=== PATIENT | female | born 1995 | race Caucasian/White ===

== ENCOUNTER → 2017-01-22 | Outpatient (CLI) | payer BC, MEDICAID ==
[~2017-01-22] MED LIST: AZTH250C PO; HYDR-3583 PO; IBP800T PO; PRD20T PO; SULF-222 PO
--- NOTE | 2017-01-22 14:16 | Diagnostic Imaging Report ---
PROCEDURE: US OB SINGLE FETUS <14 WKS. TECHNIQUE: Multiple real-time grayscale images were obtained over the gravid uterus in various projections. INDICATION: Uncertain dates. FINDINGS: There are no prior studies available for comparison. There is a gestational sac within the uterus containing a single live embryo. Embryonic heart motion is noted and a rate of 169 bpm is recorded. The crown-rump length suggests the estimated gestational age is 7 weeks 2 days +/- 1-1/2 week. There are no obvious embryonic abnormalities evident. The amniotic fluid volume is within normal limits. At this time, it is not certain where the placenta will develop. Neither ovary is identified. There is no solid pelvic mass or free fluid collection evident. IMPRESSION: 1. There is a single live intrauterine of approximately 7 weeks 2 days gestation +/- 1-1/2 week. EDC is September 08, 2017. 2. There are no obvious embryonic abnormalities identified. 3. If a more sensitive evaluation of the anatomy is desired, then a follow-up exam in 12-14 weeks will be recommended. Dictated by: Dictated on workstation # [id number]
== END ==
LOC: RAD 11:30
PROVIDERS: ATTEND Family Medicine
DX: Z36 Encounter for antenatal screening of mother (principal); Z3A.01 Less than 8 weeks gestation of pregnancy
CPT/HCPCS: 76801

== ENCOUNTER 2017-02-23 20:13 | Emergency (ER) | payer BC ==
[~2017-02-23] VITALS: Ht 167.6 cm; Wt 64.0 kg
[2017-02-23] MEDS ORDERED: ALBU2.5V4 (21:19)
[2017-02-23] MEDS ORDERED: AZIT250T12 (21:19)
[2017-02-23] MEDS ORDERED: PROM25TA14 (21:19)
[2017-02-23] MEDS ORDERED: RT-ALBUTEROL SULF 2.5 MG/3 ML PRE-MIX VIAL INH STA (21:51)
[2017-02-23] MEDS ORDERED: predniSONE 20 MG TAB PO ONE (22:00)
[2017-02-23] MEDS ORDERED: CEPHALEXIN 250 MG (KEFLEX) CAP PO ONE (22:00)
--- NOTE | 2017-02-23 22:12 | ED Cough/URI ---
General Chief Complaint: Respiratory Problems Stated Complaint: CHEST PAIN POSS PNEUMONIA 12 WKS PG Nursing Triage Note: COUGH, CHEST WALL PAIN NO IMPROVEMENT WITH ABX. 12WEEKS Source: patient Exam Limitations: no limitations History of Present Illness Time seen by provider: 21:45 Initial Comments 21-year-old female patient presents to the emergency department complains of cough, chest wall pain with coughing, and wheezing. States she is approximately 12 weeks . Patient was started on Zithromax on by Dr. Israel. Also placed on albuterol breathing treatments without improvement in symptoms. Does state she is coughing up clear sputum. Denies fevers or chills. Patient has a h/o asthma but "grew out of it". Patient reports smoking until 2 wks ago, but significant other still smokes around the patient. Timing/Duration: week Severity/Quality: productive cough (clear productive cough) Prior Episodes/Possible Cause: no prior episodes Modifying Factors: Worse With Antibiotics (no improvement with antibiotics and albuterol.), Worse With Coughing Allergies and Home Medications Allergies Coded Allergies: No Known Drug Allergies (Unverified , 12/28/12) Home Medications Albuterol Sulfate 2.5 Mg/3 Ml Vial.neb, (Reported) Albuterol Sulfate 2.5 Mg/3 Ml Vial.neb, 2.5 MG IH Q4H PRN for SHORTNESS OF BREATH, #25 Ref 0 Prescribed by: JOSE RICO on 02/23/172225 Azithromycin 250 Mg Tablet, (Reported) Cephalexin 500 Mg Capsule, 500 MG PO TID, #21 Ref 0 Prescribed by: JOSE RICO on 02/23/172225 Prednisone 20 Mg Tab, 40 MG PO DAILY, #8 Ref 0 Prescribed by: JOSE RICO on 02/23/176 Promethazine HCl 25 Mg Tablet, (Reported) Constitutional: No chills, No fever, malaise EENTM: nose congestion, No ear discharge, No ear pain, No throat pain, No throat swelling Respiratory: No see HPI, cough, No dyspnea on exertion, phlegm, No short of breath, No stridor, wheezing, other (rib pain with coughing.) Cardiovascular: No chest pain, No edema, No palpitations, No syncope Gastrointestinal: No abdominal pain, No constipation, No diarrhea, No nausea, No vomiting Genitourinary: no symptoms reported Expected Date of Delivery: Sep 08, 2017 Musculoskeletal: no symptoms reported Skin: no symptoms reported Psychiatric/Neurological: No Symptoms Reported All Other Systems Reviewed Negative Unless Noted: Yes (Negative excepted noted.) Past Soekhlc-Wnhhre-Dshqth Hx Patient Social History Alcohol Use: Denies Use Recreational Drug Use: No Smoking Status: Never a Smoker 2nd Hand Smoke Exposure: No Recent Foreign Travel: No Contact w/Someone Who Travel: No Recent Infectious Disease Expo: No Recent Hopitalizations: No Immunizations Up To Date Tetanus Booster (TDap): Unknown PED Vaccines UTD: Yes Seasonal Allergies Seasonal Allergies: No Surgeries History of Surgeries: Yes Surgeries: Breast, Eye Surgery Respiratory History of Respiratory Disorde: Yes (BRONCHITIS) Respiratory Disorders: Asthma Cardiovascular History of Cardiac Disorders: No Neurological History of Neurological Disord: No Reproductive System : Yes Expected Date of Delivery: Sep 08, 2017 Last Menstrual Period: Nov 25, 2016 Hx : 1 Hx Para: 0 Hx Reproductive Disorders: No Genitourinary History of Genitourinary Disor: No Gastrointestinal History of Gastrointestinal Di: No Musculoskeletal History of Musculoskeletal Dis: No Endocrine History of Endocrine Disorders: No HEENT History of HEENT Disorders: No Cancer History of Cancer: No Psychosocial History of Psychiatric Problem: Yes Behavioral Health Disorders: Anxiety, Depression Integumentary History of Skin or Integumenta: No Blood Transfusions History of Blood Disorders: No Adverse Reaction to a Blood Tr: No Reviewed Nursing Assessment Reviewed/Agree w Nursing PMH: Yes Family Medical History Significant Family History: No Pertinent Family Hx Physical Exam Vital Signs Vital Sign - Last 12Hours 02/23/17 21:19 Temp 98.7 Pulse 105 Resp 18 B/P (MAP) 97/65 Pulse Ox 93 O2 Delivery Room Air Capillary Refill : Less Than 3 Seconds General Appearance: WD/WN, no apparent distress HEENT: PERRL/EOMI, normal ENT inspection, TMs normal, pharynx normal Neck: non-tender, full range of motion, supple, normal inspection Respiratory: no respiratory distress, no accessory muscle use, other (coarse BS bilaterally in all lung ontiveros. Anterior chest wall TTP.) Cardiovascular: normal peripheral pulses, regular rate, rhythm, no edema, no murmur Gastrointestinal: normal bowel sounds, non tender, soft, no organomegaly Extremities: no pedal edema, normal capillary refill Neurologic/Psychiatric: alert, normal mood/affect, oriented x 3 Skin: normal color, warm/dry Progress/Results/Core Measures Results/Orders My Orders Orders - JOSE RICO Albuterol Pre-Mix Nebs (Rt) (Proventil P (02/23/17 21:51) Svn Sm Volume Nebulizer Rt-Rfs (02/23/17 21:51) Prednisone Tablet (Deltasone Tablet) (02/23/17 22:00) Cephalexin Capsule (Keflex Capsule) (02/23/17 22:00) Medications Given in ED Current Medications Medications Dose Ordered Sig/Rey Route Start Time Stop Time Status Last Admin Dose Admin Cephalexin HCl 500 mg ONCE ONCE PO 02/23/17 22:00 02/23/17 22:01 DC 02/23/17 22:01 500 MG Prednisone 40 mg ONCE ONCE PO 02/23/17 22:00 02/23/17 22:01 DC 02/23/17 22:00 40 MG Vital Signs/I&O Vital Sign - Last 12Hours 02/23/17 02/23/17 21:19 22:06 Temp 98.7 Pulse 105 Resp 18 B/P (MAP) 97/65 Pulse Ox 93 99 O2 Delivery Room Air Room Air Blood Pressure Mean: 76 Departure Communication (Admissions) Progress Notes Patient seen and evaluated. I did offer CXR to the patient and have discussed all risks, benefits, and possible complications. Patient does NOT want CXR performed at this time. Therefore, patient was given keflex 500 mg po, prednisone 40 mg po and an albuterol neb tx. Patient shows improved BS bilaterally with BS clear in all lung ontiveros. Patient voices feeling much better at this time. Plan for discharge to home. Patient follow-up with Dr. Israel on as previously scheduled. Impression Impression: Primary Impression: Acute bronchitis Qualified Codes: J20.9 - Acute bronchitis, unspecified Additional Impression: 12 weeks gestation of Disposition: HOME, SELF-CARE Condition: Improved Departure-Patient Inst. Decision time for Depature: 22:23 Referrals: [facility] (PCP/Family) Primary Care Physician JOSE EDUARDO ISRAEL MD Patient Instructions: Acute Bronchitis, Adult (DC) Add. Discharge Instructions: All discharge instructions reviewed with patient and/or family. Voiced understanding. Medications as directed. Tylenol extra strength [id number] as directed for pain. Avoid exposure to cigarette smoke. Drink plenty of fluids. Rest. Follow-up with Dr. Israel this week as previously scheduled. Return to the emergency department for worsened symptoms or any other concerns. Scripts Albuterol Sulfate (Albuterol Sulfate) 2.5 Mg/3 Ml Vial.neb 2.5 MG IH Q4H Y for SHORTNESS OF BREATH, #25 EA 0 Refills Prov: JOSE RICO 02/23/17 Prednisone (Prednisone) 20 Mg Tab 40 MG PO DAILY, #8 TAB 0 Refills Prov: JOSE RICO 02/23/17 Cephalexin (Cephalexin) 500 Mg Capsule 500 MG PO TID, #21 CAP 0 Refills Prov: JOSE RICO 02/23/17 Work/School Note: Work Release Form Date Seen in the Emergency Department: Feb 23, 2017 Return to Work: Feb 25, 2017 JOSE RICO Feb 23, 2017 22:11
[2017-02-23] MEDS ORDERED: PRD20T PO (22:26)
[2017-02-23] MEDS ORDERED: CEPH500C PO (22:26)
[2017-02-23] MEDS ORDERED: ALBU2.5V4 IH (22:26)
[2017-02-23 22:47] VITALS: BP 115/73
== END 2017-02-23 22:45 | disposition home or self-care (01) ==
LOC: EDUNIT# 20:13 → ER 20:16
DX: O99.511 Diseases of the respiratory system complicating pregnancy, first trimester (principal); J20.9 Acute bronchitis, unspecified; J45.909 Unspecified asthma, uncomplicated; O99.341 Other mental disorders complicating pregnancy, first trimester; F41.9 Anxiety disorder, unspecified; F32.9 Major depressive disorder, single episode, unspecified; Z3A.12 12 weeks gestation of pregnancy
CPT/HCPCS: 94640; 99283

== ENCOUNTER → 2017-07-29 | Outpatient (CLI) | payer BC, MEDICAID ==
[~2017-07-29] MED LIST changes: +ALBU2.5V4; +ALBU2.5V4 IH; +AZIT250T12; +CEPH500C PO; +PROM25TA14
--- NOTE | 2017-07-29 12:55 | Diagnostic Imaging Report ---
INDICATION: Evaluate growth, four-chamber heart view, as well as amniotic fluid volume and placenta. TECHNIQUE: Multiple real-time grayscale images were obtained over the gravid uterus. COMPARISON: 04/08/2017. FINDINGS: There is a single live fetus in a cephalic presentation. The placenta is fundal. The amniotic fluid volume is normal. heart rate was recorded at 138 beats per minute. Cervix is 3.6 cm in length. survey does show four-chamber heart view on today's exam. Biometrical measurements are as follows: Biparietal 8.28 cm, age 33 weeks 3 days. Head circumference 30.11 cm, age 33 weeks 3 days. Abdominal circumference 29.28 cm, age 33 weeks 2 days. Femur length 6.32 cm, age 32 weeks 5 days. Sonographic estimate age: 33 weeks 2 days. Sonographic estimated date of delivery: 09-08-17. Estimated Weight: 2124 gm (+/- 310 gm). LMP percentile: 18%. heart rate: 138 beats per minute. number: 1 of 1. IMPRESSION: Single live IUP approximately 33 weeks gestational age demonstrating normal interval growth when compared with prior exam from 04/08/2017. Dictated by: Dictated on workstation # [id number]
== END ==
LOC: RAD 10:34
PROVIDERS: ATTEND Family Medicine
DX: Z34.03 Encounter for supervision of normal first pregnancy, third trimester (principal); Z3A.33 33 weeks gestation of pregnancy
CPT/HCPCS: 76816

== ENCOUNTER → 2017-08-14 | Outpatient (CLI) | payer MEDICAID ==
[~2017-08-14] MED LIST changes: +NITR-65 PO; +PREN-53 PO
--- NOTE | 2017-08-14 16:36 | Diagnostic Imaging Report ---
INDICATION: Small for gestational age, followup. TECHNIQUE: Multiple real-time grayscale images were obtained over the gravid uterus. COMPARISON: 01/22/2017 through 07/29/2017. FINDINGS: Single viable intrauterine , currently in cephalic presentation. Lower limits amount of amniotic fluid with an index at 8.8 cm. Placenta is along the fundal aspect and without previa. Biometrical growth parameters demonstrate an estimated age of 34 weeks 3 days for an estimated date of September 22, 2017. This is approximately 2 weeks delayed compared to baseline dating. Biometrical measurements are as follows: Biparietal 8.44 cm, age 24 weeks 0 days. Head circumference 30.66 cm, age 34 weeks 2 days. Abdominal circumference 29.5 cm, age 33 weeks 4 days. Femur length 6.93 cm, age 35 weeks 4 days. Sonographic estimate age: 34 weeks 2 days. Sonographic estimated date of delivery: 09/22/2017. Estimated Weight: 2373 gm (+/- 346 gm). LMP percentile: 8%. heart rate: 127 beats per minute. number: 1 of 1. IMPRESSION: Single viable intrauterine , currently in cephalic presentation. Current sonographically estimated age at 34 weeks 3 days for an estimated date of delivery of September 22, 2017. This is measuring approximately 2 weeks delayed compared to baseline assessment and 8 days delayed compared to most recent imaging. Clinical correlation is recommended. Dictated by: Dictated on workstation # [id number]
== END ==
LOC: RAD 15:24
PROVIDERS: ATTEND Family Medicine
DX: O36.5930 Maternal care for other known or suspected poor fetal growth, third trimester, not applicable or unspecified (principal); Z3A.34 34 weeks gestation of pregnancy
CPT/HCPCS: 76816

== ENCOUNTER 2017-08-15 16:40 | Outpatient (RCR) | payer MEDICAID ==
[~2017-08-15 16:40] MED LIST changes: -NITR-65 PO; -PREN-53 PO
[2017-08-15] MEDS ORDERED: BETAMETHASONE ACE/NA PHOS 6 MG/ML (CELESTONE SOLUSPAN) ONE ×2 (16:45→16:47)
[2017-08-15] MEDS ORDERED: BETAMETHASONE ACE/NA PHOS 6 MG/ML (CELESTONE SOLUSPAN) IM SCH (17:00)
[2017-08-16] MEDS ORDERED: BETAMETHASONE ACE/NA PHOS 6 MG/ML (CELESTONE SOLUSPAN) IM ONE ×3 (09:00)
[2017-08-16] MEDS ORDERED: BETAMETHASONE ACE/NA PHOS 6 MG/ML (CELESTONE SOLUSPAN) IM SCH (16:00)
[2017-08-16] MEDS ORDERED: NITR-65 PO (16:58)
[2017-08-16] MEDS ORDERED: PREN-53 PO (16:58)
[2017-08-18] MEDS ORDERED: LORA1TAB PO (18:37)
[2017-08-18] MEDS ORDERED: IBUP-1773 PO (18:37)
[2017-08-18] MEDS ORDERED: ACHD5005 PO (18:37)
[2017-08-18] MEDS ORDERED: NITR100C10 PO (18:37)
== END 2017-11-13 | disposition home or self-care (01) ==
LOC: WSo 16:40 → LDRP 16:40 → WSo 17:00 → LDRP 17:00 → EDSTATUS 08-16 15:54
PROVIDERS: ATTEND Family Medicine
DX: O36.5930 Maternal care for other known or suspected poor fetal growth, third trimester, not applicable or unspecified (principal)
CPT/HCPCS: 96372

== ENCOUNTER 2017-08-16 16:33 | Outpatient (CLI) | payer MEDICAID ==
[2017-08-16] MEDS ORDERED: BETAMETHASONE ACE/NA PHOS 6 MG/ML (CELESTONE SOLUSPAN) IM NR (16:45)
[2017-08-16] MEDS ORDERED: BETAMETHASONE ACE/NA PHOS 6 MG/ML (CELESTONE SOLUSPAN) IM SCH (16:45)
[2017-08-16 16:46] VITALS: BP 124/74
[2017-08-16] MEDS ORDERED: NITR-65 PO (16:58)
[2017-08-16] MEDS ORDERED: PREN-53 PO (16:58)
[2017-08-17] MEDS ORDERED: RT-ALBUTEROL/IPRATROPIUM 3 ML (DUONEB) VIAL ONE (01:22)
--- NOTE | 2017-08-18 16:22 | Physician Query-Final Dx ---
JUNIE LOCKHART 08/18/17 1622: Clinic Account Progress/Dx Physician Query: Please give diagnosis Date of Service Aug 16, 2017 at 16:33 ABHINAV GOEL DO 08/18/17 1720: Clinic Account Progress/Dx DIAGNOSIS: Diagnosis Decreased Movement JUNIE LOCKHART Aug 18, 2017 16:22 ABHINAV GOEL DO Aug 18, 2017 17:20
== END 2017-08-16 17:00 | disposition home or self-care (01) ==
LOC: WSo 16:33 → LDRP 16:34 → WSo 17:00
PROVIDERS: ATTEND Family Medicine
DX: O36.8130 Decreased fetal movements, third trimester, not applicable or unspecified (principal); Z3A.36 36 weeks gestation of pregnancy
CPT/HCPCS: 96372

== ENCOUNTER 2017-08-17 20:20 | Inpatient (IN) | payer MEDICAID ==
[~2017-08-17] VITALS: Ht 167.6 cm; Wt 76.4 kg
[~2017-08-17 20:20] MED LIST changes: +NITR-65 PO; +PREN-53 PO
[2017-08-17] MEDS ORDERED: MINERAL OIL CONCENTRATE 99.9% 15 ML UDC TOP PRN (20:30)
[2017-08-17] MEDS ORDERED: DINOPROSTONE 10 MG (CERVIDIL) INSERT PV ONE (20:30)
[2017-08-17] MEDS ORDERED: ZOLPIDEM 5 MG (AMBIEN) TAB PO PRN (20:30)
[2017-08-17 21:29] LABS: BASOPHILS % (AUTO) 0 % (0-10); EOSINOPHILS % (AUTO) 0 % (0-10); HEMATOCRIT 33 % (35-52); HEMOGLOBIN 11.1 G/DL (11.5-16.0); LYMPHOCYTES # (AUTO) 2.5 X 10^3 (1.0-4.0); LYMPHOCYTES % (AUTO) 13 % (12-44); MEAN CORPUSCULAR HEMOGLOBIN 31 PG (25-34); MEAN CORPUSCULAR HGB CONC 34 G/DL (32-36); MEAN CORPUSCULAR VOLUME 90 FL (80-99); MONOCYTES # (AUTO) 1.6 X 10^3 (0.0-1.0); MONOCYTES % (AUTO) 9 % (0-12); NEUTROPHILS # (AUTO) 14.5 X 10^3 (1.8-7.8); NEUTROPHILS % (AUTO) 78 % (42-75); PLATELET COUNT 235 10^3/uL (130-400); RED BLOOD COUNT 3.62 10^6/uL (4.35-5.85); RED CELL DISTRIBUTION WIDTH 13.5 % (10.0-14.5); WHITE BLOOD COUNT 18.7 10^3/uL (4.3-11.0)
[2017-08-17] MEDS: D5 LR IV SOLUTION 1,000 ML IV SCH (21:29)
[2017-08-17 21:30] VITALS: BP 128/78
[2017-08-17 22:00] VITALS: BP 135/91
[2017-08-17] MEDS ORDERED: CATHETER FLUSH 10 ML SYR IV SCH (22:00)
[2017-08-17 22:14] VITALS: BP 118/75
[2017-08-17 22:15] VITALS: BP 125/75
[2017-08-17 23:15] VITALS: BP 110/63
[2017-08-17] MEDS ORDERED: BUTORPHANOL INJ 2 MG/ML (STADOL) VIAL IV ONE (23:30)
[2017-08-18] VITALS (63 sets, daily range): BP systolic 90–135; BP diastolic 50–83
[2017-08-18] MEDS ORDERED: BUTORPHANOL INJ 2 MG/ML (STADOL) VIAL IV ONE (00:45)
[2017-08-18] MEDS: D5 LR IV SOLUTION 1,000 ML IV SCH ×2 (03:13→09:57)
--- NOTE | 2017-08-18 06:05 | History & Physical-OB ---
OB - Chief Complaint & HPI Date/Time Date of Admission: Date of Admission: Aug 17, 2017 at 20:20 Time Seen by Provider: 06:30 Chief Complaint/History OB-Reason for Admission/Chief: Induction of Labor Hx : 1 Hx Para: 0 Hx Last Menstrual Period: 12/01/2016 Expected Date of Delivery: Sep 08, 2018 Gestational Age in Weeks: 37 Gestational Age in Days: 0 Indication for induction: other ( growth restriction with continued dropping off of growth, decreasing HERMANN) Admission Nurse Assessment Rev: Yes Allergies and Home Medications Allergies Coded Allergies: No Known Drug Allergies (Unverified , 12/28/12) Home Medications Qoh253/Iron Fumarate/FA/Dss 1 Each Tablet, 1 EACH PO DAILY, (Reported) Patient Home Medication List Home Medication List Reviewed: Yes OB - History Hx of Present Care: Yes Ultrasounds: Normal mid trimester US (poor heart views; appropriate cardiac views obtained on repeat US at 33 wks), Abnormal US findings ( growth trending down, with most recent US at 36 4/7 wks showing growth now dropped to 8th %-tile with assymetric growth and HC <2nd %-tile; previous growth three weeks prior showed growth symmetric in 18th %-tile) Obstetrical Complications: Growth Restriction Medical Complications: None Information Pre-Hospital Medication Admins: Macrobid for suspected UTI started on 08/14/17, culture pending Induced Hypertension: No Maternal Gestational Diabetes: No Hemorrhage: No Obstetrical History Hx : 1 Hx Para: 0 Hx # Term Pregnancies: 0 Hx # Pregnancies: 0 Number of Living Children: 0 Hx Termination: No Hx Total # of Abortions (Spona: 0 Hx Multiple Gestation: No Hx Ectopic : No Hx Stillbirth: No Hx Complication: No Hx Induced Hypertens: No Hx Maternal Gestational Diabet: No Hx Hemorrhage: No Delivery History Hx Dystocia: No Hx Forceps Assisted Delivery: No Hx Vacuum Extraction Assisted: No Hx Placenta Abnormality: No Hx Distress: No Hx Large For Gestational Age I: No Hx Small for Gestational Age I: No Hx Section: No Hx Vaginal Delivery Post C-Sec: No Hx Blood Disorders: No Adverse Rxn to Tranfusion: No Patient Past Medical History mild intermittent asthma scoliosis bipolar disorder depression tobacco abuse PTSD 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 Migraines Social History/Family History HIV/AIDS: No Recent Infectious Disease Expo: No Sexually Transmitted Disease: No Alcohol Use: Denies Use Recreational Drug Use: No Smoking Cessation: Former smoker 2nd Hand Smoke Exposure: No Immunizations Hepatitis A: Yes Hepatitis B: Yes Tetanus Booster (TDap): Less than 5yrs Rubella: immune RPR/VDRL: Negative GBS Status: Negative HBsAG: Negative OB - Admission Exam Physical Exam Vitals: Vital Signs 08/18/17 08/18/17 03:50 04:15 Temp 97.2 Pulse 87 Resp 18 B/P (MAP) 111/71 (84) Pulse Ox 100 O2 Delivery Non Rebreather O2 Flow Rate 15.00 HEENT: NCAT Lungs: Wheezes, Diffuse Abdomen: Gravid Extremities: Normal Reflexes: Normal Cervical Dilatation: 3cm Effacement: Other (80%) Station: -2 Membranes: Intact Heart Rate: 130's Accelerations: Accelerations Present Decelerations: No Decelerations Mcc Variability: Average (6-25) Nuñez Scoring Tool (Modified) Dilation (cm): 3-4cm (2) Effacement (%): 80-100% (3) Descent/Station: -2 (1) Cervix Consistency: Soft (2) Cervix Position: Anterior (2) Subtract 1 point for: Nulliparity (-1) Nuñez Score: 9 Labs Laboratory Tests Test 08/17/17 21:00 Range/Units White Blood Count 18.7 H 4.3-11.0 10^3/uL Red Blood Count 3.62 L 4.35-5.85 10^6/uL Hemoglobin 11.1 L 11.5-16.0 G/DL Hematocrit 33 L 35-52 % Mean Corpuscular Volume 90 80-99 FL Mean Corpuscular Hemoglobin 31 25-34 PG Mean Corpuscular Hemoglobin Concent 34 32-36 G/DL Red Cell Distribution Width 13.5 10.0-14.5 % Platelet Count 235 130-400 10^3/uL Mean Platelet Volume 13.0 H 7.4-10.4 FL Neutrophils (%) (Auto) 78 H 42-75 % Lymphocytes (%) (Auto) 13 12-44 % Monocytes (%) (Auto) 9 0-12 % Eosinophils (%) (Auto) 0 0-10 % Basophils (%) (Auto) 0 0-10 % Neutrophils # (Auto) 14.5 H 1.8-7.8 X 10^3 Lymphocytes # (Auto) 2.5 1.0-4.0 X 10^3 Monocytes # (Auto) 1.6 H 0.0-1.0 X 10^3 Eosinophils # (Auto) 0.0 0.0-0.3 10^3/uL Basophils # (Auto) 0.0 0.0-0.1 10^3/uL OB - Assessment/Plan/Diagnosis Assessment Assessment: induction of labor Admission Dx 37 week IUP Growth Restriction with Asymmetric Growth Induction of Labor GBS Negative Admission Status: Inpatient Order (span 2 midnights) Reason for Inpatient Admission: status at this gestation favors delivery Plan Plan: Induction Induction Method: per Pitocin Protocol Other Plan Patient was a transfer of care to my care at ~32 wks gestation; originally had established care with Dr. Almaraz, had a normal 18-19 week US at [facility], and then transferred care from him to an unknown provider until arriving for 32 wk visit in our office. Patient reports that had been uncomplicated. No previous records were received. Morphology scan was reviewed and noted that four chamber heart was not well visualized, and follow up US was ordered. This was obtained at [facility] at 33 weeks gestation, and showed normal heart views and symmetric growth that was in the 18th %-tile. Previous US had shown growth in the 40-50th %-tile for dates. Repeat growth scan was obtained on 08/14 at 36 4/7 wks. When report reviewed in [facility] system, noted that growth now appeared asymmetric with HC < 2nd %-tile and overall growth in 8th %-tile. Given gestation and poor interval growth, patient was contacted and findings discussed. Recommended late course of betamethasone and then induction 24 hours later. Risks and benefits discussed with patient, questions answered and understanding verbalized. Pt is now 36 hrs s/p betamethasone x2 and 37 0/7 wks gestation. She received Cervidil last night for cervical ripening, and contracted well, at one point having a period of hyperstimulation. She has made some cervical change, was 3 cm at 0200. Cervidil was pulled around 0200 for hyperstimulation. Patient desires epidural prior to AROM, as she is very uncomfortable with cervical exams. Will have epidural placed and then have AROM and pitocin. Okay to give stadol now as patient is very anxious about epidural. On exam lung sounds with diffuse wheezing and mildly diminished in bilateral bases. Pt is a smoker. WBC elevated on admission. Pt was being treated for UTI as outpatient. Possibilities for elevated WBC include recent betamethasone administration, UTI prior to admission or possible pneumonic process, although find pneumonic process less likely as patient denies shortness of breath. Will continue to monitor and if concerns arise, will obtain CXR. Anticipate vaginal delivery. Copy Copies To 1: ABHINAV GOEL MARGARET E DO Aug 18, 2017 06:05
[2017-08-18] MEDS ORDERED: BUTORPHANOL INJ 2 MG/ML (STADOL) VIAL IV NR (07:15)
[2017-08-18] MEDS ORDERED: LACTATED RINGERS 1,000 ML IV SCH (08:41)
[2017-08-18] MEDS ORDERED: METOCLOPRAMIDE INJ 10 MG/2 ML (REGLAN) IV PRN (08:45)
[2017-08-18] MEDS ORDERED: ONDANSETRON 4 MG/2 ML (SDV) Z0FRAN IV PRN (08:45)
[2017-08-18] MEDS ORDERED: NALOXONE 0.4 MG/ML 1 ML (NARCAN) VIAL IV PRN ×2 (08:45)
[2017-08-18] MEDS ORDERED: EPIDURAL (SUFENTA 0.6MCG/ML BUPIVA 0.125%) 100 ML BAG EPI SCH (08:45)
[2017-08-18] MEDS ORDERED: diphenhydrAMINE 50 MG/ML INJ (BENADRYL) IV PRN (08:45)
[2017-08-18] MEDS: OXYTOCIN/NORMAL SALINE 500 ML IV SCH ×2 (09:15→15:52)
--- OUTSIDE RECORDS SUMMARY | 2017-08-18 10:25 | XMS REPORT ---
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 mention of hyperactivity 314.00 Active 53715178 Problem Migraine with aura, without mention of intractable migraine without mention of status migrainosus 346.00 Active 865643983 Problem Unspecified anemia 285.9 Active 158640753 Problem Unspecified contraceptive management V25.9 Active 242220886 Problem General counseling for initiation of other contraceptive measures V25.02 Active 173313393284542 Problem Asthma, unspecified, unspecified status 493.90 Active 49031744 Problem Major depressive disorder, recurrent episode, severe, without mention of psychotic behavior 296.33 Active 01958620 Problem Scoliosis (and kyphoscoliosis), idiopathic 737.30 Active 04135249 Problem Unspecified episodic mood disorder 296.90 Active 588487939 Problem Posttraumatic stress disorder 309.81 Active 14070529 Problem Bipolar disorder, unspecified 296.80 Active 30121483 Problem Surveillance of other previously prescribed contraceptive method V25.49 Active 835150193 ALLERGIES Unknown Allergies SOCIAL HISTORY No smoking Hx information available PLAN OF CARE VITAL SIGNS MEDICATIONS Unknown Medications RESULTS No Results PROCEDURES No Known procedures IMMUNIZATIONS No Known Immunizations
--- OUTSIDE RECORDS SUMMARY | 2017-08-18 10:25 | XMS REPORT | Continuity of Care Document ---
Author Author [employer] Organization [facility] Address Unknown Phone Unavailable Care Team Providers Care Guest Services Assistant Name Role Phone [employer] Unavailable Unavailable Problems Problem Status Onset Date Classification Date Reported Comments Source Asthma (disorder) Active Problem 07/02/2013 [facility] Depressive disorder (disorder) Active Problem 07/02/2013 [facility] Medications Medication Details Route Status Patient Instructions Ordering Provider Order Date Source Albuterol 0.083% Soln Inhaled, PRN Wheezing or Cough, Refill(s) 0 [facility] Depo-Provera 1 injection, every 3 months, last dose was 2011, Refill(s) 0 every 3 months, last dose was 2011 [facility] Allergies, Adverse Reactions, Alerts Immunizations Results Vital Signs Encounters Location Location Details Encounter Type Encounter Number Reason For Visit Attending Provider ADM Date DC Date Status Source CMB CMB CLI [id number] stents per mom Lorenzo Hartman 07/01/2013 07/01/2013 [facility] Procedures Plan of Care Social History Assessment and Plan Family History Advance Directives Functional Status
--- OUTSIDE RECORDS SUMMARY | 2017-08-18 10:26 | XMS REPORT ---
Author Author UNA ROMANO [facility] [employer] Address Unknown Phone Unavailable Care Team Providers Care Spring Former Hand Name Role Phone UNA ROMANO CP Unavailable Allergies, Adverse Reactions, Alerts Substance Reaction Event Type N.K.D.A. Info Not Available Non Drug Allergy Problems Problem Type Condition Code Onset Dates Condition Status Problem Posttraumatic stress disorder 309.81 Active Problem Nondependent tobacco use disorder 305.1 Active Problem Surveillance of other previously prescribed contraceptive method V25.49 Active Problem Unspecified contraceptive management V25.9 Active Problem General counseling for initiation of other contraceptive measures V25.02 Active Problem Attention deficit disorder of childhood without mention of hyperactivity 314.00 Active Problem Unspecified hypertrophic and atrophic condition of skin 701.9 Active Problem Enthesopathy of unspecified site 726.90 Active Problem Migraine with aura, without mention of intractable migraine without mention of status migrainosus 346.00 Active Problem Unspecified anemia 285.9 Active Problem Unspecified episodic mood disorder 296.90 Active Problem Bipolar disorder, unspecified 296.80 Active Assessment Screening breast examination Z12.39 Active Problem Major depressive disorder, recurrent episode, severe, without mention of psychotic behavior 296.33 Active Problem Asthma, unspecified, unspecified status 493.90 Active Problem Scoliosis (and kyphoscoliosis), idiopathic 737.30 Active Medications Medication Code System Code Instructions Start Date End Date Status Dosage Diflucan [facility] [address]-68 150 MG Orally one time December 05, 2015 1 tablet Lamictal [facility] [address]-93 25 MG Orally Once a day at HS May 11, 2015 1 tablets Voltaren [facility] [address]-77 1 % Transdermal 4 times a day PRN September 07, 2015 1 gm Albuterol [facility] 0 90 mcg/actuation inhale 2 puffs by Inhalation route as needed every 4-6 hours PRN for cough/wheezing/shortness of breath Pristiq [facility] [address]-85 50 MG Orally Once a day May 11, 2015 1 tablet Procedures Procedure Coding System Code Date Office Visit, Est Pt., Level 3 CPT-4 15644 Feb 02, 2016 Vital Signs Date/Time: Feb 02, 2016 Cardiac Monitoring Heart Rate 88 bpm Weight 132.8 lbs Height 64 in BMI 22.79 Index Blood Pressure Diastolic 70 mmHg Blood Pressure Systolic 110 mmHg Results No Known Results Summary Purpose [employer] Submission
--- OUTSIDE RECORDS SUMMARY | 2017-08-18 10:26 | XMS REPORT ---
Author Author UNA ROMANO [facility] Address [address] [place] [address] Care Team Providers Care Western Philosophy Professor Name Role Phone UNA ROMANO Unavailable PROBLEMS Type Condition ICD9-CM Code [id number] Code Onset Dates Condition Status SNOMED Code Problem Surveillance of other previously prescribed contraceptive method V25.49 Active 338676907 Problem Enthesopathy of unspecified site 726.90 Active 39402228 Problem Nondependent tobacco use disorder 305.1 Active 625937106 Problem Attention deficit disorder of childhood without mention of hyperactivity 314.00 Active 63470288 Problem Unspecified contraceptive management V25.9 Active 026318228 Problem Unspecified anemia 285.9 Active 076473003 Problem Unspecified hypertrophic and atrophic condition of skin 701.9 Active 528941429 Problem General counseling for initiation of other contraceptive measures V25.02 Active 000485377110411 Problem Migraine with aura, without mention of intractable migraine without mention of status migrainosus 346.00 Active 635504135 Assessment Encounter for surveillance of injectable contraceptive Z30.42 Feb, Active 321263457 Assessment Contraceptive education Z30.09 Feb, Active 672430440 Assessment Encounter for Depo-Provera contraception Z30.42 Feb, Active 334789090 Problem Bipolar disorder, unspecified 296.80 Active 36976877 Problem Major depressive disorder, recurrent episode, severe, without mention of psychotic behavior 296.33 Active 57626701 Problem Asthma, unspecified, unspecified status 493.90 Active 86255149 Problem Scoliosis (and kyphoscoliosis), idiopathic 737.30 Active 31892814 Problem Unspecified episodic mood disorder 296.90 Active 653309618 Problem Posttraumatic stress disorder 309.81 Active 69467133 ALLERGIES Substance Reaction Event Type Date Status N.K.D.A. Unknown Non Drug Allergy Feb, Unknown SOCIAL HISTORY No smoking Hx information available PLAN OF CARE VITAL SIGNS Height 64 in 2016-02-29 Weight 130.1 lbs 2016-02-29 Heart Rate 80 bpm 2016-02-29 Respiratory Rate 16 2016-02-29 BMI 22.33 kg/m2 2016-02-29 Blood pressure systolic 100 mmHg 2016-02-29 Blood pressure diastolic 68 mmHg 2016-02-29 MEDICATIONS Medication Instructions Dosage Frequency Start Date End Date Duration Status Pristiq 50 MG Orally Once a day 1 tablet 24h May, 30 day(s) Active Lamictal 25 MG Orally Once a day at HS 1 tablets May, Active RESULTS Name Result Date Reference Range TEST, URINE (IN HOUSE) 2016-02-29 RESULTS negative Lot # [id number] Control + Exp date 09/06/3017 PROCEDURES Procedure Date Ordered Related Diagnosis Body Site Office Visit, Est Pt., Level 3 Feb 29, 2016 URINE TEST Feb 29, 2016 THER/PROPH/DIAG INJ, SC/IM Feb 29, 2016 DEPO PROVERA (150 MG/ML) Feb 29, 2016 IMMUNIZATIONS Vaccine Route Administration Date Status DEPO PROVERA (150 MG/ML) IM Intramuscular Feb 29, 2016 Administered
--- OUTSIDE RECORDS SUMMARY | 2017-08-18 10:26 | XMS REPORT ---
Author Author RAFAEL HERNANDEZ eClinical[employer] Address Unknown Phone Unavailable Care Team Providers Care Zoogler Name Role Phone RAFAEL HERNANDEZ Unavailable Allergies, Adverse Reactions, Alerts Substance Reaction Event Type N.K.D.A. Info Not Available Non Drug Allergy Problems Problem Type Condition Code Onset Dates Condition Status Problem Other and unspecified bipolar disorders 296.89 Active Problem Scoliosis (and kyphoscoliosis), idiopathic 737.30 Active Problem Surveillance of other previously prescribed contraceptive method V25.49 Active Problem Posttraumatic stress disorder 309.81 Active Problem Abdominal pain, other specified site 789.09 Active Problem Nondependent tobacco use disorder 305.1 Active Problem Unspecified pruritic disorder 698.9 Active Problem Hip, thigh, leg, and ankle, insect bite, nonvenomous, without mention of infection 916.4 Active Problem Enthesopathy of unspecified site 726.90 Active Problem Stenosis of lacrimal canaliculi 375.53 Active Problem Unspecified otalgia 388.70 Active Problem Unspecified contraceptive management V25.9 Active Problem Unspecified hypertrophic and atrophic condition of skin 701.9 Active Problem Vomiting alone 787.03 Active Problem Acute bronchitis 466.0 Active Problem Other specified symptom associated with female genital organs 625.8 Active Problem Thoracic sprain and strain 847.1 Active Problem Flat foot 734 Active Problem Sprain and strain of unspecified site of back 847.9 Active Problem Migraine with aura, without mention of intractable migraine without mention of status migrainosus 346.00 Active Problem Other specified disease of hair and hair follicles 704.8 Active Problem Lump or mass in breast 611.72 Active Problem Unspecified anemia 285.9 Active Problem Asthma, unspecified, unspecified status 493.90 Active Problem Influenza with other respiratory manifestations 487.1 Active Problem Unspecified conjunctivitis 372.30 Active Problem Tension headache 307.81 Active Assessment Encounter for surveillance of injectable contraceptive Z30.42 Active Problem Acute sinusitis, unspecified 461.9 Active Assessment Depression F32.9 Active Problem Attention deficit disorder of childhood without mention of hyperactivity 314.00 Active Problem Major depressive disorder, recurrent episode, severe, without mention of psychotic behavior 296.33 Active Problem Screening examination for venereal disease V74.5 Active Problem Pain in thoracic spine 724.1 Active Problem Abdominal pain, unspecified site 789.00 Active Problem Unspecified peripheral vertigo 386.10 Active Problem Pain in joint, lower leg 719.46 Active Problem Bipolar disorder, unspecified 296.80 Active Problem General counseling for initiation of other contraceptive measures V25.02 Active Problem Urinary tract infection, site not specified 599.0 Active Problem Acute upper respiratory infections of unspecified site 465.9 Active Problem Unspecified episodic mood disorder 296.90 Active Problem Other specified pre-operative examination V72.83 Active Problem Family history of diabetes mellitus V18.0 Active Problem Candidiasis of vulva and vagina 112.1 Active Medications Medication Code System Code Instructions Start Date End Date Status Dosage Depo-Provera [facility] [address]-70 150 MG/ML Intramuscular 1 ml [address] [facility] [address]-96 25 MG Orally Once a day at HS May 11, 2015 1 tablets [address]ristiq [facility] [address]-96 25 MG Orally Once a day May 11, 2015 2 tablets (1 tab daily first 7 days then increase to 2 tabs daily) Procedures Procedure Coding System Code Date No Charge CPT-4 21669 May 31, 2015 DEPO PROVERA (150 MG/ML) CPT-4 J1050 May 31, 2015 URINE TEST CPT-4 73682 May 31, 2015 Office Visit, Est Pt., Level 3 CPT-4 50421 May 31, 2015 THER/PROPH/DIAG INJ, SC/IM CPT-4 42841 May 31, 2015 Vital Signs Date/Time: May 31, 2015 Temperature 98 F Weight 150.1 lbs Height 64 in BMI 25.76 Index Blood Pressure Diastolic 70 mmHg Blood Pressure Systolic 108 mmHg Cardiac Monitoring Heart Rate 82 bpm BMIPercentile 82.76 % Wt Percentile 80.59 % Results Name Result Date Reference Range Unit Abnormality Flag GC/CHLAM URINE (STATE) ----CHLAMYDIA neg [id number] ----GC neg [id number] Summary Purpose eClinicalWorks Submission
--- OUTSIDE RECORDS SUMMARY | 2017-08-18 10:26 | XMS REPORT ---
Author Author XIMENA ROLDAN Organization [facility] Address [address] [place] [address] Care Team Providers Care Communications Field Technician Name Role Phone XIMENA ROLDAN Unavailable PROBLEMS Type Condition ICD9-CM Code [id number] Code Onset Dates Condition Status SNOMED Code Problem Attention deficit disorder of childhood without mention of hyperactivity 314.00 Active 50470815 Problem Nondependent tobacco use disorder 305.1 Active 129304776 Problem Posttraumatic stress disorder 309.81 Active 48154964 Problem Other chronic pain G89.29 Active 13902705 Problem Anxiety F41.9 Active 17438117 Problem Bipolar disorder, unspecified 296.80 Active 61561135 Problem Unspecified episodic mood disorder 296.90 Active 210557047 Problem Major depressive disorder, recurrent episode, severe, without mention of psychotic behavior 296.33 Active 58712579 Problem Unspecified anemia 285.9 Active 648683288 Problem Unspecified contraceptive management V25.9 Active 210062311 Problem Surveillance of other previously prescribed contraceptive method V25.49 Active 873040726 Problem Unspecified hypertrophic and atrophic condition of skin 701.9 Active 505557116 Problem Enthesopathy of unspecified site 726.90 Active 95061875 Problem General counseling for initiation of other contraceptive measures V25.02 Active 353051265468004 Problem Asthma, unspecified, unspecified status 493.90 Active 74260682 Problem Scoliosis (and kyphoscoliosis), idiopathic 737.30 Active 03877452 Problem Migraine with aura, without mention of intractable migraine without mention of status migrainosus 346.00 Active 2868646 ALLERGIES No Known Allergies SOCIAL HISTORY Never Assessed PLAN OF CARE Activity Details Follow Up prn Reason:if not improving VITAL SIGNS Height 64 in 2016-08-27 Weight 140 lbs 2016-08-27 Temperature 98.9 degrees Fahrenheit 2016-08-27 Heart Rate 92 bpm 2016-08-27 Respiratory Rate 16 2016-08-27 BMI 24.03 kg/m2 2016-08-27 Blood pressure systolic 110 mmHg 2016-08-27 Blood pressure diastolic 62 mmHg 2016-08-27 MEDICATIONS Medication Instructions Dosage Frequency Start Date End Date Duration Status Hydrocortisone 2.5 % Externally Twice a day 1 application to affected area 12h Aug, Sep, 14 days Active Lamictal 25 MG Orally Once a day 1 tablet 24h Active Depo-Provera 150 MG/ML 1 ml Active Pristiq 50 MG Orally Once a day 1 tablet 24h Active RESULTS No Results PROCEDURES No Known procedures IMMUNIZATIONS No Known Immunizations MEDICAL (GENERAL) HISTORY Type Description Date Medical History asthma - mild intermittent Medical History scoliosis Medical History bipolar disorder Surgical History nasal surgery-resection of right turbinate Surgical History tonsillectomy Surgical History right conjunctivodacryocystorhinostomy with insertion of Ramos tube 2012 Hospitalization History surgeries Hospitalization History surgeries
--- OUTSIDE RECORDS SUMMARY | 2017-08-18 10:26 | XMS REPORT ---
Author Author RAFAEL HERNANDEZ eClinicalWorks Address Unknown Phone Unavailable Care Team Providers Care Ross Furnace Operator Name Role Phone RAFAEL HERNANDEZ CP Unavailable Allergies, Adverse Reactions, Alerts Substance [...] 346.00 Active Problem Unspecified anemia 285.9 Active Assessment Depression F32.9 Active Assessment Vaginal itching L29.8 Active Assessment Bipolar 1 disorder, depressed, mild F31.31 Active Problem Unspecified episodic mood disorder 296.90 Active Problem Bipolar disorder, unspecified 296.80 Active Assessment Vaginal discharge N89.8 Active Problem Major depressive disorder, recurrent episode, severe, without mention of psychotic behavior 296.33 Active Problem Asthma, unspecified, unspecified status 493.90 Active Problem Scoliosis (and kyphoscoliosis), idiopathic 737.30 Active Medications Medication Code System Code Instructions Start Date End Date Status Dosage Voltaren [facility] [address]-94 1 % Transdermal 4 times a day PRN September 07, 2015 1 gm Albuterol [facility] 0 90 mcg/actuation inhale 2 puffs by Inhalation route as needed every 4-6 hours PRN for cough/wheezing/shortness of breath Lamictal [facility] [address]-36 25 MG Orally Once a day at HS May 11, 2015 1 tablets Pristiq [facility] [address]-68 50 MG Orally Once a day May 11, 2015 1 tablet Procedures Procedure Coding System Code Date TRICHOMONAS ASSAY W/OPTIC CPT-4 35820 December 01, 2015 CULTURE, BACTERIA, OTHER CPT-4 17310 December 01, 2015 VILLAVICENCIO VAG, DNA, DIR PROBE CPT-4 12422 December 01, 2015 Office Visit, Est Pt., Level 3 CPT-4 66356 December 01, 2015 Vital Signs Date/Time: December 01, 2015 Cardiac Monitoring Heart Rate 101 bpm Weight 139.8 lbs Height 64 in BMI 23.99 Index Blood Pressure Diastolic 68 mmHg Blood Pressure Systolic 120 mmHg Results No Known Results Summary Purpose eClinicalWorks Submission
--- OUTSIDE RECORDS SUMMARY | 2017-08-18 10:26 | XMS REPORT ---
Author Author XIMENA ROLDAN Organization [facility] Address [address] [place] [address] Care Team Providers Care Alternative Financing Specialist Name Role Phone XIMENA ROLDAN Unavailable PROBLEMS Type Condition ICD9-CM Code [id number] Code Onset Dates Condition Status SNOMED Code Problem Attention deficit disorder of childhood without mention of hyperactivity 314.00 Active 75396638 Problem Nondependent tobacco use disorder 305.1 Active 427524424 Problem Posttraumatic stress disorder 309.81 Active 47781834 Problem Other chronic pain G89.29 Active 36566253 Problem Anxiety F41.9 Active 54336873 Problem Bipolar disorder, unspecified 296.80 Active 35181658 Problem Unspecified episodic mood disorder 296.90 Active 876501407 Problem Major depressive disorder, recurrent episode, severe, without mention of psychotic behavior 296.33 Active 86763511 Problem Unspecified anemia 285.9 Active 037127709 Problem Unspecified contraceptive management V25.9 Active 045521567 Problem Surveillance of other previously prescribed contraceptive method V25.49 Active 876023873 Problem Unspecified hypertrophic and atrophic condition of skin 701.9 Active 703606690 Problem Enthesopathy of unspecified site 726.90 Active 57221917 Problem General counseling for initiation of other contraceptive measures V25.02 Active 621224211004985 Problem Asthma, unspecified, unspecified status 493.90 Active 54199796 Problem Scoliosis (and kyphoscoliosis), idiopathic 737.30 Active 44466943 Problem Migraine with aura, without mention of intractable migraine without mention of status migrainosus 346.00 Active 5113958 ALLERGIES No Known Allergies SOCIAL HISTORY Never Assessed PLAN OF CARE Activity Details Follow Up 4 Weeks, prn Reason:CHM back pain VITAL SIGNS Height 64 in 2016-08-19 Weight 139.8 lbs 2016-08-19 Temperature 98.4 degrees Fahrenheit 2016-08-19 Heart Rate 106 bpm 2016-08-19 Respiratory Rate 18 2016-08-19 BMI 23.99 kg/m2 2016-08-19 Blood pressure systolic 100 mmHg 2016-08-19 Blood pressure diastolic 62 mmHg 2016-08-19 MEDICATIONS Medication Instructions Dosage Frequency Start Date End Date Duration Status Depo-Provera 150 MG/ML 1 ml Active Baclofen 10 mg Orally 2 times a day 1 tablet with food or milk 12h Aug, Aug, 0 days Active RESULTS No Results PROCEDURES No Known [...]
--- OUTSIDE RECORDS SUMMARY | 2017-08-18 10:26 | XMS REPORT ---
Author Author XIMENA ROLDAN Organization [facility] Address [address] [place] [address] Care Team Providers Care Wood Type Finisher Name Role Phone XIMENA ROLDAN Unavailable PROBLEMS Type Condition ICD9-CM Code [id number] Code Onset Dates Condition Status SNOMED Code Problem Attention deficit disorder of childhood without mention of hyperactivity 314.00 Active 37997999 Problem Nondependent tobacco use disorder 305.1 Active 035771485 Problem Posttraumatic stress disorder 309.81 Active 31613228 Problem Other chronic pain G89.29 Active 21463278 Problem Anxiety F41.9 Active 28097566 Problem Bipolar disorder, unspecified 296.80 Active 14175345 Problem Unspecified episodic mood disorder 296.90 Active 758056588 Problem Major depressive disorder, recurrent episode, severe, without mention of psychotic behavior 296.33 Active 67781976 Problem Unspecified anemia 285.9 Active 578823837 Problem Unspecified contraceptive management V25.9 Active 721605701 Problem Surveillance of other previously prescribed contraceptive method V25.49 Active 132638616 Problem Unspecified hypertrophic and atrophic condition of skin 701.9 Active 163142409 Problem Enthesopathy of unspecified site 726.90 Active 92325492 Problem General counseling for initiation of other contraceptive measures V25.02 Active 015275094511478 Problem Asthma, unspecified, unspecified status 493.90 Active 55298351 Problem Scoliosis (and kyphoscoliosis), idiopathic 737.30 Active 27866183 Problem Migraine with aura, without mention of intractable migraine without mention of status migrainosus 346.00 Active 4576713 ALLERGIES Substance Reaction Event Type Date Status N.K.D.A. Unknown Non Drug Allergy May, Unknown SOCIAL HISTORY No smoking Hx information available PLAN OF CARE Activity Details Follow Up Return after 05/16 for depo, CHM irratiabilty pending labs/4 weeks Reason: VITAL SIGNS Height 64 in 2016-05-13 Weight 129.8 lbs 2016-05-13 Temperature 98.1 degrees Fahrenheit 2016-05-13 Heart Rate 90 bpm 2016-05-13 Respiratory Rate 18 2016-05-13 BMI 22.28 kg/m2 2016-05-13 Blood pressure systolic 98 mmHg 2016-05-13 Blood pressure diastolic 58 mmHg 2016-05-13 MEDICATIONS Medication Instructions Dosage Frequency Start Date End Date Duration Status Voltaren 1 % Transdermal 4 times a day PRN 1 gm Aug, Active Depo-Provera 150 MG/ML 1 ml Active RESULTS No Results PROCEDURES Procedure Date Ordered Related Diagnosis Body Site ASSAY THYROID STIM HORMONE May 13, 2016 COMPLETE CBC W/AUTO DIFF WBC May 13, 2016 FLUARIX QUAD P-FREE 3 AND UP .50 2015May 13, 2016 VENIPUNCT, ROUTINE* May 13, 2016 Office Visit, Est Pt., Level 4 May 13, 2016 SINGLE IMMUNIZATION ADMIN May 13, 2016 IMMUNIZATIONS Vaccine Route Administration Date Status FLUARIX QUAD P-FREE 3 AND UP .50 2015 IM Intramuscular May 13, 2016 Administered
--- OUTSIDE RECORDS SUMMARY | 2017-08-18 10:26 | XMS REPORT ---
Author Author RAFAEL HERNANDEZ eClinicalWorks Address Unknown Phone Unavailable Care Team Providers Care Cabinet Finisher Name Role Phone RAFAEL HERNANDEZ Unavailable Allergies, [...] Active Problem Tension headache 307.81 Active Assessment Bipolar 1 disorder, depressed, mild F31.31 Active Problem Acute sinusitis, unspecified 461.9 Active Problem Attention deficit disorder of childhood [...] Instructions Start Date End Date Status Dosage Albuterol NDC 0 90 mcg/actuation inhale 2 puffs by Inhalation route as needed every 4-6 hours PRN for cough/wheezing/shortness of breath [place] [address]-72 5-325 MG Orally every 6 hrs PRN Must last 60 days October 03, 2014 1 [place] [address]-76 25 MG Orally Once a day at HS May 11, 2015 [address] [place] [address]-99 25 MG Orally Once a day May 11, 2015 2 tablets (1 tab daily first 7 days then increase to 2 tabs daily) Procedures Procedure Coding System Code Date Office Visit, Est Pt., Level 4 CPT-4 68174 May 11, 2015 Vital Signs Date/Time: May 11, 2015 Temperature 98.3 F Weight 152.4 lbs Height 64 in BMI 26.16 Index Blood Pressure Diastolic 76 mmHg Blood Pressure Systolic 100 mmHg Cardiac Monitoring Heart Rate 88 bpm BMIPercentile 84.53 % Wt Percentile 82.65 % Results No Known Results Summary Purpose eClinicalWorks Submission
--- OUTSIDE RECORDS SUMMARY | 2017-08-18 10:27 | XMS REPORT ---
Author Author XIMENA ROLDAN Organization [facility] Address [address] [place] [address] Care Team Providers Care Photo Editor Name Role Phone XIMENA ROLDAN Unavailable PROBLEMS Type Condition ICD9-CM Code [id number] Code Onset Dates Condition Status SNOMED Code Problem Attention deficit disorder of childhood without mention of hyperactivity 314.00 Active 51919021 Problem Nondependent tobacco use disorder 305.1 Active 196140257 Problem Posttraumatic stress disorder 309.81 Active 46894037 Problem Other chronic pain G89.29 Active 53150337 Problem Anxiety F41.9 Active 23699022 Problem Bipolar disorder, unspecified 296.80 Active 51640232 Problem Unspecified episodic mood disorder 296.90 Active 752388944 Problem Major depressive disorder, recurrent episode, severe, without mention of psychotic behavior 296.33 Active 89300727 Problem Unspecified anemia 285.9 Active 202530067 Problem Unspecified contraceptive management V25.9 Active 485391695 Problem Surveillance of other previously prescribed contraceptive method V25.49 Active 953300567 Problem Unspecified hypertrophic and atrophic condition of skin 701.9 Active 139469022 Problem Enthesopathy of unspecified site 726.90 Active 67598450 Problem General counseling for initiation of other contraceptive measures V25.02 Active 372710268287384 Problem Asthma, unspecified, unspecified status 493.90 Active 60569171 Problem Scoliosis (and kyphoscoliosis), idiopathic 737.30 Active 61670800 Problem Migraine with aura, without mention of intractable migraine without mention of status migrainosus 346.00 Active 2775902 ALLERGIES No Known Allergies SOCIAL HISTORY Never Assessed PLAN OF CARE Activity Details Follow Up prn, 2 Weeks,pending referral Reason:rash VITAL SIGNS Height 64 in 2016-11-12 Weight 142.8 lbs 2016-11-12 Temperature 98.4 degrees Fahrenheit 2016-11-12 Heart Rate 88 bpm 2016-11-12 Respiratory Rate 16 2016-11-12 BMI 24.51 kg/m2 2016-11-12 Blood pressure systolic 110 mmHg 2016-11-12 Blood pressure diastolic 70 mmHg 2016-11-12 MEDICATIONS Medication Instructions Dosage Frequency Start Date End Date Duration Status Depo-Provera 150 MG/ML 1 ml Active RESULTS No Results PROCEDURES No Known [...]
--- OUTSIDE RECORDS SUMMARY | 2017-08-18 10:31 | XMS REPORT | Continuity of Care Document ---
Author Author [facility] Organization [facility] Address Unknown Phone Unavailable Allergies Active Description Code Type Severity Reaction Onset Reported/Identified Relationship to Patient Clinical Status Yes No Known Drug Allergies [id number] Drug Allergy Unknown N/A 12/28/2012 Medications There is no data. Problems Date Dx Coded Attending Type Code Diagnosis Diagnosed By 12/10/2007 SURINDER CONKLIN, KEELY Bucio 380.10 OTITIS EXTERNA UNSPECIFIED 12/10/2007 SANDEE FOURNIER APRN 380.10 OTITIS EXTERNA UNSPECIFIED 12/10/2007 380.10 OTITIS EXTERNA UNSPECIFIED 12/10/2007 380.10 OTITIS EXTERNA UNSPECIFIED 12/10/2007 380.10 OTITIS EXTERNA UNSPECIFIED 12/10/2007 JORDAN VALDIVIA DO 380.10 OTITIS EXTERNA UNSPECIFIED 12/10/2007 380.10 OTITIS EXTERNA UNSPECIFIED 12/10/2007 380.10 OTITIS EXTERNA UNSPECIFIED 12/10/2007 380.10 OTITIS EXTERNA UNSPECIFIED 12/10/2007 380.10 OTITIS EXTERNA UNSPECIFIED 12/10/2007 380.10 OTITIS EXTERNA UNSPECIFIED 12/10/2007 380.10 OTITIS EXTERNA UNSPECIFIED 12/10/2007 SANDEE FOURNIER APRN 380.10 OTITIS EXTERNA UNSPECIFIED 12/10/2007 KEELY CADENA PHD 380.10 OTITIS EXTERNA UNSPECIFIED 12/10/2007 JORDAN VALDIVIA DO 380.10 OTITIS EXTERNA UNSPECIFIED 12/10/2007 KEELY CADENA PHD 380.10 OTITIS EXTERNA UNSPECIFIED 12/10/2007 SURINDER CONKLIN, KEELY Bucio 380.10 OTITIS EXTERNA UNSPECIFIED 12/10/2007 JORDAN VALDIVIA DO 380.10 OTITIS EXTERNA UNSPECIFIED 12/10/2007 JORDAN VALDIVIA DO 380.10 OTITIS EXTERNA UNSPECIFIED 12/10/2007 RAFAEL HERNANDEZ APRN 380.10 OTITIS EXTERNA UNSPECIFIED 12/10/2007 VALDIVIA DO, JORDAN K 380.10 OTITIS EXTERNA UNSPECIFIED 12/10/2007 VALDIVIA DO, JORDAN K 380.10 OTITIS EXTERNA UNSPECIFIED 12/10/2007 JASON GARCIA, JONATHAN 380.10 OTITIS EXTERNA UNSPECIFIED 12/10/2007 RAFAEL HERNANDEZ APRN 380.10 OTITIS EXTERNA UNSPECIFIED 12/10/2007 SANDEE FOURNIER APRN 380.10 OTITIS EXTERNA UNSPECIFIED 12/10/2007 BERYL DE PAZ, DORITA Bucio 380.10 OTITIS EXTERNA UNSPECIFIED 12/10/2007 VALDIVIA DO, JORDAN K 380.10 OTITIS EXTERNA UNSPECIFIED 12/10/2007 DAVID DE PAZ, RAFAEL E 380.10 OTITIS EXTERNA UNSPECIFIED 12/10/2007 VALDIVIA DO, JORDAN K 380.10 OTITIS EXTERNA UNSPECIFIED 12/10/2007 MAME REBOLLEDO APRN 380.10 OTITIS EXTERNA UNSPECIFIED 12/10/2007 VALDIVIA DO, JORDAN K 380.10 OTITIS EXTERNA UNSPECIFIED 12/10/2007 VALDIVIA DO, JORDAN K 380.10 OTITIS EXTERNA UNSPECIFIED 12/10/2007 VALDIVIA DO, JORDAN K 380.10 OTITIS EXTERNA UNSPECIFIED 12/10/2007 DAVID DE PAZ, RAFAEL E 380.10 OTITIS EXTERNA UNSPECIFIED 12/10/2007 VALDIVIA DO, JORDAN K 380.10 OTITIS EXTERNA UNSPECIFIED 12/10/2007 SANDEE FOURNIER APRN 380.10 OTITIS EXTERNA UNSPECIFIED 12/10/2007 VALDIVIA DO, JORDAN K 380.10 OTITIS EXTERNA UNSPECIFIED 01/05/2008 SURINDER CONKLIN, KEELY Bucio V06.1 DTP/Dtap, RZLCYAGELA-PUGVPCK-KWFXVLYUF COMBINED 01/05/2008 SANDEE FOURNIER APRN V06.1 DTP/Dtap, JQRRFCVXBZ-NYZIWQK-VUVBDQEWO COMBINED 01/05/2008 V06.1 DTP/Dtap, PZYMMDIJSF-QCLSKQI-HSHDMUTBQ COMBINED 01/05/2008 V06.1 DTP/Dtap, QTYEVJWLNP-GAFZSSQ-MILKELWDX COMBINED 01/05/2008 V06.1 DTP/Dtap, VUMIZTTKEU-ONPLYCF-PTBPGDRQW COMBINED 01/05/2008 JORDAN VALDIVIA DO V06.1 DTP/Dtap, XEKYTDNBVH-ZTPCJHW-QIIGBPESP COMBINED 01/05/2008 V06.1 DTP/Dtap, FLDLAQMTFB-WPQFFDH-LJQELYGWU COMBINED 01/05/2008 V06.1 DTP/Dtap, KXOHFBTWTQ-ZFCOQEN-PNIVDCGHG COMBINED 01/05/2008 V06.1 DTP/Dtap, XITFIIDSCJ-VUJISWO-OPCATZQAP COMBINED 01/05/2008 V06.1 DTP/Dtap, ROHRZNIQHM-JQQZBFK-QGAKQSYIB COMBINED 01/05/2008 V06.1 DTP/Dtap, WUMKUZRCGO-TIMABJP-WEKPKTVPP COMBINED 01/05/2008 V06.1 DTP/Dtap, AAFKIVTZRH-CHLDBYV-STCWRBBCJ COMBINED 01/05/2008 SANDEE FOURNIER APRN V06.1 DTP/Dtap, CQEWQQCPJJ-VFXDBRI-IHIZTWGVS COMBINED 01/05/2008 SURINDER CONKLIN, KEELY Bucio V06.1 DTP/Dtap, YWICPOIIII-NGNJPBF-ZNXACZSXL COMBINED 01/05/2008 JORDAN VALDIVIA DO V06.1 DTP/Dtap, QYNOEQKLBH-ICJZTQO-HPEQMEGPP COMBINED 01/05/2008 SURINDER CONKLIN, KEELY Bucio V06.1 DTP/Dtap, PCBOVIWKAT-MGNMISL-NLVPYRIJN COMBINED 01/05/2008 SURINDER CONKLIN, KEELY Bucio V06.1 DTP/Dtap, HVVGLWNHEO-ZAPUSHO-VUQUAUZSI COMBINED 01/05/2008 JORDAN VALDIVIA DO V06.1 DTP/Dtap, VGLMTWMJNC-AUUMMFN-CTTCXAILQ COMBINED 01/05/2008 JORDAN VALDIVIA DO K V06.1 DTP/Dtap, RQXKSKJRAR-TRXJEIV-YCWHTJNKC COMBINED 01/05/2008 RAFAEL HERNANDEZ APRN V06.1 DTP/Dtap, QPLOBLRZQR-DXVCYVJ-WRBBGXVXH COMBINED 01/05/2008 JORDAN VALDIVIA DO V06.1 DTP/Dtap, XGBDHXZWZS-SNTBQHG-NKWSSCJWU COMBINED 01/05/2008 JORDAN VALDIVIA DO V06.1 DTP/Dtap, FYXOHLXHYC-OEBTLWT-QWLZXZPYR COMBINED 01/05/2008 JONATHAN GOMEZ MD V06.1 DTP/Dtap, JNOMGFERJS-BGHOHAW-PBGGOHLUT COMBINED 01/05/2008 RAFAEL HERNANDEZ APRN V06.1 DTP/Dtap, QRUQMDOLXK-GTVNXKA-FQMLLFDZV COMBINED 01/05/2008 SANDEE FOURNIER APRN V06.1 DTP/Dtap, OJMXBDEPXD-MSKKNCC-ENWNDAMSH COMBINED 01/05/2008 DORITA CORDOBA APRN V06.1 DTP/Dtap, YQSUWGSPIP-BOOPSDK-FVEANPWIN COMBINED 01/05/2008 JORDAN VALDIVIA DO K V06.1 DTP/Dtap, FARWIJQICE-QUJMJCX-XASKLILOU COMBINED 01/05/2008 RAFAEL HERNANDEZ APRN V06.1 DTP/Dtap, YEFUIYGBTA-CLAIMUD-KVARBMIQO COMBINED 01/05/2008 JORDAN VALDIVIA DO K V06.1 DTP/Dtap, OFECNCGPWG-PFVCACS-GFRAGZWKM COMBINED 01/05/2008 MAME REBOLLEDO APRN V06.1 DTP/Dtap, QTVEHMCUUL-KAVEXJJ-KJFJDRGBB COMBINED 01/05/2008 JORDAN VALDIVIA DO K V06.1 DTP/DTAP, SDGALDWLFO-PYSTRHE-OKDCVZSHQ COMBINED 01/05/2008 JORDAN VALDIVIA DO K V06.1 DTP/DTAP, BNHCOYDICT-NOGACGS-COLNYJLUP COMBINED 01/05/2008 JORDAN VALDIVIA DO K V06.1 DTP/DTAP, AFUNSPWTYP-IYXGDBZ-AOWPZWCZM COMBINED 01/05/2008 RAFAEL HERNANDEZ APRN V06.1 DTP/DTAP, XQIBSDZQTV-CGVSPXQ-IFKTFTRYW COMBINED 01/05/2008 JORDAN VALDIVIA DO K V06.1 DTP/DTAP, KYAPJUAFFT-SJGLDGP-LASQFGZNE COMBINED 01/05/2008 SANDEE FOURNIER APRN V06.1 DTP/DTAP, HXFTVFBXVL-LIIUWIT-AMAJJCUDY COMBINED 01/05/2008 JORDAN VALDIVIA DO V06.1 DTP/DTAP, EZWEGYMBWL-AKWOEHL-TTYEGARGM COMBINED 01/25/2008 SURINDER CONKLIN, KEELY Bucio V70.3 OTHER GENERAL MEDICAL EXAMINATION FOR ADMINISTRATIVE PURPOSES 01/25/2008 SANDEE FOURNIER APRN V70.3 OTHER GENERAL MEDICAL EXAMINATION FOR ADMINISTRATIVE PURPOSES 01/25/2008 V70.3 OTHER GENERAL MEDICAL EXAMINATION FOR ADMINISTRATIVE PURPOSES 01/25/2008 V70.3 OTHER GENERAL MEDICAL EXAMINATION FOR ADMINISTRATIVE PURPOSES 01/25/2008 V70.3 OTHER GENERAL MEDICAL EXAMINATION FOR ADMINISTRATIVE PURPOSES 01/25/2008 JORDAN VALDIVIA DO V70.3 OTHER GENERAL MEDICAL EXAMINATION FOR ADMINISTRATIVE PURPOSES 01/25/2008 V70.3 OTHER GENERAL MEDICAL EXAMINATION FOR ADMINISTRATIVE PURPOSES 01/25/2008 V70.3 OTHER GENERAL MEDICAL EXAMINATION FOR ADMINISTRATIVE PURPOSES 01/25/2008 V70.3 OTHER GENERAL MEDICAL EXAMINATION FOR ADMINISTRATIVE PURPOSES 01/25/2008 V70.3 OTHER GENERAL MEDICAL EXAMINATION FOR ADMINISTRATIVE PURPOSES 01/25/2008 V70.3 OTHER GENERAL MEDICAL EXAMINATION FOR ADMINISTRATIVE PURPOSES 01/25/2008 V70.3 OTHER GENERAL MEDICAL EXAMINATION FOR ADMINISTRATIVE PURPOSES 01/25/2008 SANDEE FOURNIER APRN V70.3 OTHER GENERAL MEDICAL EXAMINATION FOR ADMINISTRATIVE PURPOSES 01/25/2008 SURINDER CONKLIN, KEELY Bucio V70.3 OTHER GENERAL MEDICAL EXAMINATION FOR ADMINISTRATIVE PURPOSES 01/25/2008 SHEA LUIS JORDAN K V70.3 OTHER GENERAL MEDICAL EXAMINATION FOR ADMINISTRATIVE PURPOSES 01/25/2008 SURINDER CONKLIN, KEELY Bucio V70.3 OTHER GENERAL MEDICAL EXAMINATION FOR ADMINISTRATIVE PURPOSES 01/25/2008 KEELY CADENA PHD V70.3 OTHER GENERAL MEDICAL EXAMINATION FOR ADMINISTRATIVE PURPOSES 01/25/2008 SHEA LUIS JORDNA K V70.3 OTHER GENERAL MEDICAL EXAMINATION FOR ADMINISTRATIVE PURPOSES 01/25/2008 SHEA LUIS JORDAN K V70.3 OTHER GENERAL MEDICAL EXAMINATION FOR ADMINISTRATIVE PURPOSES 01/25/2008 RAFAEL HERNANDEZ APRN V70.3 OTHER GENERAL MEDICAL EXAMINATION FOR ADMINISTRATIVE PURPOSES 01/25/2008 SHEA LUIS JORDAN K V70.3 OTHER GENERAL MEDICAL EXAMINATION FOR ADMINISTRATIVE PURPOSES 01/25/2008 SHEA LUIS JORDAN K V70.3 OTHER GENERAL MEDICAL EXAMINATION FOR ADMINISTRATIVE PURPOSES 01/25/2008 JONATHAN GOMEZ MD V70.3 OTHER GENERAL MEDICAL EXAMINATION FOR ADMINISTRATIVE PURPOSES 01/25/2008 RAFAEL HERNANDEZ APRN V70.3 OTHER GENERAL MEDICAL EXAMINATION FOR ADMINISTRATIVE PURPOSES 01/25/2008 SANDEE FOURNIER APRN V70.3 OTHER GENERAL MEDICAL EXAMINATION FOR ADMINISTRATIVE PURPOSES 01/25/2008 DORITA CORDOBA APRN V70.3 OTHER GENERAL MEDICAL EXAMINATION FOR ADMINISTRATIVE PURPOSES 01/25/2008 SHEA LUIS JORDAN K V70.3 OTHER GENERAL MEDICAL EXAMINATION FOR ADMINISTRATIVE PURPOSES 01/25/2008 RAFAEL HERNANDEZ APRN V70.3 OTHER GENERAL MEDICAL EXAMINATION FOR ADMINISTRATIVE PURPOSES 01/25/2008 SHEA LUIS JORDAN K V70.3 OTHER GENERAL MEDICAL EXAMINATION FOR ADMINISTRATIVE PURPOSES 01/25/2008 MAME REBOLLEDO APRN V70.3 OTHER GENERAL MEDICAL EXAMINATION FOR ADMINISTRATIVE PURPOSES 01/25/2008 SHEA LUIS JORDAN K V70.3 OTHER GENERAL MEDICAL EXAMINATION FOR ADMINISTRATIVE PURPOSES 01/25/2008 JORDAN VALDIVIA DO V70.3 OTHER GENERAL MEDICAL EXAMINATION FOR ADMINISTRATIVE PURPOSES 01/25/2008 JORDAN VALDIVIA DO V70.3 OTHER GENERAL MEDICAL EXAMINATION FOR ADMINISTRATIVE PURPOSES 01/25/2008 RAFAEL HERNANDEZ APRN V70.3 OTHER GENERAL MEDICAL EXAMINATION FOR ADMINISTRATIVE PURPOSES 01/25/2008 JORDAN VALDIVIA DO V70.3 OTHER GENERAL MEDICAL EXAMINATION FOR ADMINISTRATIVE PURPOSES 01/25/2008 SANDEE FOURNIER APRN V70.3 OTHER GENERAL MEDICAL EXAMINATION FOR ADMINISTRATIVE PURPOSES 01/25/2008 JORDAN VALDIVIA DO V70.3 OTHER GENERAL MEDICAL EXAMINATION FOR ADMINISTRATIVE PURPOSES 07/21/2008 SURINDER CONKLIN, KEELY Bucio 528.9 ORAL MUCOCELE 07/21/2008 KEELY CADENA PHD 780.79 feelings of weakness 07/21/2008 KEELY CADENA PHD 784.0 headache 07/21/2008 KEELY CADENA PHD 786.2 cough 07/21/2008 SANDEE FOURNIER APRN 528.9 ORAL MUCOCELE 07/21/2008 SANDEE FOURNIER APRN 780.79 feelings of weakness 07/21/2008 SANDEE FOURNIER APRN 784.0 headache 07/21/2008 SANDEE FOURNIER APRN 786.2 cough 07/21/2008 528.9 ORAL MUCOCELE 07/21/2008 780.79 feelings of weakness 07/21/2008 784.0 headache 07/21/2008 786.2 cough 07/21/2008 528.9 ORAL MUCOCELE 07/21/2008 780.79 feelings of weakness 07/21/2008 784.0 headache 07/21/2008 786.2 cough 07/21/2008 528.9 ORAL MUCOCELE 07/21/2008 780.79 feelings of weakness 07/21/2008 784.0 headache 07/21/2008 786.2 cough 07/21/2008 JORDAN VALDIVIA DO 528.9 ORAL MUCOCELE 07/21/2008 JORDAN VALDIVIA DO 780.79 feelings of weakness 07/21/2008 JORDAN VALDIVIA DO 784.0 headache 07/21/2008 JORDAN VALDIVIA DO 786.2 cough 07/21/2008 528.9 ORAL MUCOCELE 07/21/2008 780.79 feelings of weakness 07/21/2008 784.0 headache 07/21/2008 786.2 cough 07/21/2008 528.9 ORAL MUCOCELE 07/21/2008 780.79 feelings of weakness 07/21/2008 784.0 headache 07/21/2008 786.2 cough 07/21/2008 528.9 ORAL MUCOCELE 07/21/2008 780.79 feelings of weakness 07/21/2008 784.0 headache 07/21/2008 786.2 cough 07/21/2008 528.9 ORAL MUCOCELE 07/21/2008 780.79 feelings of weakness 07/21/2008 784.0 headache 07/21/2008 786.2 cough 07/21/2008 528.9 ORAL MUCOCELE 07/21/2008 780.79 feelings of weakness 07/21/2008 784.0 headache 07/21/2008 786.2 cough 07/21/2008 528.9 ORAL MUCOCELE 07/21/2008 780.79 feelings of weakness 07/21/2008 784.0 headache 07/21/2008 786.2 cough 07/21/2008 SANDEE FOURNIER APRN 528.9 ORAL MUCOCELE 07/21/2008 SANDEE FOURNIER APRN 780.79 feelings of weakness 07/21/2008 SANDEE FOURNIER APRN 784.0 headache 07/21/2008 SANDEE FOURNIER APRN 786.2 cough 07/21/2008 KEELY CADENA PHD 528.9 ORAL MUCOCELE 07/21/2008 KEELY CADENA PHD 780.79 feelings of weakness 07/21/2008 KEELY CADENA PHD 784.0 headache 07/21/2008 KEELY CADENA PHD 786.2 cough 07/21/2008 VALDIVIA DO, JORDAN K 528.9 ORAL MUCOCELE 07/21/2008 VALDIVIA DO, JORDAN K 780.79 feelings of weakness 07/21/2008 VALDIVIA DO, JORDAN K 784.0 headache 07/21/2008 VALDIVIA DO, JORDAN K 786.2 cough 07/21/2008 KEELY CADENA PHD 528.9 ORAL MUCOCELE 07/21/2008 KEELY CADENA PHD 780.79 feelings of weakness 07/21/2008 KEELY CADENA PHD 784.0 headache 07/21/2008 SURINDER PHD, KEELY A 786.2 cough 07/21/2008 SURINDER PHD, KEELY A 528.9 ORAL MUCOCELE 07/21/2008 SURINDER PHD, KEELY Bucio 780.79 feelings of weakness 07/21/2008 SURINDER PHD, KEELY A 784.0 headache 07/21/2008 SURINDER PHD, KEELY Bucio 786.2 cough 07/21/2008 VALDIVIA DO, JORDAN K 528.9 ORAL MUCOCELE 07/21/2008 VALDIVIA DO, JORDAN K 780.79 feelings of weakness 07/21/2008 VALDIVIA DO, JORDAN K 784.0 headache 07/21/2008 VALDIVIA DO, JORDAN K 786.2 cough 07/21/2008 VALDIVIA DO, JORDAN K 528.9 ORAL MUCOCELE 07/21/2008 VALDIVIA DO, JORDAN K 780.79 feelings of weakness 07/21/2008 VALDIVIA DO, JORDAN K 784.0 headache 07/21/2008 VALDIVIA DO, JORDAN K 786.2 cough 07/21/2008 DAVID DE PAZ RAFAEL E 528.9 ORAL MUCOCELE 07/21/2008 DAVID DE PAZ RAFAEL E 780.79 feelings of weakness 07/21/2008 MONICA HERNANDEZ APRNSIE E 784.0 headache 07/21/2008 DAVID DE PAZ RAFAEL E 786.2 cough 07/21/2008 VALDIVIA DO, JORDAN K 528.9 ORAL MUCOCELE 07/21/2008 VALDIVIA DO, JORDAN K 780.79 feelings of weakness 07/21/2008 VALDIVIA DO, JORDAN K 784.0 headache 07/21/2008 VALDIVIA DO, JORDAN K 786.2 cough 07/21/2008 VALDIVIA DO, JORDAN K 528.9 ORAL MUCOCELE 07/21/2008 VALDIVIA DO, JORDAN K 780.79 feelings of weakness 07/21/2008 VALDIVIA DO, JORDAN K 784.0 headache 07/21/2008 VALDIVIA DO, JORDAN K 786.2 cough 07/21/2008 JONATHAN GOMEZ MD 528.9 ORAL MUCOCELE 07/21/2008 JONATHAN GOMEZ MD 780.79 feelings of weakness 07/21/2008 JONATHAN GOMEZ MD 784.0 headache 07/21/2008 JONATHAN GOMEZ MD 786.2 cough 07/21/[address] [facility] [facility]N E 528.9 ORAL MUCOCELE 07/21/2008 LUKERAFAEL CODY APRN 780.79 feelings of weakness 07/21/2008 LUKERAFAEL CODY APRN E 784.0 headache 07/21/2008 LUKERAFAEL CODY APRN 786.2 cough 07/21/2008 FOURNIERSANDEE Cruz APRN R 528.9 ORAL MUCOCELE 07/21/2008 FOURNIERSANDEE Cruz APRN 780.79 feelings of weakness 07/21/2008 FOURNIERSANDEE Cruz APRN R 784.0 headache 07/21/2008 FOURNIERSANDEE Cruz APRN 786.2 cough 07/21/2008 BERYLLISANDRO Estrada APRNIDI A 528.9 ORAL MUCOCELE 07/21/2008 BERYLSean DE PAZ DORITA A 780.79 feelings of weakness 07/21/2008 BERYLSean DE PAZ DORITA A 784.0 headache 07/21/2008 BERYLSean DE PAZ DORITA A 786.2 cough 07/21/2008 VALDIVIA DO, JORDAN K 528.9 ORAL MUCOCELE 07/21/2008 VALDIVIA DO, JORDAN K 780.79 feelings of weakness 07/21/2008 VALDIVIA DO, JORDAN K 784.0 headache 07/21/2008 VALDIVIA DO, JORDAN K 786.2 cough 07/21/[address] [address] [facility] APRN E 528.9 ORAL MUCOCELE 07/21/[address] [address] [facility] APRN 780.79 feelings of weakness 07/21/2008 LUKERAFAEL CODY APRN E 784.0 headache 07/21/[address] [address] [address] [facility] APRN E 786.2 cough 07/21/2008 VALDIVIA DO, JORDAN K 528.9 ORAL MUCOCELE 07/21/2008 VALDIVIA DO, JORDAN K 780.79 feelings of weakness 07/21/2008 VALDIVIA DO, JORDAN K 784.0 headache 07/21/2008 VALDIVIA DO, JORDAN K 786.2 cough 07/21/2008 MAME REBOLLEDO APRN R 528.9 ORAL MUCOCELE 07/21/2008 MAME REBOLLEDO APRN R 780.79 feelings of weakness 07/21/2008 MAME REBOLLEDO APRN R 784.0 headache 07/21/2008 MAME REBOLLEDO APRN R 786.2 cough 07/21/2008 VALDIVIA DO, JORDAN K 528.9 ORAL MUCOCELE 07/21/2008 VALDIVIA DO, JORDAN K 780.79 FEELINGS OF WEAKNESS 07/21/2008 VALDIVAI DO, JORDAN K 784.0 HEADACHE 07/21/2008 VALDIVIA DO, JORDAN K 786.2 COUGH 07/21/2008 VALDIVIA DO, JORDAN K 528.9 ORAL MUCOCELE 07/21/2008 VALDIVIA DO, JORDAN K 780.79 FEELINGS OF WEAKNESS 07/21/2008 VALDIVIA DO, JORDAN K 784.0 HEADACHE 07/21/2008 VALDIVIA DO, JORDAN K 786.2 COUGH 07/21/2008 VALDIVIA DO, JORDAN K 528.9 ORAL MUCOCELE 07/21/2008 VALDIVIA DO, JORDAN K 780.79 FEELINGS OF WEAKNESS 07/21/2008 VALDIVIA DO, JORDAN K 784.0 HEADACHE 07/21/2008 VALDIVIA DO, JORDAN K 786.2 COUGH 07/21/2008 HELCLOVIS DE PAZ RAFAEL E 528.9 ORAL MUCOCELE 07/21/2008 HELCLOVIS DE PAZ RAFAEL E 780.79 FEELINGS OF WEAKNESS 07/21/2008 DAVID DE PAZ RAFAEL E 784.0 HEADACHE 07/21/2008 HELCLOVIS DE PAZ RAFAEL E 786.2 COUGH 07/21/2008 VALDIVIA DO, JORDAN K 528.9 ORAL MUCOCELE 07/21/2008 VALDIVIA DO, JORDAN K 780.79 FEELINGS OF WEAKNESS 07/21/2008 VALDIVIA DO, JORDAN K 784.0 HEADACHE 07/21/2008 VALDIVIA DO, JORDAN K 786.2 COUGH 07/21/2008 FOURNIERSANDEE HIRSCH APRN R 528.9 ORAL MUCOCELE 07/21/2008 SANDEE FOURNIER APRN 780.79 FEELINGS OF WEAKNESS 07/21/2008 SANDEE FOURNIER APRN R 784.0 HEADACHE 07/21/2008 SANDEE FOURNIER APRN R 786.2 COUGH 07/21/2008 VALDIVIA DO, JORDAN K 528.9 ORAL MUCOCELE 07/21/2008 VALDIVIA DO, JORDAN K 780.79 FEELINGS OF WEAKNESS 07/21/2008 VALDIVIA DO, JORDAN K 784.0 HEADACHE 07/21/2008 VALDIVIA DO, JORDAN K 786.2 COUGH 01/18/2009 SURINDER PHD, KEELY Bucio V70.4 EXAMINATION FOR MEDICOLEGAL REASONS 01/18/2009 SANDEE FOURNIER APRN V70.4 EXAMINATION FOR MEDICOLEGAL REASONS 01/18/2009 V70.4 EXAMINATION FOR MEDICOLEGAL REASONS 01/18/2009 V70.4 EXAMINATION FOR MEDICOLEGAL REASONS 01/18/2009 V70.4 EXAMINATION FOR MEDICOLEGAL REASONS 01/18/2009 VALDIVIA DO, JORDAN K V70.4 EXAMINATION FOR MEDICOLEGAL REASONS 01/18/2009 V70.4 EXAMINATION FOR MEDICOLEGAL REASONS 01/18/2009 V70.4 EXAMINATION FOR MEDICOLEGAL REASONS 01/18/2009 V70.4 EXAMINATION FOR MEDICOLEGAL REASONS 01/18/2009 V70.4 EXAMINATION FOR MEDICOLEGAL REASONS 01/18/2009 V70.4 EXAMINATION FOR MEDICOLEGAL REASONS 01/18/2009 V70.4 EXAMINATION FOR MEDICOLEGAL REASONS 01/18/2009 SANDEE FOURNIER APRN V70.4 EXAMINATION FOR MEDICOLEGAL REASONS 01/18/2009 SURINDER PHD, KEELY Bucio V70.4 EXAMINATION FOR MEDICOLEGAL REASONS 01/18/2009 VALDIVIA DO, JORDAN K V70.4 EXAMINATION FOR MEDICOLEGAL REASONS 01/18/2009 SURINDER PHD, KEELY Bucio V70.4 EXAMINATION FOR MEDICOLEGAL REASONS 01/18/2009 SURINDER PHD, KEELY Bucio V70.4 EXAMINATION FOR MEDICOLEGAL REASONS 01/18/2009 VALDIVIA DO, JORDAN K V70.4 EXAMINATION FOR MEDICOLEGAL REASONS 01/18/2009 VALDIVIA DO, JORDAN K V70.4 EXAMINATION FOR MEDICOLEGAL REASONS 01/18/2009 RAFAEL HERNANDEZ APRN E V70.4 EXAMINATION FOR MEDICOLEGAL REASONS 01/18/2009 VALDIVIA DO, JORDAN K V70.4 EXAMINATION FOR MEDICOLEGAL REASONS 01/18/2009 VALDIVIA DO, JORDAN K V70.4 EXAMINATION FOR MEDICOLEGAL REASONS 01/18/2009 JONATHAN GOMEZ MD V70.4 EXAMINATION FOR MEDICOLEGAL REASONS 01/18/2009 RAFAEL HERNANDEZ APRN E V70.4 EXAMINATION FOR MEDICOLEGAL REASONS 01/18/2009 SANDEE FOURNIER APRN V70.4 EXAMINATION FOR MEDICOLEGAL REASONS 01/18/2009 BERYLTED DE PAZ, DORITA A V70.4 EXAMINATION FOR MEDICOLEGAL REASONS 01/18/2009 VALDIVIA DO, JORDAN K V70.4 EXAMINATION FOR MEDICOLEGAL REASONS 01/18/2009 LUKECLOVIS DE PAZ, RAFAEL E V70.4 EXAMINATION FOR MEDICOLEGAL REASONS 01/18/2009 VALDIVIA DO, JORDAN K V70.4 EXAMINATION FOR MEDICOLEGAL REASONS 01/18/2009 MAME REBOLLEDO APRN R V70.4 EXAMINATION FOR MEDICOLEGAL REASONS 01/18/2009 VALDIVIA DO, JORDAN K V70.4 EXAMINATION FOR MEDICOLEGAL REASONS 01/18/2009 VALDIVIA DO, JORDAN K V70.4 EXAMINATION FOR MEDICOLEGAL REASONS 01/18/2009 VALDIVIA DO, JORDAN K V70.4 EXAMINATION FOR MEDICOLEGAL REASONS 01/18/2009 DAVID DE PAZ, RAFAEL E V70.4 EXAMINATION FOR MEDICOLEGAL REASONS 01/18/2009 VALDIVIA DO, JORDAN K V70.4 EXAMINATION FOR MEDICOLEGAL REASONS 01/18/2009 SANDEE FOURNIER APRN V70.4 EXAMINATION FOR MEDICOLEGAL REASONS 01/18/2009 VALDIVIA DO, JORDAN K V70.4 EXAMINATION FOR MEDICOLEGAL REASONS 07/24/2009 SURINDER CONKLIN, KEELY Bucio 133.0 SCABIES 07/24/2009 SURINDER CONKLIN, KEELY Bucio 701.1 Skin Texture Hyperkeratosis 07/24/2009 SANDEE FOURNIER APRN 133.0 SCABIES 07/24/2009 SANDEE FOURNIER APRN 701.1 Skin Texture Hyperkeratosis 07/24/2009 133.0 SCABIES 07/24/2009 701.1 Skin Texture Hyperkeratosis 07/24/2009 133.0 SCABIES 07/24/2009 701.1 Skin Texture Hyperkeratosis 07/24/2009 133.0 SCABIES 07/24/2009 701.1 Skin Texture Hyperkeratosis 07/24/2009 VALDIVIA DO, JORDAN K 133.0 SCABIES 07/24/2009 VALDIVIA DO, JORDAN K 701.1 Skin Texture Hyperkeratosis 07/24/2009 133.0 SCABIES 07/24/2009 701.1 Skin Texture Hyperkeratosis 07/24/2009 133.0 SCABIES 07/24/2009 701.1 Skin Texture Hyperkeratosis 07/24/2009 133.0 SCABIES 07/24/2009 701.1 Skin Texture Hyperkeratosis 07/24/2009 133.0 SCABIES 07/24/2009 701.1 Skin Texture Hyperkeratosis 07/24/2009 133.0 SCABIES 07/24/2009 701.1 Skin Texture Hyperkeratosis 07/24/2009 133.0 SCABIES 07/24/2009 701.1 Skin Texture Hyperkeratosis 07/24/2009 FOURNIERSANDEE HIRSCH APRN 133.0 SCABIES 07/24/2009 SANDEE FOURNIER APRN 701.1 Skin Texture Hyperkeratosis 07/24/2009 SURINDER PHD, KEELY Bucio 133.0 SCABIES 07/24/2009 SURINDER PHD, KEELY Bucio 701.1 Skin Texture Hyperkeratosis 07/24/2009 VALDIVIA DO, JORDAN K 133.0 SCABIES 07/24/2009 VALDIVIA DO, JORDAN K 701.1 Skin Texture Hyperkeratosis 07/24/2009 SURINDER PHD, KEELY A 133.0 SCABIES 07/24/2009 SURINDER PHD, KEELY Bucio 701.1 Skin Texture Hyperkeratosis 07/24/2009 SURINDER CONKLIN, KEELY A 133.0 SCABIES 07/24/2009 SURINDER PHD, KEELY Bucio 701.1 Skin Texture Hyperkeratosis 07/24/2009 VALDIVIA DO, JORDAN K 133.0 SCABIES 07/24/2009 VALDIVIA DO, JORDAN K 701.1 Skin Texture Hyperkeratosis 07/24/2009 VALDIVIA DO, JORDAN K 133.0 SCABIES 07/24/2009 VALDIVIA DO, JORDAN K 701.1 Skin Texture Hyperkeratosis 07/24/2009 DAVID DE PAZ RAFAEL E 133.0 SCABIES 07/24/2009 DAVID DE PAZ RAFAEL E 701.1 Skin Texture Hyperkeratosis 07/24/2009 VALDIVIA DO, JORDAN K 133.0 SCABIES 07/24/2009 VALDIVIA DO, JORDAN K 701.1 Skin Texture Hyperkeratosis 07/24/2009 VALDIVIA DO, JORDAN K 133.0 SCABIES 07/24/2009 VALDIVIA DO, JORDAN K 701.1 Skin Texture Hyperkeratosis 07/24/2009 JONATHAN GOMEZ MD 133.0 SCABIES 07/24/2009 JONATHAN GOMEZ MD 701.1 Skin Texture Hyperkeratosis 07/24/[address] [facility] RAFAEL E 133.0 SCABIES 07/24/2009 LUKEGLO DE PAZ, RAFAEL E 701.1 Skin Texture Hyperkeratosis 07/24/2009 FOURNIERJOYCELYN ALVAREZNSANDEE R 133.0 SCABIES 07/24/2009 FOURNIER SUPERVISOR GELATIN PLANT, SANDEE R 701.1 Skin Texture Hyperkeratosis 07/24/2009 BERYL SUPERVISOR G[employer]IN PLANT, DORITA A 133.0 SCABIES 07/24/2009 BERYL SUPERVISOR GELATIN PLANT, DORITA A 701.1 Skin Texture Hyperkeratosis 07/24/2009 VALDIVIA DO, JORDAN K 133.0 SCABIES 07/24/2009 VALDIVIA DO, JORDAN K 701.1 Skin Texture Hyperkeratosis 07/24/[address] [facility] RAFAEL E 133.0 SCABIES 07/24/[address] [facility] AL[facility]N RAFAEL E 701.1 Skin Texture Hyperkeratosis 07/24/2009 VALDIVIA DO, JORDAN K 133.0 SCABIES 07/24/2009 VALDIVIA DO, JORDAN K 701.1 Skin Texture Hyperkeratosis 07/24/2009 KESHA SUPERVISOR G[employer] PLANT, MAME R 133.0 SCABIES 07/24/2009 REBOLLEDO SUPERVISOR G[employer]IN PLANT, MAME R 701.1 Skin Texture Hyperkeratosis 07/24/2009 VALDIVIA DO, JORDAN K 133.0 SCABIES 07/24/2009 VALDIVIA DO, JORDAN K 701.1 SKIN TEXTURE HYPERKERATOSIS 07/24/2009 VALDIVIA DO, JORDAN K 133.0 SCABIES 07/24/2009 VALDIVIA DO, JORDAN K 701.1 SKIN TEXTURE HYPERKERATOSIS 07/24/2009 VALDIVIA DO, JORDAN K 133.0 SCABIES 07/24/2009 VALDIVIA DO, JORDAN K 701.1 SKIN TEXTURE HYPERKERATOSIS 07/24/[address] [facility] RAFAEL E 133.0 SCABIES 07/24/[address] [facility] DE PAZ RAFAEL E 701.1 SKIN TEXTURE HYPERKERATOSIS 07/24/2009 VALDIVIA DO, JORDAN K 133.0 SCABIES 07/24/2009 VALDIVIA DO, JORDAN K 701.1 SKIN TEXTURE HYPERKERATOSIS 07/24/2009 SANDEE FOURNIER APRN 133.0 SCABIES 07/24/2009 FOURNIER SANDEE DE PAZ 701.1 SKIN TEXTURE HYPERKERATOSIS 07/24/2009 VALDIVIA DO, JORDAN K 133.0 SCABIES 07/24/2009 VALDIVIA DO, JORDAN K 701.1 SKIN TEXTURE HYPERKERATOSIS 11/10/2009 SURINDER PHD, KEELY Bucio V05.3 HEPATITIS VIRAL/ALL 11/10/2009 SURINDER PHD, KEELY Bucio V05.4 VARICELLA, CHICKENPOX 11/10/2009 SURINDER PHD, KEELY Bucio V05.8 GARDASIL 11/10/2009 SANDEE FOURNIER APRN V05.3 HEPATITIS VIRAL/ALL 11/10/2009 SANDEE FOURNIER APRN V05.4 VARICELLA, CHICKENPOX 11/10/2009 SANDEE FOURNIER APRN V05.8 GARDASIL 11/10/2009 V05.3 HEPATITIS VIRAL/ALL 11/10/2009 V05.4 VARICELLA, CHICKENPOX 11/10/2009 V05.8 GARDASIL 11/10/2009 V05.3 HEPATITIS VIRAL/ALL 11/10/2009 V05.4 VARICELLA, CHICKENPOX 11/10/2009 V05.8 GARDASIL 11/10/2009 V05.3 HEPATITIS VIRAL/ALL 11/10/2009 V05.4 VARICELLA, CHICKENPOX 11/10/2009 V05.8 GARDASIL 11/10/2009 VALDIVIA DOJORDAN K V05.3 HEPATITIS VIRAL/ALL 11/10/2009 VALDIVIA DO, JORDAN K V05.4 VARICELLA, CHICKENPOX 11/10/2009 VALDIVIA DO, JORDAN K V05.8 GARDASIL 11/10/2009 V05.3 HEPATITIS VIRAL/ALL 11/10/2009 V05.4 VARICELLA, CHICKENPOX 11/10/2009 V05.8 GARDASIL 11/10/2009 V05.3 HEPATITIS VIRAL/ALL 11/10/2009 V05.4 VARICELLA, CHICKENPOX 11/10/2009 V05.8 GARDASIL 11/10/2009 V05.3 HEPATITIS VIRAL/ALL 11/10/2009 V05.4 VARICELLA, CHICKENPOX 11/10/2009 V05.8 GARDASIL 11/10/2009 V05.3 HEPATITIS VIRAL/ALL 11/10/2009 V05.4 VARICELLA, CHICKENPOX 11/10/2009 V05.8 GARDASIL 11/10/2009 V05.3 HEPATITIS VIRAL/ALL 11/10/2009 V05.4 VARICELLA, CHICKENPOX 11/10/2009 V05.8 GARDASIL 11/10/2009 V05.3 HEPATITIS VIRAL/ALL 11/10/2009 V05.4 VARICELLA, CHICKENPOX 11/10/2009 V05.8 GARDASIL 11/10/2009 SANDEE FOURNIER APRN V05.3 HEPATITIS VIRAL/ALL 11/10/2009 SANDEE FOURNIER APRN V05.4 VARICELLA, CHICKENPOX 11/10/2009 SANDEE FOURNIER APRN V05.8 GARDASIL 11/10/2009 SURINDER PHD, KEELY Bucio V05.3 HEPATITIS VIRAL/ALL 11/10/2009 SURINDER PHD, KEELY Bucio V05.4 VARICELLA, CHICKENPOX 11/10/2009 SURINDER PHD, KEELY Bucio V05.8 GARDASIL 11/10/2009 VALDIVIA DOJORDAN V05.3 HEPATITIS VIRAL/ALL 11/10/2009 VALDIVIA DOJORDAN V05.4 VARICELLA, CHICKENPOX 11/10/2009 VALDIVIA DO, JORDAN Casanova V05.8 GARDASIL 11/10/2009 BOEDREW PHD, KEELY Bucio V05.3 HEPATITIS VIRAL/ALL 11/10/2009 BOEDREW PHD, KEELY Bucio V05.4 VARICELLA, CHICKENPOX 11/10/2009 BOEDREW PHD, KEELY Bucio V05.8 GARDASIL 11/10/2009 BOEDREW PHD, KEELY Bucio V05.3 HEPATITIS VIRAL/ALL 11/10/2009 BOEDREW PHD, KEELY Bucio V05.4 VARICELLA, CHICKENPOX 11/10/2009 BOEDREW PHD, KEELY Bucio V05.8 GARDASIL 11/10/2009 VALDIVIA DO, JORDAN Casanova V05.3 HEPATITIS VIRAL/ALL 11/10/2009 VALDIVIA DO, JORDAN Casanova V05.4 VARICELLA, CHICKENPOX 11/10/2009 VALDIVIA DO, JORDAN K V05.8 GARDASIL 11/10/2009 VALDIVIA DO, JORDAN K V05.3 HEPATITIS VIRAL/ALL 11/10/2009 VALDIVIA DO, JORDAN K V05.4 VARICELLA, CHICKENPOX 11/10/2009 VALDIVIA DO, JORDAN K V05.8 GARDASIL 11/10/2009 HELLWIG SUPERVISOR [employer], RAFAEL E V05.3 HEPATITIS VIRAL/ALL 11/10/2009 HELLWIG SUPERVISOR [employer], RAFAEL E V05.4 VARICELLA, CHICKENPOX 11/10/2009 HELLWIG SUPERVISOR [employer], RAFAEL E V05.8 GARDASIL 11/10/2009 VALDIVIA DO, JORDAN K V05.3 HEPATITIS VIRAL/ALL 11/10/2009 VALDIVIA DO, JORDAN K V05.4 VARICELLA, CHICKENPOX 11/10/2009 VALDIVIA DO, JORDAN K V05.8 GARDASIL 11/10/2009 VALDIVIA DO, JORDAN K V05.3 HEPATITIS VIRAL/ALL 11/10/2009 VALDIVIA DO, JORDAN K V05.4 VARICELLA, CHICKENPOX 11/10/2009 VALDIVIA DO, JORDAN K V05.8 GARDASIL 11/10/2009 JASON GARCIA, JONATHAN V05.3 HEPATITIS VIRAL/ALL 11/10/2009 JASON GARCIA, JONATHAN V05.4 VARICELLA, CHICKENPOX 11/10/2009 JASON GARCIA, JONATHAN V05.8 GARDASIL 11/10/2009 HELLWIG SUPERVISOR [employer], RAFAEL Castaneda V05.3 HEPATITIS VIRAL/ALL 11/10/2009 HELLWIG SUPERVISOR [employer], RAFAEL Castaneda V05.4 VARICELLA, CHICKENPOX 11/10/2009 HELLWIG SUPERVISOR [employer], RAFAEL Castaneda V05.8 GARDASIL 11/10/2009 FOURNIER SUPERVISOR GELATIN PLANTSANDEE V05.3 HEPATITIS VIRAL/ALL 11/10/2009 FOURNIER SUPERVISOR [employer], SANDEE Ramirez V05.4 VARICELLA, CHICKENPOX 11/10/2009 FOURNIER SUPERVISOR [employer], SANDEE Ramirez V05.8 GARDASIL 11/10/2009 BERYL SUPERVISOR [employer], DORITA A V05.3 HEPATITIS VIRAL/ALL 11/10/2009 BERYL SUPERVISOR [employer], DORITA A V05.4 VARICELLA, CHICKENPOX 11/10/2009 BERYL SUPERVISOR [employer], DORITA A V05.8 GARDASIL 11/10/2009 VALDIVIA DO, JORDAN K V05.3 HEPATITIS VIRAL/ALL 11/10/2009 VALDIVIA DO, JORDAN K V05.4 VARICELLA, CHICKENPOX 11/10/2009 VALDIVIA DO, JORDAN K V05.8 GARDASIL 11/10/2009 HELLWIG SUPERVISOR [employer], RAFAEL E V05.3 HEPATITIS VIRAL/ALL 11/10/2009 HELLWIG SUPERVISOR [employer], RAFAEL E V05.4 VARICELLA, CHICKENPOX 11/10/2009 HELLWIG SUPERVISOR [employer], RAFAEL E V05.8 GARDASIL 11/10/2009 VALDIVIA DO, JORDAN K V05.3 HEPATITIS VIRAL/ALL 11/10/2009 VALDIVIA DO, JORDAN K V05.4 VARICELLA, CHICKENPOX 11/10/2009 VALDIVIA DO, JORDAN K V05.8 GARDASIL 11/10/2009 REBOLLEDO SUPERVISOR [employer], MAME R V05.3 HEPATITIS VIRAL/ALL 11/10/2009 REBOLLEDO SUPERVISOR [employer], MAME R V05.4 VARICELLA, CHICKENPOX 11/10/2009 REBOLLEDO SUPERVISOR [employer], MAME R V05.8 GARDASIL 11/10/2009 VALDIVIA DO, JORDAN K V05.3 HEPATITIS VIRAL/ALL 11/10/2009 VALDIVIA DO, JORDAN K V05.4 VARICELLA, CHICKENPOX 11/10/2009 VALDIVIA DO, JORDAN K V05.8 GARDASIL 11/10/2009 VALDIVIA DO, JORDAN K V05.3 HEPATITIS VIRAL/ALL 11/10/2009 VALDIVIA DO, JORDAN K V05.4 VARICELLA, CHICKENPOX 11/10/2009 VALDIVIA DO, JORDAN K V05.8 GARDASIL 11/10/2009 VALDIVIA DO, JORDAN K V05.3 HEPATITIS VIRAL/ALL 11/10/2009 VALDIVIA DO, JORDAN K V05.4 VARICELLA, CHICKENPOX 11/10/2009 VALDIVIA DO, JORDAN K V05.8 GARDASIL 11/10/2009 HELLWIG SUPERVISOR [employer], RAFAEL E V05.3 HEPATITIS VIRAL/ALL 11/10/2009 HELLWIG SUPERVISOR [employer], RAFAEL E V05.4 VARICELLA, CHICKENPOX 11/10/2009 HELLWIG SUPERVISOR [employer], RAFAEL E V05.8 GARDASIL 11/10/2009 JORDAN VALDIVIA DO V05.3 HEPATITIS VIRAL/ALL 11/10/2009 JORDAN VALDIVIA DO V05.4 VARICELLA, CHICKENPOX 11/10/2009 JORDAN VALDIVIA DO V05.8 GARDASIL 11/10/2009 SANDEE FOURNIER APRN V05.3 HEPATITIS VIRAL/ALL 11/10/2009 SANDEE FOURNIER APRN V05.4 VARICELLA, CHICKENPOX 11/10/2009 SANDEE FOURNIER APRN V05.8 GARDASIL 11/10/2009 JORDAN VALDIVIA DO V05.3 HEPATITIS VIRAL/ALL 11/10/2009 JORDAN VALDIVIA DO V05.4 VARICELLA, CHICKENPOX 11/10/2009 JORDAN VALDIVIA DO V05.8 GARDASIL 01/10/2010 SURINDER PHD, KEELY Bucio V01.84 MENINGOCOCCAL VACCINE 01/10/2010 SANDEE FOURNIER APRN V01.84 MENINGOCOCCAL VACCINE 01/10/2010 V01.84 MENINGOCOCCAL VACCINE 01/10/2010 V01.84 MENINGOCOCCAL VACCINE 01/10/2010 V01.84 MENINGOCOCCAL VACCINE 01/10/2010 JORDAN VALDIVIA DO V01.84 MENINGOCOCCAL VACCINE 01/10/2010 V01.84 MENINGOCOCCAL VACCINE 01/10/2010 V01.84 MENINGOCOCCAL VACCINE 01/10/2010 V01.84 MENINGOCOCCAL VACCINE 01/10/2010 V01.84 MENINGOCOCCAL VACCINE 01/10/2010 V01.84 MENINGOCOCCAL VACCINE 01/10/2010 V01.84 MENINGOCOCCAL VACCINE 01/10/2010 SANDEE FOURNIER APRN V01.84 MENINGOCOCCAL VACCINE 01/10/2010 SURINDER PHD, KEELY Bucio V01.84 MENINGOCOCCAL VACCINE 01/10/2010 JORDAN VALDIVIA DO V01.84 MENINGOCOCCAL VACCINE 01/10/2010 SURINDER PHD, KEELY Bucio V01.84 MENINGOCOCCAL VACCINE 01/10/2010 SURINDER PHD, KEELY Bucio V01.84 MENINGOCOCCAL VACCINE 01/10/2010 JORDAN VALDIVIA DO V01.84 MENINGOCOCCAL VACCINE 01/10/2010 JORDAN VALDIVIA DO V01.84 MENINGOCOCCAL VACCINE 01/10/2010 RAFAEL HERNANDEZ APRN V01.84 MENINGOCOCCAL VACCINE 01/10/2010 VALDIVIA DO, JORDAN K V01.84 MENINGOCOCCAL VACCINE 01/10/2010 VALDIVIA DO, JORDAN K V01.84 MENINGOCOCCAL VACCINE 01/10/2010 JONATHAN GOMEZ MD V01.84 MENINGOCOCCAL VACCINE 01/10/2010 RAFAEL HERNANDEZ APRN E V01.84 MENINGOCOCCAL VACCINE 01/10/2010 SANDEE FOURNIER APRN V01.84 MENINGOCOCCAL VACCINE 01/10/2010 DORITA CORDOBA APRN V01.84 MENINGOCOCCAL VACCINE 01/10/2010 VALDIVIA DO, JORDAN K V01.84 MENINGOCOCCAL VACCINE 01/10/2010 RAFAEL HERNANDEZ APRN E V01.84 MENINGOCOCCAL VACCINE 01/10/2010 VALDIVIA DO, JORDAN K V01.84 MENINGOCOCCAL VACCINE 01/10/2010 MAME REBOLLEDO APRN V01.84 MENINGOCOCCAL VACCINE 01/10/2010 VALDIVIA DO, JORDAN K V01.84 MENINGOCOCCAL VACCINE 01/10/2010 VALDIVIA DO, JORDAN K V01.84 MENINGOCOCCAL VACCINE 01/10/2010 VALDIVIA DO, JORDAN K V01.84 MENINGOCOCCAL VACCINE 01/10/2010 RAFAEL HERNANDEZ APRN E V01.84 MENINGOCOCCAL VACCINE 01/10/2010 VALDIVIA DO, JORDAN K V01.84 MENINGOCOCCAL VACCINE 01/10/2010 SANDEE FOURNIER APRN V01.84 MENINGOCOCCAL VACCINE 01/10/2010 VALDIVIA DO, JORDAN K V01.84 MENINGOCOCCAL VACCINE 01/22/2010 SURINDER PHD, KEELY Bucio V70.0 NORMAL EXAMINATION 01/22/2010 SANDEE FOURNIER APRN V70.0 NORMAL EXAMINATION 01/22/2010 V70.0 NORMAL EXAMINATION 01/22/2010 V70.0 NORMAL EXAMINATION 01/22/2010 V70.0 NORMAL EXAMINATION 01/22/2010 JORDAN VALDIVIA DO V70.0 NORMAL EXAMINATION 01/22/2010 V70.0 NORMAL EXAMINATION 01/22/2010 V70.0 NORMAL EXAMINATION 01/22/2010 V70.0 NORMAL EXAMINATION 01/22/2010 V70.0 NORMAL EXAMINATION 01/22/2010 V70.0 NORMAL EXAMINATION 01/22/2010 V70.0 NORMAL EXAMINATION 01/22/2010 SANDEE FOURNIER APRN V70.0 NORMAL EXAMINATION 01/22/2010 SURINDER PHD, KEELY A V70.0 NORMAL EXAMINATION 01/22/2010 VALDIVIA DO, JORDAN K V70.0 NORMAL EXAMINATION 01/22/2010 SURINDER PHD, KEELY A V70.0 NORMAL EXAMINATION 01/22/2010 SURINDER PHD, KEELY A V70.0 NORMAL EXAMINATION 01/22/2010 VALDIVIA DO, JORDAN K V70.0 NORMAL EXAMINATION 01/22/2010 VALDIVIA DO, JORDAN K V70.0 NORMAL EXAMINATION 01/22/2010 DAVID SUPERVISOR [employer], RAFAEL E V70.0 NORMAL EXAMINATION 01/22/2010 VALDIVIA DO, JORDAN K V70.0 NORMAL EXAMINATION 01/22/2010 VALDIVIA DO, JORDAN K V70.0 NORMAL EXAMINATION 01/22/2010 JONATHAN GOMEZ MD V70.0 NORMAL EXAMINATION 01/22/2010 DAVID DE PAZ, RAFAEL E V70.0 NORMAL EXAMINATION 01/22/2010 SANDEE FOURNIER APRN V70.0 NORMAL EXAMINATION 01/22/2010 BERYL DE PAZ, DORITA A V70.0 NORMAL EXAMINATION 01/22/2010 VALDIVIA DO, JORDAN K V70.0 NORMAL EXAMINATION 01/22/2010 DAVID DE PAZ, RAFAEL E V70.0 NORMAL EXAMINATION 01/22/2010 VALDIVIA DO, JORDAN K V70.0 NORMAL EXAMINATION 01/22/2010 MAME REBOLLEDO APRN R V70.0 NORMAL EXAMINATION 01/22/2010 VALDIVIA DO, JORDAN K V70.0 NORMAL EXAMINATION 01/22/2010 VALDIVIA DO, JORDAN K V70.0 NORMAL EXAMINATION 01/22/2010 VALDIVIA DO, JORDAN K V70.0 NORMAL EXAMINATION 01/22/2010 DAVID DE PAZ, RAFAEL E V70.0 NORMAL EXAMINATION 01/22/2010 VALDIVIA DO, JORDAN K V70.0 NORMAL EXAMINATION 01/22/2010 SANDEE FOURNIER APRN V70.0 NORMAL EXAMINATION 01/22/2010 VALDIVIA DO, JORDAN K V70.0 NORMAL EXAMINATION 01/22/2011 SURINDER CONKLIN, KEELY Bucio V20.2 visit for: well child visit 01/22/2011 SANDEE FOURNIER APRN V20.2 visit for: well child visit 01/22/2011 V20.2 visit for: well child visit 01/22/2011 V20.2 visit for: well child visit 01/22/2011 V20.2 visit for: well child visit 01/22/2011 JORDAN VALDIVIA DO V20.2 visit for: well child visit 01/22/2011 V20.2 visit for: well child visit 01/22/2011 V20.2 visit for: well child visit 01/22/2011 V20.2 visit for: well child visit 01/22/2011 V20.2 visit for: well child visit 01/22/2011 V20.2 visit for: well child visit 01/22/2011 V20.2 visit for: well child visit 01/22/2011 SANDEE FOURNIER APRN V20.2 visit for: well child visit 01/22/2011 KEELY CADENA PHD V20.2 visit for: well child visit 01/22/2011 JORDAN VALDIVIA DO V20.2 visit for: well child visit 01/22/2011 KEELY CADENA PHD V20.2 visit for: well child visit 01/22/2011 KEELY CADENA PHD V20.2 visit for: well child visit 01/22/2011 JORDAN VALDIVIA DO V20.2 visit for: well child visit 01/22/2011 JORDAN VALDIVIA DO V20.2 visit for: well child visit 01/22/2011 RAFAEL HERNANDEZ APRN V20.2 visit for: well child visit 01/22/2011 JORDAN VALDIVIA DO V20.2 visit for: well child visit 01/22/2011 JORDAN VALDIVIA DO V20.2 visit for: well child visit 01/22/2011 JONATHAN GOMEZ MD V20.2 visit for: well child visit 01/22/2011 RAFAEL HERNANDEZ APRN V20.2 visit for: well child visit 01/22/2011 SANDEE FOURNIER APRN V20.2 visit for: well child visit 01/22/2011 DORITA CORDOBA APRN V20.2 visit for: well child visit 01/22/2011 JORDAN VALDIVIA DO V20.2 visit for: well child visit 01/22/2011 RAFAEL HERNANDEZ APRN V20.2 visit for: well child visit 01/22/2011 VALDIVIA DO, JORDAN K V20.2 visit for: well child visit 01/22/2011 MAME REBOLLEDO APRN V20.2 visit for: well child visit 01/22/2011 VALDIVIA DO JORDAN K V20.2 VISIT FOR: WELL CHILD VISIT 01/22/2011 VALDIVIA DO JORDAN K V20.2 VISIT FOR: WELL CHILD VISIT 01/22/2011 VALDIVIA DO JORDAN K V20.2 VISIT FOR: WELL CHILD VISIT 01/22/2011 RAFAEL HERNANDEZ APRN V20.2 VISIT FOR: WELL CHILD VISIT 01/22/2011 VALDIVIA DO, JORDAN K V20.2 VISIT FOR: WELL CHILD VISIT 01/22/2011 SANDEE FOURNIER APRN V20.2 VISIT FOR: WELL CHILD VISIT 01/22/2011 JORDAN VALDIVIA DO K V20.2 VISIT FOR: WELL CHILD VISIT 01/29/2011 SURINDER CONKLIN, KEELY Bucio 535.50 GASTRITIS UNSPEC 01/29/2011 SURINDER CONKLIN, KEELY Bucio 787.02 NAUSEA ALONE 01/29/2011 KEELY CADENA PHD 787.91 DIARRHEA 01/29/2011 SANDEE FOURNIER APRN 535.50 GASTRITIS UNSPEC 01/29/2011 SANDEE FOURNIER APRN 787.02 NAUSEA ALONE 01/29/2011 SANDEE FOURNIER APRN 787.91 DIARRHEA 01/29/2011 535.50 GASTRITIS UNSPEC 01/29/2011 787.02 NAUSEA ALONE 01/29/2011 787.91 DIARRHEA 01/29/2011 535.50 GASTRITIS UNSPEC 01/29/2011 787.02 NAUSEA ALONE 01/29/2011 787.91 DIARRHEA 01/29/2011 535.50 GASTRITIS UNSPEC 01/29/2011 787.02 NAUSEA ALONE 01/29/2011 787.91 DIARRHEA 01/29/2011 JORDAN VALDIVIA DO 535.50 GASTRITIS UNSPEC 01/29/2011 JORDAN VALDIVIA DO K 787.02 NAUSEA ALONE 01/29/2011 VALDIVIA MONICA LUISA K 787.91 DIARRHEA 01/29/2011 535.50 GASTRITIS UNSPEC 01/29/2011 787.02 NAUSEA ALONE 01/29/2011 787.91 DIARRHEA 01/29/2011 535.50 GASTRITIS UNSPEC 01/29/2011 787.02 NAUSEA ALONE 01/29/2011 787.91 DIARRHEA 01/29/2011 535.50 GASTRITIS UNSPEC 01/29/2011 787.02 NAUSEA ALONE 01/29/2011 787.91 DIARRHEA 01/29/2011 535.50 GASTRITIS UNSPEC 01/29/2011 787.02 NAUSEA ALONE 01/29/2011 787.91 DIARRHEA 01/29/2011 535.50 GASTRITIS UNSPEC 01/29/2011 787.02 NAUSEA ALONE 01/29/2011 787.91 DIARRHEA 01/29/2011 535.50 GASTRITIS UNSPEC 01/29/2011 787.02 NAUSEA ALONE 01/29/2011 787.91 DIARRHEA 01/29/2011 SANDEE FOURNIER APRN 535.50 GASTRITIS UNSPEC 01/29/2011 SANDEE FOURNIER APRN 787.02 NAUSEA ALONE 01/29/2011 SANDEE FOURNIER APRN 787.91 DIARRHEA 01/29/2011 SURINDER CONKLIN, KEELY Bucio 535.50 GASTRITIS UNSPEC 01/29/2011 SURINDER PHD, KEELY Bucio 787.02 NAUSEA ALONE 01/29/2011 SURINDER PHD, KEELY Bucio 787.91 DIARRHEA 01/29/2011 VALDIVIA DO, JORDAN K 535.50 GASTRITIS UNSPEC 01/29/2011 VALDIVIA DO, JORDAN K 787.02 NAUSEA ALONE 01/29/2011 VALDIVIA DO, JORDAN K 787.91 DIARRHEA 01/29/2011 SURINDER CONKLIN, KEELY Bucio 535.50 GASTRITIS UNSPEC 01/29/2011 SURINDER PHD, KEELY Bucio 787.02 NAUSEA ALONE 01/29/2011 SURINDER PHD, KEELY A 787.91 DIARRHEA 01/29/2011 SURINDER PHD, KEELY A 535.50 GASTRITIS UNSPEC 01/29/2011 SURINDER PHD, KEELY A 787.02 NAUSEA ALONE 01/29/2011 SURINDER PHD, KEELY A 787.91 DIARRHEA 01/29/2011 VALDIVIA DO, JORDAN K 535.50 GASTRITIS UNSPEC 01/29/2011 VALDIVIA DO, JORDAN K 787.02 NAUSEA ALONE 01/29/2011 VALDIVIA DO, JORDAN K 787.91 DIARRHEA 01/29/2011 VALDIVIA DO, JORDAN K 535.50 GASTRITIS UNSPEC 01/29/2011 VALDIVIA DO, JORDAN K 787.02 NAUSEA ALONE 01/29/2011 VALDIVIA DO, JORDAN K 787.91 DIARRHEA 01/29/2011 RAFAEL HERNANDEZ APRN 535.50 GASTRITIS UNSPEC 01/29/2011 RAFAEL HERNANDEZ APRN 787.02 NAUSEA ALONE 01/29/2011 RAFAEL HERNANDEZ APRN E 787.91 DIARRHEA 01/29/2011 VALDIVIA DO, JORDAN K 535.50 GASTRITIS UNSPEC 01/29/2011 VALDIVIA DO, JORDAN K 787.02 NAUSEA ALONE 01/29/2011 VALDIVIA DO, JORDAN K 787.91 DIARRHEA 01/29/2011 VALDIVIA DO, JORDAN K 535.50 GASTRITIS UNSPEC 01/29/2011 VALDIVIA DO, JORDAN K 787.02 NAUSEA ALONE 01/29/2011 VALDIVIA DO, JORDAN K 787.91 DIARRHEA 01/29/2011 JONATHAN GOMEZ MD 535.50 GASTRITIS UNSPEC 01/29/2011 JONATHAN GOMEZ MD 787.02 NAUSEA ALONE 01/29/2011 JONATHAN GOMEZ MD 787.91 DIARRHEA 01/29/2011 RAFAEL HERNANDEZ APRN 535.50 GASTRITIS UNSPEC 01/29/2011 RAFAEL HERNANDEZ APRN 787.02 NAUSEA ALONE 01/29/2011 RAFAEL HERNANDEZ APRN E 787.91 DIARRHEA 01/29/2011 SANDEE FOURNIER APRN 535.50 GASTRITIS UNSPEC 01/29/2011 SANDEE FOURNIER APRN 787.02 NAUSEA ALONE 01/29/2011 SANDEE FOURNIER APRN 787.91 DIARRHEA 01/29/2011 DORITA CORDOBA APRN A 535.50 GASTRITIS UNSPEC 01/29/2011 DORITA CORDOBA APRN A 787.02 NAUSEA ALONE 01/29/2011 LISANDRO CORDOBA APRNIDI A 787.91 DIARRHEA 01/29/2011 VALDIVIA DO, JORDAN K 535.50 GASTRITIS UNSPEC 01/29/2011 VALDIVIA DO, JORDAN K 787.02 NAUSEA ALONE 01/29/2011 VALDIVIA DO, JORDAN K 787.91 DIARRHEA 01/29/2011 IRENE HERNANDEZ APRNE E 535.50 GASTRITIS UNSPEC 01/29/2011 MONICA HERNANDEZ APRNSIE E 787.02 NAUSEA ALONE 01/29/2011 MONICA HERNANDEZ APRNSIE E 787.91 DIARRHEA 01/29/2011 VALDIVIA DO, JORDAN K 535.50 GASTRITIS UNSPEC 01/29/2011 VALDIVIA DO, JORDAN K 787.02 NAUSEA ALONE 01/29/2011 VALDIVIA DO, JORDAN K 787.91 DIARRHEA 01/29/2011 MARSHA REBOLLEDO APRNIA R 535.50 GASTRITIS UNSPEC 01/29/2011 MARSHA REBOLLEDO APRNIA R 787.02 NAUSEA ALONE 01/29/2011 MARSHA REBOLLEDO APRNIA R 787.91 DIARRHEA 01/29/2011 VALDIVIA DO, JORDAN K 535.50 GASTRITIS UNSPEC 01/29/2011 VALDIVIA DO, JORDAN K 787.02 NAUSEA ALONE 01/29/2011 VALDIVIA DO, JORDAN K 787.91 DIARRHEA 01/29/2011 VALDIVIA DO, JORDAN K 535.50 GASTRITIS UNSPEC 01/29/2011 VALDIVIA DO, JORDAN K 787.02 NAUSEA ALONE 01/29/2011 VALDIVIA DO, JORDAN K 787.91 DIARRHEA 01/29/2011 VALDIVIA DO, JORDAN K 535.50 GASTRITIS UNSPEC 01/29/2011 VALDIVIA DO, JORDAN K 787.02 NAUSEA ALONE 01/29/2011 VALDIVIA DO, JORDAN K 787.91 DIARRHEA 01/29/2011 LUKELRAFAEL CODY APRN E 535.50 GASTRITIS UNSPEC 01/29/2011 LUKELIRENE CODY APRNE E 787.02 NAUSEA ALONE 01/29/2011 HELLMONICA CODY APRNSIE E 787.91 DIARRHEA 01/29/2011 VALDIVIA DO, JORDAN K 535.50 GASTRITIS UNSPEC 01/29/2011 VALDIVIA DO, JORDAN K 787.02 NAUSEA ALONE 01/29/2011 VALDIVIA DO, JORDAN K 787.91 DIARRHEA 01/29/2011 SANDEE FOURNIER APRN 535.50 GASTRITIS UNSPEC 01/29/2011 SANDEE FOURNIER APRN 787.02 NAUSEA ALONE 01/29/2011 SANDEE FOURNIER APRN 787.91 DIARRHEA 01/29/2011 VALDIVIA DO, JORDAN K 535.50 GASTRITIS UNSPEC 01/29/2011 VALDIVIA DO, JORDAN K 787.02 NAUSEA ALONE 01/29/2011 VALDIVIA DO, JORDAN K 787.91 DIARRHEA 02/05/2011 SURINDER PHD, KEELY A V15.05 PERSONAL HISTORY OF ALLERGY TO OTHER FOODS 02/05/2011 SANDEE FOURNIER APRN V15.05 PERSONAL HISTORY OF ALLERGY TO OTHER FOODS 02/05/2011 V15.05 PERSONAL HISTORY OF ALLERGY TO OTHER FOODS 02/05/2011 V15.05 PERSONAL HISTORY OF ALLERGY TO OTHER FOODS 02/05/2011 V15.05 PERSONAL HISTORY OF ALLERGY TO OTHER FOODS 02/05/2011 VALDIVIA DO, JORDAN K V15.05 PERSONAL HISTORY OF ALLERGY TO OTHER FOODS 02/05/2011 V15.05 PERSONAL HISTORY OF ALLERGY TO OTHER FOODS 02/05/2011 V15.05 PERSONAL HISTORY OF ALLERGY TO OTHER FOODS 02/05/2011 V15.05 PERSONAL HISTORY OF ALLERGY TO OTHER FOODS 02/05/2011 V15.05 PERSONAL HISTORY OF ALLERGY TO OTHER FOODS 02/05/2011 V15.05 PERSONAL HISTORY OF ALLERGY TO OTHER FOODS 02/05/2011 V15.05 PERSONAL HISTORY OF ALLERGY TO OTHER FOODS 02/05/2011 SANDEE FOURNIER APRN V15.05 PERSONAL HISTORY OF ALLERGY TO OTHER FOODS 02/05/2011 KEELY CADENA PHD V15.05 PERSONAL HISTORY OF ALLERGY TO OTHER FOODS 02/05/2011 VALDIVIA DO, JORDAN K V15.05 PERSONAL HISTORY OF ALLERGY TO OTHER FOODS 02/05/2011 KEELY CADENA PHD V15.05 PERSONAL HISTORY OF ALLERGY TO OTHER FOODS 02/05/2011 KEELY CADENA PHD V15.05 PERSONAL HISTORY OF ALLERGY TO OTHER FOODS 02/05/2011 VALDIVIA DO, JORDAN K V15.05 PERSONAL HISTORY OF ALLERGY TO OTHER FOODS 02/05/2011 VALDIVIA DO, JORDAN K V15.05 PERSONAL HISTORY OF ALLERGY TO OTHER FOODS 02/05/2011 RAFAEL HERNANDEZ APRN V15.05 PERSONAL HISTORY OF ALLERGY TO OTHER FOODS 02/05/2011 VALDIVIA DO, JORDAN K V15.05 PERSONAL HISTORY OF ALLERGY TO OTHER FOODS 02/05/2011 VALDIVIA DO, JORDAN K V15.05 PERSONAL HISTORY OF ALLERGY TO OTHER FOODS 02/05/2011 JONATHAN GOMEZ MD V15.05 PERSONAL HISTORY OF ALLERGY TO OTHER FOODS 02/05/2011 RAFAEL HERNANDEZ APRN V15.05 PERSONAL HISTORY OF ALLERGY TO OTHER FOODS 02/05/2011 SANDEE FOURNIER APRN V15.05 PERSONAL HISTORY OF ALLERGY TO OTHER FOODS 02/05/2011 DORITA CORDOBA APRN V15.05 PERSONAL HISTORY OF ALLERGY TO OTHER FOODS 02/05/2011 VALDIVIA DO, JORDAN K V15.05 PERSONAL HISTORY OF ALLERGY TO OTHER FOODS 02/05/2011 RAFAEL HERNANDEZ APRN E V15.05 PERSONAL HISTORY OF ALLERGY TO OTHER FOODS 02/05/2011 VALDIVIA DO, JORDAN K V15.05 PERSONAL HISTORY OF ALLERGY TO OTHER FOODS 02/05/2011 MAME REBOLLEDO APRN V15.05 PERSONAL HISTORY OF ALLERGY TO OTHER FOODS 02/05/2011 VALDIVIA DO, JORDAN K V15.05 PERSONAL HISTORY OF ALLERGY TO OTHER FOODS 02/05/2011 VALDIVIA DO, JORDAN K V15.05 PERSONAL HISTORY OF ALLERGY TO OTHER FOODS 02/05/2011 VALDIVIA DO, JORDAN K V15.05 PERSONAL HISTORY OF ALLERGY TO OTHER FOODS 02/05/2011 RAFAEL HERNANDEZ APRN E V15.05 PERSONAL HISTORY OF ALLERGY TO OTHER FOODS 02/05/2011 VALDIVIA DO, JORDAN K V15.05 PERSONAL HISTORY OF ALLERGY TO OTHER FOODS 02/05/2011 SANDEE FOURNIER APRN V15.05 PERSONAL HISTORY OF ALLERGY TO OTHER FOODS 02/05/2011 VALDIVIA DO, JORDAN K V15.05 PERSONAL HISTORY OF ALLERGY TO OTHER FOODS 03/20/2011 KEELY CADENA PHD 462 PHARYNGITIS ACUTE 03/20/2011 KEELY CADENA PHD 477.9 RHINITIS 03/20/2011 SANDEE FOURNIER APRN 462 PHARYNGITIS ACUTE 03/20/2011 SANDEE FOURNIER APRN 477.9 RHINITIS 03/20/2011 462 PHARYNGITIS ACUTE 03/20/2011 477.9 RHINITIS 03/20/2011 462 PHARYNGITIS ACUTE 03/20/2011 477.9 RHINITIS 03/20/2011 462 PHARYNGITIS ACUTE 03/20/2011 477.9 RHINITIS 03/20/2011 SHEA DOJORDAN K 462 PHARYNGITIS ACUTE 03/20/2011 VALDIVIA DO, JORDAN K 477.9 RHINITIS 03/20/2011 462 PHARYNGITIS ACUTE 03/20/2011 477.9 RHINITIS 03/20/2011 462 PHARYNGITIS ACUTE 03/20/2011 477.9 RHINITIS 03/20/2011 462 PHARYNGITIS ACUTE 03/20/2011 477.9 RHINITIS 03/20/2011 462 PHARYNGITIS ACUTE 03/20/2011 477.9 RHINITIS 03/20/2011 462 PHARYNGITIS ACUTE 03/20/2011 477.9 RHINITIS 03/20/2011 462 PHARYNGITIS ACUTE 03/20/2011 477.9 RHINITIS 03/20/2011 SANDEE FOURNIER APRN 462 PHARYNGITIS ACUTE 03/20/2011 FOURNIERSANDEE HIRSCH APRN 477.9 RHINITIS 03/20/2011 SURINDER PHD, KEELY A 462 PHARYNGITIS ACUTE 03/20/2011 SURINDER PHD, KEELY A 477.9 RHINITIS 03/20/2011 VALDIVIA DO, JORDAN K 462 PHARYNGITIS ACUTE 03/20/2011 VALDIVIA DO, JORDAN K 477.9 RHINITIS 03/20/2011 SURINDER PHD, KEELY A 462 PHARYNGITIS ACUTE 03/20/2011 SURINDER PHD, KEELY A 477.9 RHINITIS 03/20/2011 SURINDER PHD, KEELY A 462 PHARYNGITIS ACUTE 03/20/2011 SURINDER PHD, KEELY A 477.9 RHINITIS 03/20/2011 VALDIVIA DO, JORDAN K 462 PHARYNGITIS ACUTE 03/20/2011 VALDIVIA DO, JORDAN K 477.9 RHINITIS 03/20/2011 VALDIVIA DO, JORDAN K 462 PHARYNGITIS ACUTE 03/20/2011 VALDIVIA DO, JORDAN K 477.9 RHINITIS 03/20/2011 RAFAEL HERNANDEZ APRN E 462 PHARYNGITIS ACUTE 03/20/2011 RAFAEL HERNANDEZ APRN E 477.9 RHINITIS 03/20/2011 VALDIVIA DO, JORDAN K 462 PHARYNGITIS ACUTE 03/20/2011 VALDIVIA DO, JORDAN K 477.9 RHINITIS 03/20/2011 VALDIVIA DO, JORDAN K 462 PHARYNGITIS ACUTE 03/20/2011 VALDIVIA DO, JORDAN K 477.9 RHINITIS 03/20/2011 JONATHAN GOMEZ MD 462 PHARYNGITIS ACUTE 03/20/2011 JONATHAN GOMEZ MD 477.9 RHINITIS 03/20/2011 RAFAEL HERNANDEZ APRN E 462 PHARYNGITIS ACUTE 03/20/2011 RAFAEL HERNANDEZ APRN 477.9 RHINITIS 03/20/2011 FOURNIER SUPERVISOR [employer], SANDEE R 462 PHARYNGITIS ACUTE 03/20/2011 FOURNIER SUPERVISOR [employer], SANDEE R 477.9 RHINITIS 03/20/2011 BERYL SUPERVISOR [employer], DORITA A 462 PHARYNGITIS ACUTE 03/20/2011 BERYL SUPERVISOR [employer], DORITA A 477.9 RHINITIS 03/20/2011 VALDIVIA DO, JORDAN K 462 PHARYNGITIS ACUTE 03/20/2011 VALDIVIA DO, JORDAN K 477.9 RHINITIS 03/20/2011 HELLWIG SUPERVISOR [employer], RAFAEL E 462 PHARYNGITIS ACUTE 03/20/2011 HELLWIG SUPERVISOR [employer], RAFAEL E 477.9 RHINITIS 03/20/2011 VALDIVIA DO, JORDAN K 462 PHARYNGITIS ACUTE 03/20/2011 VALDIVIA DO, JORDAN K 477.9 RHINITIS 03/20/2011 REBOLLEDO SUPERVISOR [employer], MAME R 462 PHARYNGITIS ACUTE 03/20/2011 REBOLLEDO SUPERVISOR [employer], MAME R 477.9 RHINITIS 03/20/2011 VALDIVIA DO, JORDAN K 462 PHARYNGITIS ACUTE 03/20/2011 VALDIVIA DO, JORDAN K 477.9 RHINITIS 03/20/2011 VALDIVIA DO, JORDAN K 462 PHARYNGITIS ACUTE 03/20/2011 VALDIVIA DO, JORDAN K 477.9 RHINITIS 03/20/2011 VALDIVIA DO, JORDAN K 462 PHARYNGITIS ACUTE 03/20/2011 VALDIVIA DO, JORDAN K 477.9 RHINITIS 03/20/2011 HELLWIG SUPERVISOR [employer], RAFAEL E 462 PHARYNGITIS ACUTE 03/20/2011 HELLWIG SUPERVISOR [employer], RAFAEL E 477.9 RHINITIS 03/20/2011 VALDIVIA DO, JORDAN K 462 PHARYNGITIS ACUTE 03/20/2011 VALDIVIA DO, JORDAN K 477.9 RHINITIS 03/20/2011 FOURNIER SUPERVISOR [employer], SANDEE R 462 PHARYNGITIS ACUTE 03/20/2011 FOURNIER SUPERVISOR [employer], SANDEE R 477.9 RHINITIS 03/20/2011 VALDIVIA DO, JORDAN K 462 PHARYNGITIS ACUTE 03/20/2011 VALDIVIA DO, JORDAN K 477.9 RHINITIS 05/08/2011 SURINDER PHD, KEELY A 493.92 ASTHMA UNSPECIFIED WITH (ACUTE) EXACERBATION 05/08/2011 SANDEE FOURNIER APRN 493.92 ASTHMA UNSPECIFIED WITH (ACUTE) EXACERBATION 05/08/2011 493.92 ASTHMA UNSPECIFIED WITH (ACUTE) EXACERBATION 05/08/2011 493.92 ASTHMA UNSPECIFIED WITH (ACUTE) EXACERBATION 05/08/2011 493.92 ASTHMA UNSPECIFIED WITH (ACUTE) EXACERBATION 05/08/2011 JORDAN VALDIVIA DO K 493.92 ASTHMA UNSPECIFIED WITH (ACUTE) EXACERBATION 05/08/2011 493.92 ASTHMA UNSPECIFIED WITH (ACUTE) EXACERBATION 05/08/2011 493.92 ASTHMA UNSPECIFIED WITH (ACUTE) EXACERBATION 05/08/2011 493.92 ASTHMA UNSPECIFIED WITH (ACUTE) EXACERBATION 05/08/2011 493.92 ASTHMA UNSPECIFIED WITH (ACUTE) EXACERBATION 05/08/2011 493.92 ASTHMA UNSPECIFIED WITH (ACUTE) EXACERBATION 05/08/2011 493.92 ASTHMA UNSPECIFIED WITH (ACUTE) EXACERBATION 05/08/2011 SANDEE FOURNIER APRN 493.92 ASTHMA UNSPECIFIED WITH (ACUTE) EXACERBATION 05/08/2011 KEELY CADENA PHD 493.92 ASTHMA UNSPECIFIED WITH (ACUTE) EXACERBATION 05/08/2011 MONICA VALDIVIA DOA K 493.92 ASTHMA UNSPECIFIED WITH (ACUTE) EXACERBATION 05/08/2011 KEELY CADENA PHD 493.92 ASTHMA UNSPECIFIED WITH (ACUTE) EXACERBATION 05/08/2011 KEELY CADENA PHD 493.92 ASTHMA UNSPECIFIED WITH (ACUTE) EXACERBATION 05/08/2011 MONICA VALDIVIA DOA K 493.92 ASTHMA UNSPECIFIED WITH (ACUTE) EXACERBATION 05/08/2011 MONICA VALDIVIA DOA K 493.92 ASTHMA UNSPECIFIED WITH (ACUTE) EXACERBATION 05/08/2011 RAFAEL HERNANDEZ APRN 493.92 ASTHMA UNSPECIFIED WITH (ACUTE) EXACERBATION 05/08/2011 VALDIVIA DO JORDAN K 493.92 ASTHMA UNSPECIFIED WITH (ACUTE) EXACERBATION 05/08/2011 SHEA LUIS JORDAN K 493.92 ASTHMA UNSPECIFIED WITH (ACUTE) EXACERBATION 05/08/2011 JONATHAN GOMEZ MD 493.92 ASTHMA UNSPECIFIED WITH (ACUTE) EXACERBATION 05/08/2011 RAFAEL HERNANDEZ APRN 493.92 ASTHMA UNSPECIFIED WITH (ACUTE) EXACERBATION 05/08/2011 SANDEE FOURNIER APRN 493.92 ASTHMA UNSPECIFIED WITH (ACUTE) EXACERBATION 05/08/2011 DORITA CORDOBA APRN 493.92 ASTHMA UNSPECIFIED WITH (ACUTE) EXACERBATION 05/08/2011 MONICA VALDIVIA DOA K 493.92 ASTHMA UNSPECIFIED WITH (ACUTE) EXACERBATION 05/08/2011 RAFAEL HERNANDEZ APRN 493.92 ASTHMA UNSPECIFIED WITH (ACUTE) EXACERBATION 05/08/2011 VALDIVIA DOMONICAA K 493.92 ASTHMA UNSPECIFIED WITH (ACUTE) EXACERBATION 05/08/2011 MAME REBOLLEDO APRN 493.92 ASTHMA UNSPECIFIED WITH (ACUTE) EXACERBATION 05/08/2011 VALDIVIA DO JORDAN K 493.92 ASTHMA UNSPECIFIED WITH (ACUTE) EXACERBATION 05/08/2011 VALDIVIA DO, JORDAN K 493.92 ASTHMA UNSPECIFIED WITH (ACUTE) EXACERBATION 05/08/2011 VALDIVIA DO JORDAN K 493.92 ASTHMA UNSPECIFIED WITH (ACUTE) EXACERBATION 05/08/2011 RAFAEL HERNANDEZ APRN 493.92 ASTHMA UNSPECIFIED WITH (ACUTE) EXACERBATION 05/08/2011 MONICA VALDIVIA DOA K 493.92 ASTHMA UNSPECIFIED WITH (ACUTE) EXACERBATION 05/08/2011 SANDEE FOURNIER APRN 493.92 ASTHMA UNSPECIFIED WITH (ACUTE) EXACERBATION 05/08/2011 MONICA VALDIVIA DOA K 493.92 ASTHMA UNSPECIFIED WITH (ACUTE) EXACERBATION 05/16/2011 SURINDER PHD, KEELY Bucio 079.99 VIRAL SYNDROME 05/16/2011 SURINDER PHD, KEELY Bucio 787.01 NAUSEA WITH VOMITING 05/16/2011 SANDEE FOURNIER APRN 079.99 VIRAL SYNDROME 05/16/2011 SANDEE FOURNIER APRN 787.01 NAUSEA WITH VOMITING 05/16/2011 079.99 VIRAL SYNDROME 05/16/2011 787.01 NAUSEA WITH VOMITING 05/16/2011 079.99 VIRAL SYNDROME 05/16/2011 787.01 NAUSEA WITH VOMITING 05/16/2011 079.99 VIRAL SYNDROME 05/16/2011 787.01 NAUSEA WITH VOMITING 05/16/2011 JORDAN VALDIVIA DO 079.99 VIRAL SYNDROME 05/16/2011 JORDAN VALDIVIA DO K 787.01 NAUSEA WITH VOMITING 05/16/2011 079.99 VIRAL SYNDROME 05/16/2011 787.01 NAUSEA WITH VOMITING 05/16/2011 079.99 VIRAL SYNDROME 05/16/2011 787.01 NAUSEA WITH VOMITING 05/16/2011 079.99 VIRAL SYNDROME 05/16/2011 787.01 NAUSEA WITH VOMITING 05/16/2011 079.99 VIRAL SYNDROME 05/16/2011 787.01 NAUSEA WITH VOMITING 05/16/2011 079.99 VIRAL SYNDROME 05/16/2011 787.01 NAUSEA WITH VOMITING 05/16/2011 079.99 VIRAL SYNDROME 05/16/2011 787.01 NAUSEA WITH VOMITING 05/16/2011 SANDEE FOURNIER APRN 079.99 VIRAL SYNDROME 05/16/2011 SANDEE FOURNIER APRN 787.01 NAUSEA WITH VOMITING 05/16/2011 SURINDER CONKLIN, KEELY Bucio 079.99 VIRAL SYNDROME 05/16/2011 SURINDER CONKLIN, KEELY Bucio 787.01 NAUSEA WITH VOMITING 05/16/2011 VALDIVIA DO JORDAN K 079.99 VIRAL SYNDROME 05/16/2011 VALDIVIA DOMONICAA Jocelyne 787.01 NAUSEA WITH VOMITING 05/16/2011 SURINDER CONKLIN, KEELY Bucio 079.99 VIRAL SYNDROME 05/16/2011 SURINDER CONKLIN, KEELY Bucio 787.01 NAUSEA WITH VOMITING 05/16/2011 SURINDER CONKLIN, KEELY Bucio 079.99 VIRAL SYNDROME 05/16/2011 SURINDER CONKLIN, KEELY Bucio 787.01 NAUSEA WITH VOMITING 05/16/2011 VALDIVIA DO, JORDAN K 079.99 VIRAL SYNDROME 05/16/2011 VALDIVIA DO, JORDAN K 787.01 NAUSEA WITH VOMITING 05/16/2011 VALDIVIA DO, JORDAN K 079.99 VIRAL SYNDROME 05/16/2011 VALDIVIA DO, JORDAN K 787.01 NAUSEA WITH VOMITING 05/16/2011 RAFAEL HERNANDEZ APRN E 079.99 VIRAL SYNDROME 05/16/2011 RAFAEL HERNANDEZ APRN E 787.01 NAUSEA WITH VOMITING 05/16/2011 VALDIVIA DO, JORDAN K 079.99 VIRAL SYNDROME 05/16/2011 VALDIVIA DO, JORDAN K 787.01 NAUSEA WITH VOMITING 05/16/2011 VALDIVIA DO, JORDAN K 079.99 VIRAL SYNDROME 05/16/2011 VALDIVIA DO, JORDAN K 787.01 NAUSEA WITH VOMITING 05/16/2011 JONATHAN GOMEZ MD 079.99 VIRAL SYNDROME 05/16/2011 JONATHAN GOMEZ MD 787.01 NAUSEA WITH VOMITING 05/16/2011 RAFAEL HERNANDEZ APRN 079.99 VIRAL SYNDROME 05/16/2011 RAFAEL HERNANDEZ APRN 787.01 NAUSEA WITH VOMITING 05/16/2011 SANDEE FOURNIER APRN 079.99 VIRAL SYNDROME 05/16/2011 SANDEE FOURNIER APRN 787.01 NAUSEA WITH VOMITING 05/16/2011 DORITA CORDOBA APRN A 079.99 VIRAL SYNDROME 05/16/2011 BERYLDORITA Estrada APRN A 787.01 NAUSEA WITH VOMITING 05/16/2011 VALDIVIA DO, JORDAN K 079.99 VIRAL SYNDROME 05/16/2011 VALDIVIA DO, JORDAN K 787.01 NAUSEA WITH VOMITING 05/16/2011 RAFAEL HERNANDEZ APRN E 079.99 VIRAL SYNDROME 05/16/2011 RAFAEL HERNANDEZ APRN 787.01 NAUSEA WITH VOMITING 05/16/2011 VALDIVIA DO, JORDAN K 079.99 VIRAL SYNDROME 05/16/2011 VALDIVIA DO, JORDAN K 787.01 NAUSEA WITH VOMITING 05/16/2011 REBOLLEDO MAME DE PAZ R 079.99 VIRAL SYNDROME 05/16/2011 REBOLLEDO MAME DE PAZ R 787.01 NAUSEA WITH VOMITING 05/16/2011 VALDIVIA DO, JORDAN K 079.99 VIRAL SYNDROME 05/16/2011 VALDIVIA DO, JORDAN K 787.01 NAUSEA WITH VOMITING 05/16/2011 VALDIVIA DO, JORDAN K 079.99 VIRAL SYNDROME 05/16/2011 VALDIVIA DO, JORDAN K 787.01 NAUSEA WITH VOMITING 05/16/2011 VALDIVIA DO, JORDAN K 079.99 VIRAL SYNDROME 05/16/2011 VALDIVIA DO, JORDAN K 787.01 NAUSEA WITH VOMITING 05/16/2011 RAFAEL HERNANDEZ APRN E 079.99 VIRAL SYNDROME 05/16/2011 RAFAEL HERNANDEZ APRN 787.01 NAUSEA WITH VOMITING 05/16/2011 VALDIVIA DO, JORDAN K 079.99 VIRAL SYNDROME 05/16/2011 VALDIVIA DO, JORDAN K 787.01 NAUSEA WITH VOMITING 05/16/2011 SANDEE FOURNIER APRN 079.99 VIRAL SYNDROME 05/16/2011 SANDEE FOURNIER APRN 787.01 NAUSEA WITH VOMITING 05/16/2011 JORDAN VALDIVIA DO K 079.99 VIRAL SYNDROME 05/16/2011 JORDAN VALDIVIA DO K 787.01 NAUSEA WITH VOMITING 05/27/2011 KEELY CADENA PHD V25.9 CONTRACEPTION MANAGEMENT 05/27/2011 KEELY CADENA PHD V65.42 Intervention And Counseling On Cessation Of Tobacco Use 05/27/2011 SANDEE FOURNIER APRN V25.9 CONTRACEPTION MANAGEMENT 05/27/2011 SANDEE FOURNIER APRN V65.42 Intervention And Counseling On Cessation Of Tobacco Use 05/27/2011 V25.9 CONTRACEPTION MANAGEMENT 05/27/2011 V65.42 Intervention And Counseling On Cessation Of Tobacco Use 05/27/2011 V25.9 CONTRACEPTION MANAGEMENT 05/27/2011 V65.42 Intervention And Counseling On Cessation Of Tobacco Use 05/27/2011 V25.9 CONTRACEPTION MANAGEMENT 05/27/2011 V65.42 Intervention And Counseling On Cessation Of Tobacco Use 05/27/2011 JORDAN VALDIVIA DO Jocelyne V25.9 CONTRACEPTION MANAGEMENT 05/27/2011 JORDAN VALDIVIA DO Jocelyne V65.42 Intervention And Counseling On Cessation Of Tobacco Use 05/27/2011 V25.9 CONTRACEPTION MANAGEMENT 05/27/2011 V65.42 Intervention And Counseling On Cessation Of Tobacco Use 05/27/2011 V25.9 CONTRACEPTION MANAGEMENT 05/27/2011 V65.42 Intervention And Counseling On Cessation Of Tobacco Use 05/27/2011 V25.9 CONTRACEPTION MANAGEMENT 05/27/2011 V65.42 Intervention And Counseling On Cessation Of Tobacco Use 05/27/2011 V25.9 CONTRACEPTION MANAGEMENT 05/27/2011 V65.42 Intervention And Counseling On Cessation Of Tobacco Use 05/27/2011 V25.9 CONTRACEPTION MANAGEMENT 05/27/2011 V65.42 Intervention And Counseling On Cessation Of Tobacco Use 05/27/2011 V25.9 CONTRACEPTION MANAGEMENT 05/27/2011 V65.42 Intervention And Counseling On Cessation Of Tobacco Use 05/27/2011 SANDEE FOURNIER APRN V25.9 CONTRACEPTION MANAGEMENT 05/27/2011 SANDEE FOURNIER APRN V65.42 Intervention And Counseling On Cessation Of Tobacco Use 05/27/2011 KEELY CADENA PHD V25.9 CONTRACEPTION MANAGEMENT 05/27/2011 KEELY CADENA PHD V65.42 Intervention And Counseling On Cessation Of Tobacco Use 05/27/2011 VALDIVIA DO JORDAN K V25.9 CONTRACEPTION MANAGEMENT 05/27/2011 VALDIVIA DO JORDAN K V65.42 Intervention And Counseling On Cessation Of Tobacco Use 05/27/2011 KEELY CADENA PHD V25.9 CONTRACEPTION MANAGEMENT 05/27/2011 KEELY CADENA PHD V65.42 Intervention And Counseling On Cessation Of Tobacco Use 05/27/2011 KEELY CADENA PHD V25.9 CONTRACEPTION MANAGEMENT 05/27/2011 [facility] KEELY CONKLIN V65.42 Intervention And Counseling On Cessation Of Tobacco Use 05/27/2011 VALDIVIA DO JORDAN K V25.9 CONTRACEPTION MANAGEMENT 05/27/2011 VALDIVIA DO JORDAN K V65.42 Intervention And Counseling On Cessation Of Tobacco Use 05/27/2011 VALDIVIA DO JORDAN K V25.9 CONTRACEPTION MANAGEMENT 05/27/2011 VALDIVIA DO JORDAN K V65.42 Intervention And Counseling On Cessation Of Tobacco Use 05/27/2011 RAFAEL HERNANDEZ APRN E V25.9 CONTRACEPTION MANAGEMENT 05/27/2011 RAFAEL HERNANDEZ APRN E V65.42 Intervention And Counseling On Cessation Of Tobacco Use 05/27/2011 VALDIVIA DO JORDAN K V25.9 CONTRACEPTION MANAGEMENT 05/27/2011 VALDIVIA DO JORDAN K V65.42 Intervention And Counseling On Cessation Of Tobacco Use 05/27/2011 VALDIVIA DO JORDAN K V25.9 CONTRACEPTION MANAGEMENT 05/27/2011 VALDIVIA DO JORDAN K V65.42 Intervention And Counseling On Cessation Of Tobacco Use 05/27/2011 JONATHAN GOMEZ MD V25.9 CONTRACEPTION MANAGEMENT 05/27/2011 JONATHAN GOMEZ MD V65.42 Intervention And Counseling On Cessation Of Tobacco Use 05/27/2011 RAFAEL HERNANDEZ APRN E V25.9 CONTRACEPTION MANAGEMENT 05/27/2011 RAFAEL HERNANDEZ APRN V65.42 Intervention And Counseling On Cessation Of Tobacco Use 05/27/2011 SANDEE FOURNIER APRN V25.9 CONTRACEPTION MANAGEMENT 05/27/2011 SANDEE FOURNIER APRN V65.42 Intervention And Counseling On Cessation Of Tobacco Use 05/27/2011 DORITA CORDOBA APRN V25.9 CONTRACEPTION MANAGEMENT 05/27/2011 DORITA CORDOBA APRN V65.42 Intervention And Counseling On Cessation Of Tobacco Use 05/27/2011 VALDIVIA DO, JORDAN K V25.9 CONTRACEPTION MANAGEMENT 05/27/2011 VALDIVIA DO, JORDAN K V65.42 Intervention And Counseling On Cessation Of Tobacco Use 05/27/2011 MONICA HERNANDEZ APRNSIE E V25.9 CONTRACEPTION MANAGEMENT 05/27/2011 LUKEIRENE CODY APRNE E V65.42 Intervention And Counseling On Cessation Of Tobacco Use 05/27/2011 VALDIVIA DO, JORDAN K V25.9 CONTRACEPTION MANAGEMENT 05/27/2011 VALDIVIA DO, JORDAN K V65.42 Intervention And Counseling On Cessation Of Tobacco Use 05/27/2011 WILFREDO REBOLLEDO APRNRICIA R V25.9 CONTRACEPTION MANAGEMENT 05/27/2011 WILFREDO REBOLLEDO APRNRICIA R V65.42 Intervention And Counseling On Cessation Of Tobacco Use 05/27/2011 VALDIVIA DO, JORDAN K V25.9 CONTRACEPTION MANAGEMENT 05/27/2011 VALDIVIA DO, JORDAN K V65.42 INTERVENTION AND COUNSELING ON CESSATION OF TOBACCO USE 05/27/2011 VALDIVIA DO, JORDAN K V25.9 CONTRACEPTION MANAGEMENT 05/27/2011 VALDIVIA DO, JORDAN K V65.42 INTERVENTION AND COUNSELING ON CESSATION OF TOBACCO USE 05/27/2011 VALDIVIA DO, JORDAN K V25.9 CONTRACEPTION MANAGEMENT 05/27/2011 VALDIVIA DO, JORDAN K V65.42 INTERVENTION AND COUNSELING ON CESSATION OF TOBACCO USE 05/27/2011 IRENE HERNANDEZ APRNE E V25.9 CONTRACEPTION MANAGEMENT 05/27/2011 IRENE HERNANDEZ APRNE E V65.42 INTERVENTION AND COUNSELING ON CESSATION OF TOBACCO USE 05/27/2011 VALDIVIA DO, JORDAN K V25.9 CONTRACEPTION MANAGEMENT 05/27/2011 VALDIVIA DO, JORDAN K V65.42 INTERVENTION AND COUNSELING ON CESSATION OF TOBACCO USE 05/27/2011 SANDEE FOURNIER APRN V25.9 CONTRACEPTION MANAGEMENT 05/27/2011 SANDEE FOURNIER APRN V65.42 INTERVENTION AND COUNSELING ON CESSATION OF TOBACCO USE 05/27/2011 VALDIVIA DO, JORDAN K V25.9 CONTRACEPTION MANAGEMENT 05/27/2011 VALDIVIA DO JORDAN K V65.42 INTERVENTION AND COUNSELING ON CESSATION OF TOBACCO USE 06/27/2011 SURINDER PHD, KEELY Bucio 388.70 EARACHE LEFT EAR 06/27/2011 SANDEE FOURNIER APRN 388.70 EARACHE LEFT EAR 06/27/2011 388.70 EARACHE LEFT EAR 06/27/2011 388.70 EARACHE LEFT EAR 06/27/2011 388.70 EARACHE LEFT EAR 06/27/2011 JORDAN VALDIVIA DO K 388.70 EARACHE LEFT EAR 06/27/2011 388.70 EARACHE LEFT EAR 06/27/2011 388.70 EARACHE LEFT EAR 06/27/2011 388.70 EARACHE LEFT EAR 06/27/2011 388.70 EARACHE LEFT EAR 06/27/2011 388.70 EARACHE LEFT EAR 06/27/2011 388.70 EARACHE LEFT EAR 06/27/2011 SANDEE FOURNIER APRN 388.70 EARACHE LEFT EAR 06/27/2011 SURINDER PHD, KEELY Bucio 388.70 EARACHE LEFT EAR 06/27/2011 MONICA VALDIVIA DOA K 388.70 EARACHE LEFT EAR 06/27/2011 SURINDER PHD, KEELY Bucio 388.70 EARACHE LEFT EAR 06/27/2011 SURINDER PHD, KEELY Bucio 388.70 EARACHE LEFT EAR 06/27/2011 MONICA VALDIVIA DOA K 388.70 EARACHE LEFT EAR 06/27/2011 VALDIVIA DOMONICAA K 388.70 EARACHE LEFT EAR 06/27/2011 RAFAEL HERNANDEZ APRN 388.70 EARACHE LEFT EAR 06/27/2011 VALDIVIA DO JORDAN K 388.70 EARACHE LEFT EAR 06/27/2011 VALDIVIA DO JORDAN K 388.70 EARACHE LEFT EAR 06/27/2011 JONATHAN GOMEZ MD 388.70 EARACHE LEFT EAR 06/27/2011 RAFAEL HERNANDEZ APRN 388.70 EARACHE LEFT EAR 06/27/2011 SANDEE FOURNIER APRN 388.70 EARACHE LEFT EAR 06/27/2011 DORITA CORDOBA APRN 388.70 EARACHE LEFT EAR 06/27/2011 VALDIVIA MONICA LUISA K 388.70 EARACHE LEFT EAR 06/27/2011 RAFAEL HERNANDEZ APRN 388.70 EARACHE LEFT EAR 06/27/2011 VALDIVIA MONICA LUISA K 388.70 EARACHE LEFT EAR 06/27/2011 MAME REBOLLEDO APRN 388.70 EARACHE LEFT EAR 06/27/2011 VALDIVIA DO, JORDAN K 388.70 EARACHE LEFT EAR 06/27/2011 VALDIVIA DO, JORDAN K 388.70 EARACHE LEFT EAR 06/27/2011 VALDIVIA DO, JORDAN K 388.70 EARACHE LEFT EAR 06/27/2011 RAFAEL HERNANDEZ APRN 388.70 EARACHE LEFT EAR 06/27/2011 VALDIVIA DO, JORDAN K 388.70 EARACHE LEFT EAR 06/27/2011 SANDEE FOURNIER APRN 388.70 EARACHE LEFT EAR 06/27/2011 VALDIVIA DO, JORDAN K 388.70 EARACHE LEFT EAR 07/05/2011 KEELY CADENA PHD 296.90 MOOD DISORDER NOS 07/05/2011 SANDEE FOURNIER APRN 296.90 MOOD DISORDER NOS 07/05/2011 296.90 MOOD DISORDER NOS 07/05/2011 296.90 MOOD DISORDER NOS 07/05/2011 296.90 MOOD DISORDER NOS 07/05/2011 VALDIVIA DO, JORDAN K 296.90 MOOD DISORDER NOS 07/05/2011 296.90 MOOD DISORDER NOS 07/05/2011 296.90 MOOD DISORDER NOS 07/05/2011 296.90 MOOD DISORDER NOS 07/05/2011 296.90 MOOD DISORDER NOS 07/05/2011 296.90 MOOD DISORDER NOS 07/05/2011 296.90 MOOD DISORDER NOS 07/05/2011 SANDEE FOURNIER APRN 296.90 MOOD DISORDER NOS 07/05/2011 SURINDER CONKLIN, KEELY Bucio 296.90 MOOD DISORDER NOS 07/05/2011 VALDIVIA DO, JORDAN K 296.90 MOOD DISORDER NOS 07/05/2011 SURINDER CONKLIN, KEELY Bucio 296.90 MOOD DISORDER NOS 07/05/2011 KEELY CADENA PHD 296.90 MOOD DISORDER NOS 07/05/2011 VALDIVIA DO, JORDAN K 296.90 MOOD DISORDER NOS 07/05/2011 VALDIVIA DO, JORDAN K 296.90 MOOD DISORDER NOS 07/05/2011 RAFAEL HERNANDEZ APRN 296.90 MOOD DISORDER NOS 07/05/2011 VALDIVIA DO, JORDAN K 296.90 MOOD DISORDER NOS 07/05/2011 VALDIVIA DO, JORDAN K 296.90 MOOD DISORDER NOS 07/05/2011 JONATHAN GOMEZ MD 296.90 MOOD DISORDER NOS 07/05/2011 [employer], RAFAEL E 296.90 MOOD DISORDER NOS 07/05/2011 SANDEE FOURNIER APRN 296.90 MOOD DISORDER NOS 07/05/2011 DORITA CORDOBA APRN A 296.90 MOOD DISORDER NOS 07/05/2011 VALDIVIA DO, JORDAN K 296.90 MOOD DISORDER NOS 07/05/2011 RAFAEL HERNANDEZ APRN E 296.90 MOOD DISORDER NOS 07/05/2011 VALDIVIA DO, JORDAN K 296.90 MOOD DISORDER NOS 07/05/2011 MAME REBOLLEDO APRN 296.90 MOOD DISORDER NOS 07/05/2011 VALDIVIA DO, JORDAN K 296.90 MOOD DISORDER NOS 07/05/2011 VALDIVIA DO, JORDAN K 296.90 MOOD DISORDER NOS 07/05/2011 VALDIVIA DO, JORDAN K 296.90 MOOD DISORDER NOS 07/05/2011 MONICA HERNANDEZ APRNSIE E 296.90 MOOD DISORDER NOS 07/05/2011 VALDIVIA DO, JORDAN K 296.90 MOOD DISORDER NOS 07/05/2011 SANDEE FOURNIER APRN 296.90 MOOD DISORDER NOS 07/05/2011 VALDIVIA DO, JORDAN K 296.90 MOOD DISORDER NOS 08/26/2011 SURINDER PHD, KEELY A 726.90 TENDONITIS 08/26/2011 SANEDE FOURNIER APRN 726.90 TENDONITIS 08/26/2011 726.90 TENDONITIS 08/26/2011 726.90 TENDONITIS 08/26/2011 726.90 TENDONITIS 08/26/2011 JORDAN VALDIVIA DO K 726.90 TENDONITIS 08/26/2011 726.90 TENDONITIS 08/26/2011 726.90 TENDONITIS 08/26/2011 726.90 TENDONITIS 08/26/2011 726.90 TENDONITIS 08/26/2011 726.90 TENDONITIS 08/26/2011 726.90 TENDONITIS 08/26/2011 SANDEE FOURNIER APRN 726.90 TENDONITIS 08/26/2011 SURINDER PHD, KEELY A 726.90 TENDONITIS 08/26/2011 JORDAN VALDIVIA DO K 726.90 TENDONITIS 08/26/2011 SURINDER PHD, KELEY A 726.90 TENDONITIS 08/26/2011 SURINDER PHD, KEELY A 726.90 TENDONITIS 08/26/2011 VALDIVIA DO, OJRDAN K 726.90 TENDONITIS 08/26/2011 VALDIVIA DO, JORDAN K 726.90 TENDONITIS 08/26/2011 RAFAEL HERNANDEZ APRN 726.90 TENDONITIS 08/26/2011 VALIDVIA DO, JORDAN K 726.90 TENDONITIS 08/26/2011 VALDIVIA DO, JORDAN K 726.90 TENDONITIS 08/26/2011 JONATHAN GOMEZ MD 726.90 TENDONITIS 08/26/2011 RAFAEL HERNANDEZ APRN 726.90 TENDONITIS 08/26/2011 SANDEE FOURNIER APRN 726.90 TENDONITIS 08/26/2011 DORITA CORDOBA APRN 726.90 TENDONITIS 08/26/2011 VALDIVIA DO, JORDAN K 726.90 TENDONITIS 08/26/2011 RAFAEL HERNANDEZ APRN E 726.90 TENDONITIS 08/26/2011 VALDIVIA DO, JORDAN K 726.90 TENDONITIS 08/26/2011 MAME REBOLLEDO APRN 726.90 TENDONITIS 08/26/2011 VALDIVIA DO, JORDAN K 726.90 TENDONITIS 08/26/2011 VALDIVIA DO, JORDAN K 726.90 TENDONITIS 08/26/2011 VALDIVIA DO, JORDAN K 726.90 TENDONITIS 08/26/2011 RAFAEL HERNANDEZ APRN 726.90 TENDONITIS 08/26/2011 VALDIVIA DO, JORDAN K 726.90 TENDONITIS 08/26/2011 SANDEE FOURNIER APRN 726.90 TENDONITIS 08/26/2011 VALDIVIA DO, JORDAN K 726.90 TENDONITIS 09/23/2011 SURINDER PHD, KEELY A 719.46 KNEE PAIN 09/23/2011 SANDEE FOURNIER APRN 719.46 KNEE PAIN 09/23/2011 719.46 KNEE PAIN 09/23/2011 719.46 KNEE PAIN 09/23/2011 719.46 KNEE PAIN 09/23/2011 VALDIVIA JORDAN LUIS K 719.46 KNEE PAIN 09/23/2011 719.46 KNEE PAIN 09/23/2011 719.46 KNEE PAIN 09/23/2011 719.46 KNEE PAIN 09/23/2011 719.46 KNEE PAIN 09/23/2011 719.46 KNEE PAIN 09/23/2011 719.46 KNEE PAIN 09/23/2011 SANDEE FOURNIER APRN 719.46 KNEE PAIN 09/23/2011 KEELY CADENA PHD 719.46 KNEE PAIN 09/23/2011 VALDIVIA DO, JORDAN K 719.46 KNEE PAIN 09/23/2011 KEELY CADENA PHD 719.46 KNEE PAIN 09/23/2011 SURINDER CONKLIN, KEELY Bucio 719.46 KNEE PAIN 09/23/2011 VALDIVIA DO, JORDAN K 719.46 KNEE PAIN 09/23/2011 VALDIVIA DO, JORDAN K 719.46 KNEE PAIN 09/23/2011 RAFAEL HERNANDEZ APRN E 719.46 KNEE PAIN 09/23/2011 VALDIVIA DO, JORDAN K 719.46 KNEE PAIN 09/23/2011 VALDIVIA DO, JORDAN K 719.46 KNEE PAIN 09/23/2011 JONATHAN GOMEZ MD 719.46 KNEE PAIN 09/23/2011 RAFAEL HERNANDEZ APRN 719.46 KNEE PAIN 09/23/2011 SANDEE FOURNIER APRN 719.46 KNEE PAIN 09/23/2011 DORITA CORDOBA APRN A 719.46 KNEE PAIN 09/23/2011 VALDIVIA DO, JORDAN K 719.46 KNEE PAIN 09/23/2011 RAFAEL HERNANDEZ APRN E 719.46 KNEE PAIN 09/23/2011 VALDIVIA DO, JORDAN K 719.46 KNEE PAIN 09/23/2011 MAME REBOLLEDO APRN 719.46 KNEE PAIN 09/23/2011 VALDIVIA DO, JORDAN K 719.46 KNEE PAIN 09/23/2011 VALDIVIA DO, JORDAN K 719.46 KNEE PAIN 09/23/2011 VALDIVIA DO, JORDAN K 719.46 KNEE PAIN 09/23/2011 RAFAEL HERNANDEZ APRN E 719.46 KNEE PAIN 09/23/2011 VALDIVIA DO, JORDAN K 719.46 KNEE PAIN 09/23/2011 SANDEE FOURNIER APRN 719.46 KNEE PAIN 09/23/2011 VALDIVIA DO, JORDAN K 719.46 KNEE PAIN 09/27/2011 SURINDER CONKLIN, KELEY Bucio 698.9 UNSPECIFIED PRURITIC DISORDER 09/27/2011 BOEKHOUT PHD, KEELY A 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.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 09/27/2011 SANDEE FOURNIER APRN 698.9 UNSPECIFIED PRURITIC DISORDER 09/27/2011 SANDEE FOURNIER APRN 916.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 09/27/2011 698.9 UNSPECIFIED PRURITIC DISORDER 09/27/2011 916.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 09/27/2011 698.9 UNSPECIFIED PRURITIC DISORDER 09/27/2011 916.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 09/27/2011 698.9 UNSPECIFIED PRURITIC DISORDER 09/27/2011 916.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 09/27/2011 JORDAN VALDIVIA DO 698.9 UNSPECIFIED PRURITIC DISORDER 09/27/2011 JORDAN VALDIVIA DO 916.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 09/27/2011 698.9 UNSPECIFIED PRURITIC DISORDER 09/27/2011 916.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 09/27/2011 698.9 UNSPECIFIED PRURITIC DISORDER 09/27/2011 916.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 09/27/2011 698.9 UNSPECIFIED PRURITIC DISORDER 09/27/2011 916.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 09/27/2011 698.9 UNSPECIFIED PRURITIC DISORDER 09/27/2011 916.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 09/27/2011 698.9 UNSPECIFIED PRURITIC DISORDER 09/27/2011 916.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 09/27/2011 698.9 UNSPECIFIED PRURITIC DISORDER 09/27/2011 916.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 09/27/2011 SANDEE FOURNIER APRN 698.9 UNSPECIFIED PRURITIC DISORDER 09/27/2011 SANDEE FOURNIER APRN 916.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 09/27/2011 SURINDER PHD, KEELY A 698.9 UNSPECIFIED PRURITIC DISORDER 09/27/2011 [facility] PHD, KEELY A 916.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 09/27/2011 VALDIVIA DO, JORDAN K 698.9 UNSPECIFIED PRURITIC DISORDER 09/27/2011 VALDIVIA DO, JORDAN K 916.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 09/27/2011 [facility] PHD, KEELY A 698.9 UNSPECIFIED PRURITIC DISORDER 09/27/2011 [facility] PHD, KEELY A 916.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 09/27/2011 [facility] PHD, KEELY A 698.9 UNSPECIFIED PRURITIC DISORDER 09/27/2011 [facility] PHD, KEELY A 916.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 09/27/2011 VALDIVIA DO JORDAN K 698.9 UNSPECIFIED PRURITIC DISORDER 09/27/2011 VALDIVIA DO, JORDAN K 916.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 09/27/2011 VALDIVIA DO, JORDAN K 698.9 UNSPECIFIED PRURITIC DISORDER 09/27/2011 VALDIVIA DO, JORDAN K 916.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 09/27/2011 IRENE HERNANDEZ APRNE E 698.9 UNSPECIFIED PRURITIC DISORDER 09/27/2011 MONICA HERNANDEZ APRNSIE E 916.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 09/27/2011 VALDIVIA DO, JORDAN K 698.9 UNSPECIFIED PRURITIC DISORDER 09/27/2011 VALDIVIA DO, JORDAN K 916.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 09/27/2011 VALDIVIA DO, JORDAN K 698.9 UNSPECIFIED PRURITIC DISORDER 09/27/2011 VALDIVIA DO, JORDAN K 916.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 09/27/2011 JONATHAN GOMEZ MD 698.9 UNSPECIFIED PRURITIC DISORDER 09/27/2011 JONATHAN GOMEZ MD 916.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 09/27/2011 RAFAEL HERNANDEZ APRN 698.9 UNSPECIFIED PRURITIC DISORDER 09/27/2011 RAFAEL HERNANDEZ APRN 916.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 09/27/2011 SANDEE FOURNIER APRN 698.9 UNSPECIFIED PRURITIC DISORDER 09/27/2011 SANDEE FOURNIER APRN 916.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 09/27/2011 DORITA CORDOBA APRN A 698.9 UNSPECIFIED PRURITIC DISORDER 09/27/2011 DORITA CORDOBA APRN A 916.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 09/27/2011 VALDIVIA DO JORDAN K 698.9 UNSPECIFIED PRURITIC DISORDER 09/27/2011 VALDIVIA DO, JORDAN K 916.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 09/27/2011 RAFAEL HERNANDEZ APRN 698.9 UNSPECIFIED PRURITIC DISORDER 09/27/2011 RAFAEL HERNANDEZ APRN 916.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 09/27/2011 VALDIVIA DO, JORDAN K 698.9 UNSPECIFIED PRURITIC DISORDER 09/27/2011 VALDIVIA DO, JORDAN K 916.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 09/27/2011 MAME REBOLLEDO APRN R 698.9 UNSPECIFIED PRURITIC DISORDER 09/27/2011 MAME REBOLLEDO APRN R 916.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 09/27/2011 VALDIVIA DO, JORDAN K 698.9 UNSPECIFIED PRURITIC DISORDER 09/27/2011 VALDIVIA DO, JORDAN K 916.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 09/27/2011 VALDIVIA DO, JORDAN K 698.9 UNSPECIFIED PRURITIC DISORDER 09/27/2011 VALDIVIA DO, JORDAN K 916.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 09/27/2011 VALDIVIA DO, JORDAN K 698.9 UNSPECIFIED PRURITIC DISORDER 09/27/2011 VALDIVIA DOJORDAN K 916.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 09/27/2011 RAFAEL HERNANDEZ APRN 698.9 UNSPECIFIED PRURITIC DISORDER 09/27/2011 LUKERAFAEL BRANNON APRN E 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.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 09/27/2011 JORDAN VALDIVIA DO K 698.9 UNSPECIFIED PRURITIC DISORDER 09/27/2011 VALDIVIA DOJORDAN K 916.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 09/27/2011 SANDEE FOURNIER APRN 698.9 UNSPECIFIED PRURITIC DISORDER 09/27/2011 SANDEE FOURNIER APRN 916.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 09/27/2011 JORDAN VALDIVIA DO 698.9 UNSPECIFIED PRURITIC DISORDER 09/27/2011 JORDAN VALDIVIA DO 916.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 10/01/2011 SURINDER CONKLIN, KEELY A 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 BEHAVIOR 10/01/2011 SANDEE FOURNIER APRN 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 BEHAVIOR 10/01/2011 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 BEHAVIOR 10/01/2011 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 BEHAVIOR 10/01/2011 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 BEHAVIOR 10/01/2011 JORDAN VALDIVIA DO 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 BEHAVIOR 10/01/2011 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 BEHAVIOR 10/01/2011 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 BEHAVIOR 10/01/2011 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 BEHAVIOR 10/01/2011 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 BEHAVIOR 10/01/2011 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 BEHAVIOR 10/01/2011 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 BEHAVIOR 10/01/2011 SANDEE FOURNIER APRN 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 BEHAVIOR 10/01/2011 SURINDER CONKLIN, KEELY A 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 BEHAVIOR 10/01/2011 JORDAN VALDIVIA DO K 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 BEHAVIOR 10/01/2011 SURINDER CONKLIN, KEELY A 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 BEHAVIOR 10/01/2011 SURINDER CONKLIN, KEELY A 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 BEHAVIOR 10/01/2011 JORDAN VALDIVIA DO K 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 BEHAVIOR 10/01/2011 JORDAN VALDIVIA DO K 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 BEHAVIOR 10/01/2011 RAFAEL HERNANDEZ APRN 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 BEHAVIOR 10/01/2011 JORDAN VALDIVIA DO K 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 BEHAVIOR 10/01/2011 JORDAN VALDIVIA DO K 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 BEHAVIOR 10/01/2011 JONATHAN GOMEZ MD 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 BEHAVIOR 10/01/2011 RAFAEL HERNANDEZ APRN 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 BEHAVIOR 10/01/2011 SANDEE FOURNIER APRN 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 BEHAVIOR 10/01/2011 DORITA CORDOBA APRN A 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 BEHAVIOR 10/01/2011 JORDAN VALDIVIA DO K 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 BEHAVIOR 10/01/2011 RAFAEL HERNANDEZ APRN E 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 BEHAVIOR 10/01/2011 JORDAN VALDIVIA DO K 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 BEHAVIOR 10/01/2011 MAME REBOLLEDO APRN R 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 BEHAVIOR 10/01/2011 MONICA VALDIVIA DOA K 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 BEHAVIOR 10/01/2011 JORDAN VALDIVIA DO K 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 BEHAVIOR 10/01/2011 JORDAN VALDIVIA DO K 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 BEHAVIOR 10/01/2011 RAFAEL HERNANDEZ APRN E 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 BEHAVIOR 10/01/2011 JORDAN VALDIVIA DO 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 BEHAVIOR 10/01/2011 SANDEE FOURNIER APRN 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 BEHAVIOR 10/01/2011 JORDAN VALDIVIA DO 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 BEHAVIOR 10/23/2011 SURINDER CONKLIN, KEELY Bucio 847.9 SPRAIN/STRAIN BACK UNSPEC 10/23/2011 SANDEE FOURNIRE APRN 847.9 SPRAIN/STRAIN BACK UNSPEC 10/23/2011 847.9 SPRAIN/STRAIN BACK UNSPEC 10/23/2011 847.9 SPRAIN/STRAIN BACK UNSPEC 10/23/2011 847.9 SPRAIN/STRAIN BACK UNSPEC 10/23/2011 JORDAN VALDIVIA DO 847.9 SPRAIN/STRAIN BACK UNSPEC 10/23/2011 847.9 SPRAIN/STRAIN BACK UNSPEC 10/23/2011 847.9 SPRAIN/STRAIN BACK UNSPEC 10/23/2011 847.9 SPRAIN/STRAIN BACK UNSPEC 10/23/2011 847.9 SPRAIN/STRAIN BACK UNSPEC 10/23/2011 847.9 SPRAIN/STRAIN BACK UNSPEC 10/23/2011 847.9 SPRAIN/STRAIN BACK UNSPEC 10/23/2011 SANDEE FOURNIER APRN 847.9 SPRAIN/STRAIN BACK UNSPEC 10/23/2011 SURINDER PHD, KEELY Bucio 847.9 SPRAIN/STRAIN BACK UNSPEC 10/23/2011 JORDAN VALDIVIA DO 847.9 SPRAIN/STRAIN BACK UNSPEC 10/23/2011 SURINDER PHD, KEELY Bucio 847.9 SPRAIN/STRAIN BACK UNSPEC 10/23/2011 SURINDER PHD, KEELY Bucio 847.9 SPRAIN/STRAIN BACK UNSPEC 10/23/2011 JORDAN VALDIVIA DO 847.9 SPRAIN/STRAIN BACK UNSPEC 10/23/2011 JORDAN VALDIVIA DO 847.9 SPRAIN/STRAIN BACK UNSPEC 10/23/2011 RAFAEL HERNANDEZ APRN 847.9 SPRAIN/STRAIN BACK UNSPEC 10/23/2011 JORDAN VALDIVIA DO 847.9 SPRAIN/STRAIN BACK UNSPEC 10/23/2011 JORDAN VALDIVIA DO 847.9 SPRAIN/STRAIN BACK UNSPEC 10/23/2011 JASON GARCIA, JONATHAN 847.9 SPRAIN/STRAIN BACK UNSPEC 10/23/2011 RAFAEL HERANNDEZ APRN 847.9 SPRAIN/STRAIN BACK UNSPEC 10/23/2011 SANDEE FOURNIER APRN 847.9 SPRAIN/STRAIN BACK UNSPEC 10/23/2011 DORITA CORDOBA APRN 847.9 SPRAIN/STRAIN BACK UNSPEC 10/23/2011 VALDIVIA , JORDAN K 847.9 SPRAIN/STRAIN BACK UNSPEC 10/23/2011 RAFAEL EHRNANDEZ APRN 847.9 SPRAIN/STRAIN BACK UNSPEC 10/23/2011 VALDIVIA DO, JORDAN K 847.9 SPRAIN/STRAIN BACK UNSPEC 10/23/2011 MAME REBOLLEDO APRN 847.9 SPRAIN/STRAIN BACK UNSPEC 10/23/2011 VALDIVIA DOJODRAN 847.9 SPRAIN/STRAIN BACK UNSPEC 10/23/2011 VALDIVIA JORDAN LUIS 847.9 SPRAIN/STRAIN BACK UNSPEC 10/23/2011 VALDIVIA DO, JORDAN K 847.9 SPRAIN/STRAIN BACK UNSPEC 10/23/2011 RAFAEL HERNANDEZ APRN 847.9 SPRAIN/STRAIN BACK UNSPEC 10/23/2011 VALDIVIA , JORDAN K 847.9 SPRAIN/STRAIN BACK UNSPEC 10/23/2011 SANDEE FOURNIER APRN 847.9 SPRAIN/STRAIN BACK UNSPEC 10/23/2011 VALDIVIA JORDAN LUIS 847.9 SPRAIN/STRAIN BACK UNSPEC 10/31/2011 SURINDER PHD, KEELY A 296.80 MO BIPOLAR NOS 10/31/2011 SANDEE FOURNIER APRN 296.80 MO BIPOLAR NOS 10/31/2011 296.80 MO BIPOLAR NOS 10/31/2011 296.80 MO BIPOLAR NOS 10/31/2011 296.80 MO BIPOLAR NOS 10/31/2011 JORDAN VALDIVIA DO 296.80 MO BIPOLAR NOS 10/31/2011 296.80 MO BIPOLAR NOS 10/31/2011 296.80 MO BIPOLAR NOS 10/31/2011 296.80 MO BIPOLAR NOS 10/31/2011 296.80 MO BIPOLAR NOS 10/31/2011 296.80 MO BIPOLAR NOS 10/31/2011 296.80 MO BIPOLAR NOS 10/31/2011 SANDEE FOURNIER APRN 296.80 MO BIPOLAR NOS 10/31/2011 SURINDER PHD, KEELY Bucio 296.80 MO BIPOLAR NOS 10/31/2011 VALDIVIA DO, JORDAN K 296.80 MO BIPOLAR NOS 10/31/2011 SURINDER PHD, KEELY A 296.80 MO BIPOLAR NOS 10/31/2011 SURINDER PHD, KEELY A 296.80 MO BIPOLAR NOS 10/31/2011 VALDIVIA DO, JORDAN K 296.80 MO BIPOLAR NOS 10/31/2011 VALDIVIA DO, JORDAN K 296.80 MO BIPOLAR NOS 10/31/2011 RAFAEL HERNANDEZ APRN E 296.80 MO BIPOLAR NOS 10/31/2011 VALDIVIA DO, JORDAN K 296.80 MO BIPOLAR NOS 10/31/2011 VALDIVIA DO, JORDAN K 296.80 MO BIPOLAR NOS 10/31/2011 JONATHAN GOMEZ MD 296.80 MO BIPOLAR NOS 10/31/2011 RAFAEL HERNANDEZ APRN E 296.80 MO BIPOLAR NOS 10/31/2011 SANDEE FOURNIER APRN R 296.80 MO BIPOLAR NOS 10/31/2011 DORITA CORDOBA APRN A 296.80 MO BIPOLAR NOS 10/31/2011 VALDIVIA DO, JORDAN K 296.80 MO BIPOLAR NOS 10/31/2011 IRENE HERNANDEZ APRNE E 296.80 MO BIPOLAR NOS 10/31/2011 VALDIVIA DO, JORDAN K 296.80 MO BIPOLAR NOS 10/31/2011 MAME REBOLLEDO APRN 296.80 MO BIPOLAR NOS 10/31/2011 VALDIVIA DO, JORDAN K 296.80 MO BIPOLAR NOS 10/31/2011 VALDIVIA DO, JORDAN K 296.80 MO BIPOLAR NOS 10/31/2011 VALDIVIA DO, JORDAN K 296.80 MO BIPOLAR NOS 10/31/2011 MONICA HERNANDEZ APRNSIE E 296.80 MO BIPOLAR NOS 10/31/2011 VALDIVIA DO, JORDAN K 296.80 MO BIPOLAR NOS 10/31/2011 SANDEE FOURNIER APRN 296.80 MO BIPOLAR NOS 10/31/2011 VALDIVIA DO, JORDAN K 296.80 MO BIPOLAR NOS 11/06/2011 SURINDER PHD, KEELY Bucio 493.90 ASTHMA 11/06/2011 SANDEE FOURNIER APRN 493.90 ASTHMA 11/06/2011 493.90 ASTHMA 11/06/2011 493.90 ASTHMA 11/06/2011 493.90 ASTHMA 11/06/2011 VALDIVIA DO, JORDAN K 493.90 ASTHMA 11/06/2011 493.90 ASTHMA 11/06/2011 493.90 ASTHMA 11/06/2011 493.90 ASTHMA 11/06/2011 493.90 ASTHMA 11/06/2011 493.90 ASTHMA 11/06/2011 493.90 ASTHMA 11/06/2011 SANDEE FOURNIER APRN 493.90 ASTHMA 11/06/2011 SURINDER PHD, KEELY Bucio 493.90 ASTHMA 11/06/2011 VALDIVIA DO, JORDAN K 493.90 ASTHMA 11/06/2011 SURINDER PHD, KEELY Bucio 493.90 ASTHMA 11/06/2011 SURINDER PHD, KEELY Bucio 493.90 ASTHMA 11/06/2011 VALDIVIA DO, JORDAN K 493.90 ASTHMA 11/06/2011 VALDIVIA DO, JORDAN K 493.90 ASTHMA 11/06/2011 RAFAEL HERNANDEZ APRN E 493.90 ASTHMA 11/06/2011 VALDIVIA DO, JORDAN K 493.90 ASTHMA 11/06/2011 VALDIVIA DO, JORDAN K 493.90 ASTHMA 11/06/2011 JONATHAN GOMEZ MD 493.90 ASTHMA 11/06/2011 RAFAEL HERNANDEZ APRN E 493.90 ASTHMA 11/06/2011 SANDEE FOURNIER APRN 493.90 ASTHMA 11/06/2011 DORITA CORDOBA APRN 493.90 ASTHMA 11/06/2011 VALDIVIA DO, JORDAN K 493.90 ASTHMA 11/06/2011 RAFAEL HERNANDEZ APRN 493.90 ASTHMA 11/06/2011 VALDIVIA DO, JORDAN K 493.90 ASTHMA 11/06/2011 MAME REBOLLEDO APRN 493.90 ASTHMA 11/06/2011 VALDIVIA DO, JORDAN K 493.90 ASTHMA 11/06/2011 VALDIVIA DO, JORDAN K 493.90 ASTHMA 11/06/2011 VALDIVIA DO, JORDAN K 493.90 ASTHMA 11/06/2011 MONICA HERNANDEZ APRNSIE E 493.90 ASTHMA 11/06/2011 VALDIVIA DO, JORDAN K 493.90 ASTHMA 11/06/2011 SANDEE FOURNIER APRN 493.90 ASTHMA 11/06/2011 VALDIVIA DO, JORDAN K 493.90 ASTHMA 11/25/2011 SURINDER CONKLIN, KEELY A 285.9 ANEMIA 11/25/2011 SANDEE FOURNIER APRN 285.9 ANEMIA 11/25/2011 285.9 ANEMIA 11/25/2011 285.9 ANEMIA 11/25/2011 285.9 ANEMIA 11/25/2011 VALDIVIA DO, JORDAN K 285.9 ANEMIA 11/25/2011 285.9 ANEMIA 11/25/2011 285.9 ANEMIA 11/25/2011 285.9 ANEMIA 11/25/2011 285.9 ANEMIA 11/25/2011 285.9 ANEMIA 11/25/2011 285.9 ANEMIA 11/25/2011 SANDEE FOURNIER APRN 285.9 ANEMIA 11/25/2011 SURINDER PHD, KEELY A 285.9 ANEMIA 11/25/2011 VALDIVIA DO, JORDAN K 285.9 ANEMIA 11/25/2011 SURINDER PHD, KEELY A 285.9 ANEMIA 11/25/2011 SURINDER CONKLIN, KEELY A 285.9 ANEMIA 11/25/2011 VALDIVIA DO, JORDAN K 285.9 ANEMIA 11/25/2011 VALDIIVA DO, JORDAN K 285.9 ANEMIA 11/25/2011 RAFAEL HERNANDEZ APRN E 285.9 ANEMIA 11/25/2011 VALDIVIA DO, JORDAN K 285.9 ANEMIA 11/25/2011 VALDIVIA DO, JORDAN K 285.9 ANEMIA 11/25/2011 JONATHAN GOMEZ MD 285.9 ANEMIA 11/25/2011 RAFAEL HERNANDEZ APRN E 285.9 ANEMIA 11/25/2011 SANDEE FOURNIER APRN 285.9 ANEMIA 11/25/2011 DORITA CORDOBA APRN A 285.9 ANEMIA 11/25/2011 VALDIVIA DO, JORDAN K 285.9 ANEMIA 11/25/2011 IRENE HERNANDEZ APRNE E 285.9 ANEMIA 11/25/2011 VALDIVIA DO, JORDAN K 285.9 ANEMIA 11/25/2011 MAME REBOLLEDO APRN 285.9 ANEMIA 11/25/2011 VALDIVIA DO, JORDAN K 285.9 ANEMIA 11/25/2011 VALDIVIA DO, JORDAN K 285.9 ANEMIA 11/25/2011 VALDIVIA DO, JORDAN K 285.9 ANEMIA 11/25/2011 IRNEE HERNANDEZ APRNE E 285.9 ANEMIA 11/25/2011 VALDIVIA DO, JORDAN K 285.9 ANEMIA 11/25/2011 SANDEE FOURNIER APRN 285.9 ANEMIA 11/25/2011 VALDIVIA DO, JORDAN K 285.9 ANEMIA 12/16/2011 SURINDER PHD, KEELY Bucio 787.03 vomiting 12/16/2011 SANDEE FOURNIER APRN 787.03 vomiting 12/16/2011 787.03 vomiting 12/16/2011 787.03 vomiting 12/16/2011 787.03 vomiting 12/16/2011 VALDIVIA DO, JORDAN K 787.03 vomiting 12/16/2011 787.03 vomiting 12/16/2011 787.03 vomiting 12/16/2011 787.03 vomiting 12/16/2011 787.03 vomiting 12/16/2011 787.03 vomiting 12/16/2011 787.03 vomiting 12/16/2011 SANDEE FOURNIER APRN 787.03 vomiting 12/16/2011 SURINDER PHD, KEELY A 787.03 vomiting 12/16/2011 VALDIVIA DO, JORDAN K 787.03 vomiting 12/16/2011 SURINDER PHD, KEELY A 787.03 vomiting 12/16/2011 SURINDER PHD, KEELY A 787.03 vomiting 12/16/2011 VALDIVIA DO, JORDAN K 787.03 vomiting 12/16/2011 VALDIVIA DO, JORDAN K 787.03 vomiting 12/16/2011 ARFAEL HERNANDEZ APRN 787.03 vomiting 12/16/2011 VALDIVIA DO, JORDAN K 787.03 vomiting 12/16/2011 VALDIVIA DO, JORDAN K 787.03 vomiting 12/16/2011 JONATHAN GOMEZ MD 787.03 vomiting 12/16/2011 RAFAEL HERNANDEZ APRN 787.03 vomiting 12/16/2011 SANDEE FOURNIER APRN 787.03 vomiting 12/16/2011 DORITA CORDOBA APRN 787.03 vomiting 12/16/2011 VALDIVIA DO, JORDAN K 787.03 vomiting 12/16/2011 RAFAEL HERNANDEZ APRN 787.03 vomiting 12/16/2011 VALDIVIA DO, JORDAN K 787.03 vomiting 12/16/2011 MAME REBOLLEDO APRN 787.03 vomiting 12/16/2011 VALDIVIA DO, JORDAN K 787.03 VOMITING 12/16/2011 JORDAN VALDIVIA DO 787.03 VOMITING 12/16/2011 SHEA LUISJORDAN 787.03 VOMITING 12/16/2011 RAFAEL HERNANDEZ APRN 787.03 VOMITING 12/16/2011 SHEA LUISJORDAN 787.03 VOMITING 12/16/2011 SANDEE FOURNIER APRN 787.03 VOMITING 12/16/2011 JORDAN VALDIVIA DO 787.03 VOMITING 12/30/2011 SURINDER CONKLIN, KEELY Bucio 296.89 MO BIPOLAR II 12/30/2011 SURINDER PHD, KEELY Bucio 309.81 AN PTSD 12/30/2011 SANDEE FOURNIER APRN 296.89 MO BIPOLAR II 12/30/2011 SANDEE FOURNIER APRN 309.81 AN PTSD 12/30/2011 296.89 MO BIPOLAR II 12/30/2011 309.81 AN PTSD 12/30/2011 296.89 MO BIPOLAR II 12/30/2011 309.81 AN PTSD 12/30/2011 296.89 MO BIPOLAR II 12/30/2011 309.81 AN PTSD 12/30/2011 JORDAN VALDIVIA DO 296.89 MO BIPOLAR II 12/30/2011 JORDAN VALDIVIA DO 309.81 AN PTSD 12/30/2011 296.89 MO BIPOLAR II 12/30/2011 309.81 AN PTSD 12/30/2011 296.89 MO BIPOLAR II 12/30/2011 309.81 AN PTSD 12/30/2011 296.89 MO BIPOLAR II 12/30/2011 309.81 AN PTSD 12/30/2011 296.89 MO BIPOLAR II 12/30/2011 309.81 AN PTSD 12/30/2011 296.89 MO BIPOLAR II 12/30/2011 309.81 AN PTSD 12/30/2011 296.89 MO BIPOLAR II 12/30/2011 309.81 AN PTSD 12/30/2011 SANDEE FOURNIER APRN 296.89 MO BIPOLAR II 12/30/2011 SANDEE FOURNIER APRN 309.81 AN PTSD 12/30/2011 KELEY CADENA PHD 296.89 MO BIPOLAR II 12/30/2011 KEELY CADENA PHD 309.81 AN PTSD 12/30/2011 JORDAN VALDIVIA DO 296.89 MO BIPOLAR II 12/30/2011 VALDIVIA DO, JORDAN K 309.81 AN PTSD 12/30/2011 SURINDER PHD, KEELY A 296.89 MO BIPOLAR II 12/30/2011 [facility] A 309.81 AN PTSD 12/30/2011 SURINDER PHD, KEELY A 296.89 MO BIPOLAR II 12/30/2011 SURINDER PHD, KEELY A 309.81 AN PTSD 12/30/2011 VALDIVIA DO, JORDAN K 296.89 MO BIPOLAR II 12/30/2011 VALDIVIA DO, JORDAN K 309.81 AN PTSD 12/30/2011 VALDIVIA DO, JORDAN K 296.89 MO BIPOLAR II 12/30/2011 VALDIVIA DO, JORDAN K 309.81 AN PTSD 12/30/2011 IRENE HERNANDEZ APRNE E 296.89 MO BIPOLAR II 12/30/2011 MONICA HERNANDEZ APRNSIE E 309.81 AN PTSD 12/30/2011 VALDIVIA DO JORDAN K 296.89 MO BIPOLAR II 12/30/2011 VALDIVIA DO JORDAN K 309.81 AN PTSD 12/30/2011 VALDIVIA DO JORDAN K 296.89 MO BIPOLAR II 12/30/2011 VALDIVIA DO, JORDAN K 309.81 AN PTSD 12/30/2011 JONATHAN GOMEZ MD 296.89 MO BIPOLAR II 12/30/2011 JONATHAN GOMEZ MD 309.81 AN PTSD 12/30/2011 RAFAEL HERNANDEZ APRN E 296.89 MO BIPOLAR II 12/30/2011 MONICA HERNANDEZ APRNSIE E 309.81 AN PTSD 12/30/2011 SANDEE FOURNIER APRN R 296.89 MO BIPOLAR II 12/30/2011 SANDEE FOURNIER APRN R 309.81 AN PTSD 12/30/2011 BERYL DE PAZ DORITA A 296.89 MO BIPOLAR II 12/30/2011 BERYL DE PAZ DORITA A 309.81 AN PTSD 12/30/2011 VALDIVIA DO JORDAN K 296.89 MO BIPOLAR II 12/30/2011 VALDIVIA DO JORDAN K 309.81 AN PTSD 12/30/2011 DAVID DE PAZ RAFAEL E 296.89 MO BIPOLAR II 12/30/2011 MONICA HERNANDEZ APRNSIE E 309.81 AN PTSD 12/30/2011 VALDIVIA DO JORDAN K 296.89 MO BIPOLAR II 12/30/2011 VALDIVIA DO, JORDAN K 309.81 AN PTSD 12/30/2011 REBOLLEDO SUPERVISOR GELATIN PLANTWILFREDOMAME R 296.89 MO BIPOLAR II 12/30/2011 REBOLLEDO MARSHA DE PAZIA R 309.81 AN PTSD 12/30/2011 VALDIVIA DO, JORDAN K 296.89 MO BIPOLAR II 12/30/2011 VALDIVIA DO, JORDAN K 309.81 AN PTSD 12/30/2011 VALDIVIA DO, JORDAN K 296.89 MO BIPOLAR II 12/30/2011 VALDIVIA DO, JORDAN K 309.81 AN PTSD 12/30/2011 VALDIVIA DO, JORDAN K 296.89 MO BIPOLAR II 12/30/2011 VALDIVIA DO, JORDAN K 309.81 AN PTSD 12/30/2011 HELLMONICA CODY APRNSIE E 296.89 MO BIPOLAR II 12/30/2011 HELMONICA BRANNON APRNSIE E 309.81 AN PTSD 12/30/2011 VALDIVIA DO, JORDAN K 296.89 MO BIPOLAR II 12/30/2011 VALDIVIA DO, JORADN K 309.81 AN PTSD 12/30/2011 SANDEE FOURNIER APRN 296.89 MO BIPOLAR II 12/30/2011 SANDEE FOURNIER APRN 309.81 AN PTSD 12/30/2011 VALDIVIA DO, JORDAN K 296.89 MO BIPOLAR II 12/30/2011 VALDIVIA DO, JORDAN K 309.81 AN PTSD 01/08/2012 SURINDER PHD, KEELY A 611.72 BREAST LUMP OR MASS LEFT 01/08/2012 SANDEE FOURNIER APRN 611.72 BREAST LUMP OR MASS LEFT 01/08/2012 611.72 BREAST LUMP OR MASS LEFT 01/08/2012 611.72 BREAST LUMP OR MASS LEFT 01/08/2012 611.72 BREAST LUMP OR MASS LEFT 01/08/2012 JORDAN VALDIVIA DO 611.72 BREAST LUMP OR MASS LEFT 01/08/2012 611.72 BREAST LUMP OR MASS LEFT 01/08/2012 611.72 BREAST LUMP OR MASS LEFT 01/08/2012 611.72 BREAST LUMP OR MASS LEFT 01/08/2012 611.72 BREAST LUMP OR MASS LEFT 01/08/2012 611.72 BREAST LUMP OR MASS LEFT 01/08/2012 611.72 BREAST LUMP OR MASS LEFT 01/08/2012 SANDEE FOURNIER APRN 611.72 BREAST LUMP OR MASS LEFT 01/08/2012 SURINDER CONKLIN, KEELY A 611.72 BREAST LUMP OR MASS LEFT 01/08/2012 VALDIVIA DO, JORDAN K 611.72 BREAST LUMP OR MASS LEFT 01/08/2012 [facility] PHD, KEELY A 611.72 BREAST LUMP OR MASS LEFT 01/08/2012 SURINDER PHD, KEELY A 611.72 BREAST LUMP OR MASS LEFT 01/08/2012 VALDIVIA DO, JORDAN K 611.72 BREAST LUMP OR MASS LEFT 01/08/2012 VALDIVIA DO, JORDAN K 611.72 BREAST LUMP OR MASS LEFT 01/08/2012 RAFAEL HERNANDEZ APRN E 611.72 BREAST LUMP OR MASS LEFT 01/08/2012 VALDIVIA DO, JORDAN K 611.72 BREAST LUMP OR MASS LEFT 01/08/2012 VALDIVIA DO, JORDAN K 611.72 BREAST LUMP OR MASS LEFT 01/08/2012 JONATHAN GOMEZ MD 611.72 BREAST LUMP OR MASS LEFT 01/08/2012 RAFAEL HERNANDEZ APRN E 611.72 BREAST LUMP OR MASS LEFT 01/08/2012 SANDEE FOURNIER APRN 611.72 BREAST LUMP OR MASS LEFT 01/08/2012 DORITA CORDOBA APRN A 611.72 BREAST LUMP OR MASS LEFT 01/08/2012 VALDIVIA DO, JORDAN K 611.72 BREAST LUMP OR MASS LEFT 01/08/2012 RAFAEL HERNANDEZ APRN E 611.72 BREAST LUMP OR MASS LEFT 01/08/2012 VALDIVIA DO, JORDAN K 611.72 BREAST LUMP OR MASS LEFT 01/08/2012 MAME REBOLLEDO APRN 611.72 BREAST LUMP OR MASS LEFT 01/08/2012 VALDIVIA DO, JORDAN K 611.72 BREAST LUMP OR MASS LEFT 01/08/2012 VALDIVIA DO, JORDAN K 611.72 BREAST LUMP OR MASS LEFT 01/08/2012 VALDIVIA DO, JORDAN K 611.72 BREAST LUMP OR MASS LEFT 01/08/2012 MONICA HERNANDEZ APRNSIE E 611.72 BREAST LUMP OR MASS LEFT 01/08/2012 VALDIVIA DO, JORDAN K 611.72 BREAST LUMP OR MASS LEFT 01/08/2012 SANDEE FOURNIER APRN 611.72 BREAST LUMP OR MASS LEFT 01/08/2012 SHEA LUIS, JORDAN Casanova 611.72 BREAST LUMP OR MASS LEFT 02/03/2012 SURINDER PHD, KEELY Bucio 386.10 VERTIGO, PERIPHERAL UNSPECIFIED 02/03/2012 SANDEE FOURNIER APRN 386.10 VERTIGO, PERIPHERAL UNSPECIFIED 02/03/2012 386.10 VERTIGO, PERIPHERAL UNSPECIFIED 02/03/2012 386.10 VERTIGO, PERIPHERAL UNSPECIFIED 02/03/2012 386.10 VERTIGO, PERIPHERAL UNSPECIFIED 02/03/2012 JORDAN VALDIVIA DO 386.10 VERTIGO, PERIPHERAL UNSPECIFIED 02/03/2012 386.10 VERTIGO, PERIPHERAL UNSPECIFIED 02/03/2012 386.10 VERTIGO, PERIPHERAL UNSPECIFIED 02/03/2012 386.10 VERTIGO, PERIPHERAL UNSPECIFIED 02/03/2012 386.10 VERTIGO, PERIPHERAL UNSPECIFIED 02/03/2012 386.10 VERTIGO, PERIPHERAL UNSPECIFIED 02/03/2012 386.10 VERTIGO, PERIPHERAL UNSPECIFIED 02/03/2012 SANDEE FOURNIER APRN 386.10 VERTIGO, PERIPHERAL UNSPECIFIED 02/03/2012 SURINDER PHD, KEELY Bucio 386.10 VERTIGO, PERIPHERAL UNSPECIFIED 02/03/2012 JORDAN VALDIVIA DO 386.10 VERTIGO, PERIPHERAL UNSPECIFIED 02/03/2012 SURINDER PHD, KEELY Bucio 386.10 VERTIGO, PERIPHERAL UNSPECIFIED 02/03/2012 SURINDER PHD, KEELY Bucio 386.10 VERTIGO, PERIPHERAL UNSPECIFIED 02/03/2012 JORDAN VALDIVIA DO 386.10 VERTIGO, PERIPHERAL UNSPECIFIED 02/03/2012 VALDIVIA MONICA LUISA K 386.10 VERTIGO, PERIPHERAL UNSPECIFIED 02/03/2012 RAFAEL HERNANDEZ APRN 386.10 VERTIGO, PERIPHERAL UNSPECIFIED 02/03/2012 JORDAN VALDIVIA DO K 386.10 VERTIGO, PERIPHERAL UNSPECIFIED 02/03/2012 VALDIVIA MONICA LUISA K 386.10 VERTIGO, PERIPHERAL UNSPECIFIED 02/03/2012 JASON GARCIA, JONATHAN 386.10 VERTIGO, PERIPHERAL UNSPECIFIED 02/03/2012 RAFAEL HERNANDEZ APRN 386.10 VERTIGO, PERIPHERAL UNSPECIFIED 02/03/2012 SANDEE FOURNIER APRN 386.10 VERTIGO, PERIPHERAL UNSPECIFIED 02/03/2012 DORITA CORDOBA APRN 386.10 VERTIGO, PERIPHERAL UNSPECIFIED 02/03/2012 VALDIVIA DO, JORDAN K 386.10 VERTIGO, PERIPHERAL UNSPECIFIED 02/03/[address] [address] [facility] APRN 386.10 VERTIGO, PERIPHERAL UNSPECIFIED 02/03/2012 VALDIVIA DO, JORDAN K 386.10 VERTIGO, PERIPHERAL UNSPECIFIED 02/03/2012 MAME REBOLLEDO APRN 386.10 VERTIGO, PERIPHERAL UNSPECIFIED 02/03/2012 VALDIVIA DO, JORDAN K 386.10 VERTIGO, PERIPHERAL UNSPECIFIED 02/03/2012 VALDIVIA DO, JORDAN K 386.10 VERTIGO, PERIPHERAL UNSPECIFIED 02/03/2012 VALDIVIA DO, JORDAN K 386.10 VERTIGO, PERIPHERAL UNSPECIFIED 02/03/2012 LUKERAFAEL CODY APRN E 386.10 VERTIGO, PERIPHERAL UNSPECIFIED 02/03/2012 VALDIVIA DO, JORDAN K 386.10 VERTIGO, PERIPHERAL UNSPECIFIED 02/03/2012 SANDEE FOURNIER APRN 386.10 VERTIGO, PERIPHERAL UNSPECIFIED 02/03/2012 VALDIVIA DO, JORDAN K 386.10 VERTIGO, PERIPHERAL UNSPECIFIED 02/12/2012 SURINDER PHD, KEELY Bucio 307.81 HEADACHE, TENSION 02/12/2012 SANDEE FOURNIER APRN 307.81 HEADACHE, TENSION 02/12/2012 307.81 HEADACHE, TENSION 02/12/2012 307.81 HEADACHE, TENSION 02/12/2012 307.81 HEADACHE, TENSION 02/12/2012 JORDAN VALDIVIA DO 307.81 HEADACHE, TENSION 02/12/2012 307.81 HEADACHE, TENSION 02/12/2012 307.81 HEADACHE, TENSION 02/12/2012 307.81 HEADACHE, TENSION 02/12/2012 307.81 HEADACHE, TENSION 02/12/2012 307.81 HEADACHE, TENSION 02/12/2012 307.81 HEADACHE, TENSION 02/12/2012 SANDEE FOURNIER APRN 307.81 HEADACHE, TENSION 02/12/2012 SURINDER CONKLIN, KEELY Bucio 307.81 HEADACHE, TENSION 02/12/2012 JORDAN VALDIVIA DO 307.81 HEADACHE, TENSION 02/12/2012 SURINDER CONKLIN, KEELY Bucio 307.81 HEADACHE, TENSION 02/12/2012 SURINDER CONKLIN, KEELY Bucio 307.81 HEADACHE, TENSION 02/12/2012 VALDIVIA DO, JORDAN K 307.81 HEADACHE, TENSION 02/12/2012 VALDIVIA DO, JORDAN K 307.81 HEADACHE, TENSION 02/12/2012 IRENE HERNANDEZ APRNE E 307.81 HEADACHE, TENSION 02/12/2012 VALDIVIA DO, JORDAN K 307.81 HEADACHE, TENSION 02/12/2012 VALDIVIA DO, JORDAN K 307.81 HEADACHE, TENSION 02/12/2012 JASON GARCIA, JONATHAN 307.81 HEADACHE, TENSION 02/12/2012 RAFAEL HERNANDEZ APRN 307.81 HEADACHE, TENSION 02/12/2012 SANDEE FOURNIER APRN 307.81 HEADACHE, TENSION 02/12/2012 DORITA CORDOBA APRN 307.81 HEADACHE, TENSION 02/12/2012 VALDIVIA DO, JORDAN K 307.81 HEADACHE, TENSION 02/12/2012 RAFAEL HERNANDEZ APRN E 307.81 HEADACHE, TENSION 02/12/2012 VALDIVIA DO, JORDAN K 307.81 HEADACHE, TENSION 02/12/2012 MAME REBOLLEDO APRN 307.81 HEADACHE, TENSION 02/12/2012 VALDIVIA DO, JORDAN K 307.81 HEADACHE, TENSION 02/12/2012 VALDIVIA DO, JORDAN K 307.81 HEADACHE, TENSION 02/12/2012 VALDIVIA DO, JORDAN K 307.81 HEADACHE, TENSION 02/12/2012 RAFAEL HERNANDEZ APRN E 307.81 HEADACHE, TENSION 02/12/2012 VALDIVIA DO, JORDAN K 307.81 HEADACHE, TENSION 02/12/2012 SANDEE FOURNIER APRN 307.81 HEADACHE, TENSION 02/12/2012 VALDIVIA DO, JORDAN K 307.81 HEADACHE, TENSION 04/23/2012 SURINDER CONKLIN, KEELY Bucio V25.02 Contraceptives 04/23/2012 SURINDER CONKLIN, KEELY Bucio V74.5 STD SCREEN 04/23/2012 SANDEE FOURNIER APRN V25.02 Contraceptives 04/23/2012 SANDEE FOURNIER APRN V74.5 STD SCREEN 04/23/2012 V25.02 Contraceptives 04/23/2012 V74.5 STD SCREEN 04/23/2012 V25.02 Contraceptives 04/23/2012 V74.5 STD SCREEN 04/23/2012 V25.02 Contraceptives 04/23/2012 V74.5 STD SCREEN 04/23/2012 VALDIVIA DO, JORDAN K V25.02 Contraceptives 04/23/2012 VALDIVIA DO, JORDAN K V74.5 STD SCREEN 04/23/2012 V25.02 Contraceptives 04/23/2012 V74.5 STD SCREEN 04/23/2012 V25.02 Contraceptives 04/23/2012 V74.5 STD SCREEN 04/23/2012 V25.02 Contraceptives 04/23/2012 V74.5 STD SCREEN 04/23/2012 V25.02 Contraceptives 04/23/2012 V74.5 STD SCREEN 04/23/2012 V25.02 Contraceptives 04/23/2012 V74.5 STD SCREEN 04/23/2012 V25.02 Contraceptives 04/23/2012 V74.5 STD SCREEN 04/23/2012 SANDEE FOURNIER APRN V25.02 Contraceptives 04/23/2012 SANDEE FOURNIER APRN V74.5 STD SCREEN 04/23/2012 SURINDER CONKLIN, KEELY Bucio V25.02 Contraceptives 04/23/2012 SURINDER CONKLIN, KEELY Bucio V74.5 STD SCREEN 04/23/2012 VALDIVIA JORDAN LUIS V25.02 Contraceptives 04/23/2012 VALDIVIA DOJORDAN K V74.5 STD SCREEN 04/23/2012 SURINDER CONKLIN, KEELY Bucio V25.02 Contraceptives 04/23/2012 SURINDER CONKLIN, KEELY Bucio V74.5 STD SCREEN 04/23/2012 SURINDER PHD, KEELY Bucio V25.02 Contraceptives 04/23/2012 SURINDER CONKLIN, KEELY Bucio V74.5 STD SCREEN 04/23/2012 VALDIVIA DO, JORDAN K V25.02 Contraceptives 04/23/2012 VALDIVIA DO, JORDAN K V74.5 STD SCREEN 04/23/2012 VALDIVIA DO, JORDAN K V25.02 Contraceptives 04/23/2012 VALDIVIA DO, JORDAN K V74.5 STD SCREEN 04/23/2012 RAFAEL HERNANDEZ APRN V25.02 Contraceptives 04/23/2012 RAFAEL HERNANDEZ APRN V74.5 STD SCREEN 04/23/2012 VALDIVIA DO, JORDAN K V25.02 Contraceptives 04/23/2012 VALDIVIA DO, JORDAN K V74.5 STD SCREEN 04/23/2012 VALDIVIA DO, JORDAN K V25.02 Contraceptives 04/23/2012 VALDIVIA DO, JORDAN K V74.5 STD SCREEN 04/23/2012 JASON GARCIA, JONATHAN V25.02 Contraceptives 04/23/2012 JONATHAN GOMEZ MD V74.5 STD SCREEN 04/23/2012 RAFAEL HERNANDEZ APRN E V25.02 Contraceptives 04/23/2012 RAFAEL HERNANDEZ APRN E V74.5 STD SCREEN 04/23/2012 SANDEE FOURNIER APRN V25.02 Contraceptives 04/23/2012 SANDEE FOURNIER APRN V74.5 STD SCREEN 04/23/2012 DORITA CORDOBA APRN A V25.02 Contraceptives 04/23/2012 DORITA CORDOBA APRN A V74.5 STD SCREEN 04/23/2012 VALDIVIA DO, JORDAN K V25.02 Contraceptives 04/23/2012 VALDIVIA DO, JORDAN K V74.5 STD SCREEN 04/23/2012 RAFAEL HERNANDEZ APRN E V25.02 Contraceptives 04/23/2012 RAFAEL HERNANDEZ APRN E V74.5 STD SCREEN 04/23/2012 VALDIVIA DO, JORDAN K V25.02 Contraceptives 04/23/2012 VALDIVIA DO, JORDAN K V74.5 STD SCREEN 04/23/2012 KESHA DE PAZ MAME R V25.02 Contraceptives 04/23/2012 KESHA DE PAZ, MAME R V74.5 STD SCREEN 04/23/2012 AVLDIVIA DO, JORDAN K V25.02 Contraceptives 04/23/2012 VALDIVIA DO, JORDAN K V74.5 STD SCREEN 04/23/2012 VALDIVIA DO, JORDAN K V25.02 Contraceptives 04/23/2012 VALDIVIA DO, JORDAN K V74.5 STD SCREEN 04/23/2012 VALDIVIA DO, JORDAN K V25.02 Contraceptives 04/23/2012 VALDIVIA DO, JORDAN K V74.5 STD SCREEN 04/23/2012 MONICA HERNANDEZ APRNSIE E V25.02 Contraceptives 04/23/2012 MONICA HERNANDEZ APRNSIE E V74.5 STD SCREEN 04/23/2012 VALDIVIA DO, JORDAN K V25.02 Contraceptives 04/23/2012 VALDIVIA DO, JORDAN K V74.5 STD SCREEN 04/23/2012 SANDEE FOURNIER APRN V25.02 Contraceptives 04/23/2012 SANDEE FOURNIER APRN V74.5 STD SCREEN 04/23/2012 VALDIVIA JORDAN LUIS K V25.02 CONTRACEPTIVES 04/23/2012 VALDIVIA DO, JORDAN K V74.5 STD SCREEN 05/13/2012 SANDEE FOURNIER APRN 461.9 SINUSITIS ACUTE 05/13/2012 461.9 SINUSITIS ACUTE 05/13/2012 461.9 SINUSITIS ACUTE 05/13/2012 461.9 SINUSITIS ACUTE 05/13/2012 SHEA DOJORDAN K 461.9 SINUSITIS ACUTE 05/13/2012 461.9 SINUSITIS ACUTE 05/13/2012 461.9 SINUSITIS ACUTE 05/13/2012 461.9 SINUSITIS ACUTE 05/13/2012 461.9 SINUSITIS ACUTE 05/13/2012 461.9 SINUSITIS ACUTE 05/13/2012 461.9 SINUSITIS ACUTE 05/13/2012 SANDEE FOURNIER APRN 461.9 SINUSITIS ACUTE 05/13/2012 SURINDER PHD, KEELY Bucio 461.9 SINUSITIS ACUTE 05/13/2012 VALDIVIA DO, JORDAN K 461.9 SINUSITIS ACUTE 05/13/2012 SURINDER PHD, KEELY A 461.9 SINUSITIS ACUTE 05/13/2012 SURINDER CONKLIN, KEELY A 461.9 SINUSITIS ACUTE 05/13/2012 MONIAC VALDIVIA DOA K 461.9 SINUSITIS ACUTE 05/13/2012 SHEA DOMONICAA K 461.9 SINUSITIS ACUTE 05/13/2012 RAFAEL HERNANDEZ APRN 461.9 SINUSITIS ACUTE 05/13/2012 VALDIVIA DOMONICAA K 461.9 SINUSITIS ACUTE 05/13/2012 VALDIVIA DOMONICAA K 461.9 SINUSITIS ACUTE 05/13/2012 JONATHAN GOMEZ MD 461.9 SINUSITIS ACUTE 05/13/2012 RAFAEL HERNANDEZ APRN 461.9 SINUSITIS ACUTE 05/13/2012 SANDEE FOURNIER APRN 461.9 SINUSITIS ACUTE 05/13/2012 DORITA CORDOBA APRN 461.9 SINUSITIS ACUTE 05/13/2012 VALDIVIA DO, OJRDAN K 461.9 SINUSITIS ACUTE 05/13/2012 RAFAEL HERNANDEZ APRN E 461.9 SINUSITIS ACUTE 05/13/2012 VALDIVIA DO, JORDAN K 461.9 SINUSITIS ACUTE 05/13/2012 MAME REBOLLEDO APRN 461.9 SINUSITIS ACUTE 05/13/2012 VALDIVIA DO, JORDAN K 461.9 SINUSITIS ACUTE 05/13/2012 VALDIVIA DO, JORDAN K 461.9 SINUSITIS ACUTE 05/13/2012 VALDIVIA DO, JORDAN K 461.9 SINUSITIS ACUTE 05/13/2012 RAFAEL HERNANDEZ APRN E 461.9 SINUSITIS ACUTE 05/13/2012 VALDIVIA DO, JORDAN K 461.9 SINUSITIS ACUTE 05/13/2012 SANDEE FOURNIER APRN 461.9 SINUSITIS ACUTE 05/13/2012 VALDIVIA DO, JORDAN K 461.9 SINUSITIS ACUTE 05/20/2012 SANDEE FOURNIER APRN 465.9 UPPER RESPIRATORY INFECTION 05/20/2012 SANDEE FOURNIER APRN V72.83 PRE-ADMISSION EXAMINATION 05/20/2012 465.9 UPPER RESPIRATORY INFECTION 05/20/2012 V72.83 PRE- ADMISSION EXAMINATION 05/20/2012 465.9 UPPER RESPIRATORY INFECTION 05/20/2012 V72.83 PRE- ADMISSION EXAMINATION 05/20/2012 465.9 UPPER RESPIRATORY INFECTION 05/20/2012 V72.83 PRE- ADMISSION EXAMINATION 05/20/2012 SHEA LUIS, JORDAN K 465.9 UPPER RESPIRATORY INFECTION 05/20/2012 SHEA LUIS, JORDAN K V72.83 PRE-ADMISSION EXAMINATION 05/20/2012 465.9 UPPER RESPIRATORY INFECTION 05/20/2012 V72.83 PRE- ADMISSION EXAMINATION 05/20/2012 465.9 UPPER RESPIRATORY INFECTION 05/20/2012 V72.83 PRE- ADMISSION EXAMINATION 05/20/2012 465.9 UPPER RESPIRATORY INFECTION 05/20/2012 V72.83 PRE- ADMISSION EXAMINATION 05/20/2012 465.9 UPPER RESPIRATORY INFECTION 05/20/2012 V72.83 PRE- ADMISSION EXAMINATION 05/20/2012 465.9 UPPER RESPIRATORY INFECTION 05/20/2012 V72.83 PRE- ADMISSION EXAMINATION 05/20/2012 465.9 UPPER RESPIRATORY INFECTION 05/20/2012 V72.83 PRE- ADMISSION EXAMINATION 05/20/2012 SANDEE FOURNIER APRN R 465.9 UPPER RESPIRATORY INFECTION 05/20/2012 SANDEE FOURNIER APRN R V72.83 PRE-ADMISSION EXAMINATION 05/20/2012 [facility] , KEELY A 465.9 UPPER RESPIRATORY INFECTION 05/20/2012 [facility] PHD, KEELY A V72.83 PRE-ADMISSION EXAMINATION 05/20/2012 VALDIVIA DO, JORDAN K 465.9 UPPER RESPIRATORY INFECTION 05/20/2012 VALDIVIA DO, JORDAN K V72.83 PRE-ADMISSION EXAMINATION 05/20/2012 [facility] PHD, KEELY A 465.9 UPPER RESPIRATORY INFECTION 05/20/2012 [facility] PHD, KEELY A V72.83 PRE-ADMISSION EXAMINATION 05/20/2012 [facility] , KEELY A 465.9 UPPER RESPIRATORY INFECTION 05/20/2012 [facility] PHD, KEELY A V72.83 PRE-ADMISSION EXAMINATION 05/20/2012 VALDIVIA DO, JORDAN K 465.9 UPPER RESPIRATORY INFECTION 05/20/2012 VALDIVIA DO, JORDAN K V72.83 PRE-ADMISSION EXAMINATION 05/20/2012 VALDIVIA DO, JORDAN K 465.9 UPPER RESPIRATORY INFECTION 05/20/2012 VALDIVIA DO, JORDAN K V72.83 PRE-ADMISSION EXAMINATION 05/20/2012 IRENE HERNANDEZ APRNE E 465.9 UPPER RESPIRATORY INFECTION 05/20/2012 IRENE HERNANDEZ APRNE E V72.83 PRE-ADMISSION EXAMINATION 05/20/2012 VALDIVIA DO, JORDAN K 465.9 UPPER RESPIRATORY INFECTION 05/20/2012 VALDIVIA DO, JORDAN K V72.83 PRE-ADMISSION EXAMINATION 05/20/2012 VALDIVIA DO, JORDAN K 465.9 UPPER RESPIRATORY INFECTION 05/20/2012 VALDIVIA DO, JORDAN K V72.83 PRE-ADMISSION EXAMINATION 05/20/2012 JONATHAN GOMEZ MD 465.9 UPPER RESPIRATORY INFECTION 05/20/2012 JONATHAN GOMEZ MD V72.83 PRE-ADMISSION EXAMINATION 05/20/2012 RAFAEL HERNANDEZ APRN E 465.9 UPPER RESPIRATORY INFECTION 05/20/2012 RAFAEL HERNANDEZ APRN E V72.83 PRE-ADMISSION EXAMINATION 05/20/2012 SNADEE FOURNIER APRN R 465.9 UPPER RESPIRATORY INFECTION 05/20/2012 SANDEE FOURNIER APRN V72.83 PRE-ADMISSION EXAMINATION 05/20/2012 [employer], DORITA A 465.9 UPPER RESPIRATORY INFECTION 05/20/2012 [employer], DORITA A V72.83 PRE-ADMISSION EXAMINATION 05/20/2012 VALDIVIA DO, JORDAN K 465.9 UPPER RESPIRATORY INFECTION 05/20/2012 VALDIVIA DO, JORDAN K V72.83 PRE-ADMISSION EXAMINATION 05/20/2012 [facility] ZANDRA, RAFAEL E 465.9 UPPER RESPIRATORY INFECTION 05/20/2012 [facility] [employer], RAFAEL E V72.83 PRE-ADMISSION EXAMINATION 05/20/2012 VALDIVIA DO, JORDAN K 465.9 UPPER RESPIRATORY INFECTION 05/20/2012 VALDIVIA DO, JORDAN K V72.83 PRE-ADMISSION EXAMINATION 05/20/2012 WILFREDO REBOLLEDO APRNRICIA R 465.9 UPPER RESPIRATORY INFECTION 05/20/2012 KESHA DE PAZ MAME R V72.83 PRE-ADMISSION EXAMINATION 05/20/2012 VALDIVIA DO, JORDAN K 465.9 UPPER RESPIRATORY INFECTION 05/20/2012 VALDIVIA DO, JORDAN K V72.83 PRE-ADMISSION EXAMINATION 05/20/2012 VALDIVIA DO, JORDAN K 465.9 UPPER RESPIRATORY INFECTION 05/20/2012 VALDIVIA DO, JORDAN K V72.83 PRE-ADMISSION EXAMINATION 05/20/2012 VALDIVIA DO, JORDAN K 465.9 UPPER RESPIRATORY INFECTION 05/20/2012 VALDIVIA DO, JORDAN K V72.83 PRE-ADMISSION EXAMINATION 05/20/[address] [facility] APRNSIE E 465.9 UPPER RESPIRATORY INFECTION 05/20/2012 [facility] MONICA DE PAZSIE E V72.83 PRE-ADMISSION EXAMINATION 05/20/2012 VALDIVIA DO, JORDAN K 465.9 UPPER RESPIRATORY INFECTION 05/20/2012 VALDIVIA DO, JORDAN K V72.83 PRE-ADMISSION EXAMINATION 05/20/2012 SANDEE FOURNIER APRN R 465.9 UPPER RESPIRATORY INFECTION 05/20/2012 SANDEE FOURNIER APRN R V72.83 PRE-ADMISSION EXAMINATION 05/20/2012 VALDIVIA DO, JORDAN K 465.9 UPPER RESPIRATORY INFECTION 05/20/2012 VALDIVIA DO, JORDAN K V72.83 PRE-ADMISSION EXAMINATION 07/20/2012 375.53 STENOSIS OF LACRIMAL CANALICULI 07/20/2012 375.53 STENOSIS OF LACRIMAL CANALICULI 07/20/2012 VALDIVIA DO, JORDAN K 375.53 STENOSIS OF LACRIMAL CANALICULI 07/20/2012 375.53 STENOSIS OF LACRIMAL CANALICULI 07/20/2012 375.53 STENOSIS OF LACRIMAL CANALICULI 07/20/2012 375.53 STENOSIS OF LACRIMAL CANALICULI 07/20/2012 375.53 STENOSIS OF LACRIMAL CANALICULI 07/20/2012 375.53 STENOSIS OF LACRIMAL CANALICULI 07/20/2012 375.53 STENOSIS OF LACRIMAL CANALICULI 07/20/2012 SANDEE FOURNIER APRN 375.53 STENOSIS OF LACRIMAL CANALICULI 07/20/2012 KEELY CADENA PHD 375.53 STENOSIS OF LACRIMAL CANALICULI 07/20/2012 JORDAN VALDIVIA DO 375.53 STENOSIS OF LACRIMAL CANALICULI 07/20/2012 KEELY CADENA PHD 375.53 STENOSIS OF LACRIMAL CANALICULI 07/20/2012 SURINDER CONKLIN, KEELY Bucio 375.53 STENOSIS OF LACRIMAL CANALICULI 07/20/2012 JORDAN VALDIVIA DO 375.53 STENOSIS OF LACRIMAL CANALICULI 07/20/2012 MONICA VALDIVIA DOA K 375.53 STENOSIS OF LACRIMAL CANALICULI 07/20/2012 RAFAEL HERNANDEZ APRN 375.53 STENOSIS OF LACRIMAL CANALICULI 07/20/2012 JORDAN VALDIVIA DO K 375.53 STENOSIS OF LACRIMAL CANALICULI 07/20/2012 MONICA VALDIVIA DOA K 375.53 STENOSIS OF LACRIMAL CANALICULI 07/20/2012 JONATHAN GOMEZ MD 375.53 STENOSIS OF LACRIMAL CANALICULI 07/20/2012 RAFAEL HERNANDEZ APRN 375.53 STENOSIS OF LACRIMAL CANALICULI 07/20/2012 SANDEE FOURNIER APRN 375.53 STENOSIS OF LACRIMAL CANALICULI 07/20/2012 DORITA CORDOBA APRN 375.53 STENOSIS OF LACRIMAL CANALICULI 07/20/2012 JORDAN VALDIVIA DO 375.53 STENOSIS OF LACRIMAL CANALICULI 07/20/2012 RAFAEL HERNANDEZ APRN 375.53 STENOSIS OF LACRIMAL CANALICULI 07/20/2012 MONICA VALDIVIA DOA K 375.53 STENOSIS OF LACRIMAL CANALICULI 07/20/2012 MAME REBOLLEDO APRN 375.53 STENOSIS OF LACRIMAL CANALICULI 07/20/2012 MONICA VALDIVIA DOA K 375.53 STENOSIS OF LACRIMAL CANALICULI 07/20/2012 JORDAN VALDIVIA DO 375.53 STENOSIS OF LACRIMAL CANALICULI 07/20/2012 JORDAN VALDIVIA DO 375.53 STENOSIS OF LACRIMAL CANALICULI 07/20/2012 RAFAEL HERNANDEZ APRN 375.53 STENOSIS OF LACRIMAL CANALICULI 07/20/2012 JORDAN VALDIVIA DO 375.53 STENOSIS OF LACRIMAL CANALICULI 07/20/2012 SANDEE FOURNIER APRN 375.53 STENOSIS OF LACRIMAL CANALICULI 07/20/2012 JORDAN VALDIVIA DO 375.53 STENOSIS OF LACRIMAL CANALICULI 09/29/2012 V25.49 CONTRACEPTION SURVEILLANCE (REPEAT RX) 09/29/2012 V25.49 CONTRACEPTION SURVEILLANCE (REPEAT RX) 09/29/2012 V25.49 CONTRACEPTION SURVEILLANCE (REPEAT RX) 09/29/2012 V25.49 CONTRACEPTION SURVEILLANCE (REPEAT RX) 09/29/2012 SANDEE FOURNIER APRN V25.49 CONTRACEPTION SURVEILLANCE (REPEAT RX) 09/29/2012 SURINDER CONKLIN, KEELY Bucio V25.49 CONTRACEPTION SURVEILLANCE (REPEAT RX) 09/29/2012 JORDAN VALDIVIA DO V25.49 CONTRACEPTION SURVEILLANCE (REPEAT RX) 09/29/2012 SURINDER CONKLIN, KEELY Bucio V25.49 CONTRACEPTION SURVEILLANCE (REPEAT RX) 09/29/2012 SURINDER CONKLIN, KEELY Bucio V25.49 CONTRACEPTION SURVEILLANCE (REPEAT RX) 09/29/2012 JORDAN VALDIVIA DO V25.49 CONTRACEPTION SURVEILLANCE (REPEAT RX) 09/29/2012 JORDAN VALDIVIA DO V25.49 CONTRACEPTION SURVEILLANCE (REPEAT RX) 09/29/2012 RAFAEL HERNANDEZ APRN V25.49 CONTRACEPTION SURVEILLANCE (REPEAT RX) 09/29/2012 JORDAN VALDIVIA DO V25.49 CONTRACEPTION SURVEILLANCE (REPEAT RX) 09/29/2012 JORDAN VALDIVIA DO V25.49 CONTRACEPTION SURVEILLANCE (REPEAT RX) 09/29/2012 JONATHAN GOMEZ MD V25.49 CONTRACEPTION SURVEILLANCE (REPEAT RX) 09/29/2012 RAFAEL HERNANDEZ APRN V25.49 CONTRACEPTION SURVEILLANCE (REPEAT RX) 09/29/2012 SANDEE FOURNIER APRN V25.49 CONTRACEPTION SURVEILLANCE (REPEAT RX) 09/29/2012 DORITA CORDOBA APRN V25.49 CONTRACEPTION SURVEILLANCE (REPEAT RX) 09/29/2012 MONICA VALDIVIA DOA K V25.49 CONTRACEPTION SURVEILLANCE (REPEAT RX) 09/29/2012 RAFAEL HERNANDEZ APRN V25.49 CONTRACEPTION SURVEILLANCE (REPEAT RX) 09/29/2012 VALDIVIA DO JORDAN K V25.49 CONTRACEPTION SURVEILLANCE (REPEAT RX) 09/29/2012 MAME REBOLLEDO APRN V25.49 CONTRACEPTION SURVEILLANCE (REPEAT RX) 09/29/2012 VALDIVIA DO JORDAN K V25.49 CONTRACEPTION SURVEILLANCE (REPEAT RX) 09/29/2012 VALDIVIA DO, JORDAN K V25.49 CONTRACEPTION SURVEILLANCE (REPEAT RX) 09/29/2012 VALDIVIA DO, JORDAN K V25.49 CONTRACEPTION SURVEILLANCE (REPEAT RX) 09/29/2012 RAFAEL HERNANDEZ APRN V25.49 CONTRACEPTION SURVEILLANCE (REPEAT RX) 09/29/2012 VALDIVIA DO, JORDAN K V25.49 CONTRACEPTION SURVEILLANCE (REPEAT RX) 09/29/2012 SANDEE FOURNIER APRN V25.49 CONTRACEPTION SURVEILLANCE (REPEAT RX) 09/29/2012 VALDIVIA MONICA LUISA K V25.49 CONTRACEPTION SURVEILLANCE (REPEAT RX) 10/21/2012 789.00 ABDOMINAL PAIN UNSPECIFIED SITE 10/21/2012 789.00 ABDOMINAL PAIN UNSPECIFIED SITE 10/21/2012 789.00 ABDOMINAL PAIN UNSPECIFIED SITE 10/21/2012 SANDEE FOURNIER APRN 789.00 ABDOMINAL PAIN UNSPECIFIED SITE 10/21/2012 KEELY CADENA PHD 789.00 ABDOMINAL PAIN UNSPECIFIED SITE 10/21/2012 JORDAN VALDIVIA DO K 789.00 ABDOMINAL PAIN UNSPECIFIED SITE 10/21/2012 SURINDER CONKLIN, KEELY Bucio 789.00 ABDOMINAL PAIN UNSPECIFIED SITE 10/21/2012 SURINDER CONKLIN, KEELY Bucio 789.00 ABDOMINAL PAIN UNSPECIFIED SITE 10/21/2012 VALDIVIA MONICA LUISA K 789.00 ABDOMINAL PAIN UNSPECIFIED SITE 10/21/2012 MONICA VALDIVIA DOA K 789.00 ABDOMINAL PAIN UNSPECIFIED SITE 10/21/2012 RAFAEL HERNANDEZ APRN 789.00 ABDOMINAL PAIN UNSPECIFIED SITE 10/21/2012 VALDIVIA MONICA LUISA K 789.00 ABDOMINAL PAIN UNSPECIFIED SITE 10/21/2012 MONICA VALDIVIA DOA K 789.00 ABDOMINAL PAIN UNSPECIFIED SITE 10/21/2012 JONATHAN GOMEZ MD 789.00 ABDOMINAL PAIN UNSPECIFIED SITE 10/21/2012 RAFAEL HERNANDEZ APRN 789.00 ABDOMINAL PAIN UNSPECIFIED SITE 10/21/2012 SANDEE FOURNIER APRN 789.00 ABDOMINAL PAIN UNSPECIFIED SITE 10/21/2012 DORITA CORDOBA APRN 789.00 ABDOMINAL PAIN UNSPECIFIED SITE 10/21/2012 VALDIVIA DO, JORDAN K 789.00 ABDOMINAL PAIN UNSPECIFIED SITE 10/21/2012 RAFAEL HERNANDEZ APRN 789.00 ABDOMINAL PAIN UNSPECIFIED SITE 10/21/2012 VALDIVIA DO, JORDAN K 789.00 ABDOMINAL PAIN UNSPECIFIED SITE 10/21/2012 MAME REBOLLEDO APRN 789.00 ABDOMINAL PAIN UNSPECIFIED SITE 10/21/2012 VALDIVIA DO, JORDAN K 789.00 ABDOMINAL PAIN UNSPECIFIED SITE 10/21/2012 VALDIVIA DO, JORDAN K 789.00 ABDOMINAL PAIN UNSPECIFIED SITE 10/21/2012 VALDIVIA DO, JORDAN K 789.00 ABDOMINAL PAIN UNSPECIFIED SITE 10/21/2012 RAFAEL HERNANDEZ APRN E 789.00 ABDOMINAL PAIN UNSPECIFIED SITE 10/21/2012 VALDIVIA DO, JORDAN K 789.00 ABDOMINAL PAIN UNSPECIFIED SITE 10/21/2012 SANDEE FOURNIER APRN 789.00 ABDOMINAL PAIN UNSPECIFIED SITE 10/21/2012 VALDIVIA DO, JORDAN K 789.00 ABDOMINAL PAIN UNSPECIFIED SITE 12/31/2012 ALY GARCIA, LEONARDA Ot 217 BENIGN NEOPLASM BREAST 12/31/2012 ALY GARCIA, LEONARDA Ot 305.1 TOBACCO USE DISORDER 02/19/2013 RELL CRABTREE APRN Ot 276.51 DEHYDRATION 02/19/2013 RELL CRAB[employer]REE [employer] Ot 465.9 ACUTE URI NOS 02/19/2013 RELL [employer]ABTREE [employer] Ot 786.50 CHEST PAIN NOS 04/15/2013 VALDIVIA DO, JORDAN K 466.0 ACUTE BRONCHITIS 04/15/2013 KEELY CADENA PHD 466.0 ACUTE BRONCHITIS 04/15/2013 SURINDER CONKLIN, KEELY Bucio 466.0 ACUTE BRONCHITIS 04/15/2013 VALDIVIA DO, JORDAN K 466.0 ACUTE BRONCHITIS 04/15/2013 VALDIVIA DO, JORDAN K 466.0 ACUTE BRONCHITIS 04/15/2013 MONICA HERNANDEZ APRNSIE E 466.0 ACUTE BRONCHITIS 04/15/2013 VALDIVIA DO, JORDAN K 466.0 ACUTE BRONCHITIS 04/15/2013 VALDIVIA DO, JORDAN K 466.0 ACUTE BRONCHITIS 04/15/2013 JONATHAN GOMEZ MD 466.0 ACUTE BRONCHITIS 04/15/[address] [facility]N E 466.0 ACUTE BRONCHITIS 04/15/2013 SANDEE FOURNIER APRN R 466.0 ACUTE BRONCHITIS 04/15/2013 BERYL DE PAZ, DORITA A 466.0 ACUTE BRONCHITIS 04/15/2013 VALDIVIA DO, JORDAN K 466.0 ACUTE BRONCHITIS 04/15/[address] [facility] RAFAEL E 466.0 ACUTE BRONCHITIS 04/15/2013 VALDIVIA DO, JORDAN K 466.0 ACUTE BRONCHITIS 04/15/2013 MAME REBOLLEDO APRN R 466.0 ACUTE BRONCHITIS 04/15/2013 VALDIVIA DO, JORDAN K 466.0 ACUTE BRONCHITIS 04/15/2013 VALDIVIA DO, JORDAN K 466.0 ACUTE BRONCHITIS 04/15/2013 VALDIVIA DO, JORDAN K 466.0 ACUTE BRONCHITIS 04/15/[address] [facility] APRN E 466.0 ACUTE BRONCHITIS 04/15/2013 VALDIVIA DO, JORDAN K 466.0 ACUTE BRONCHITIS 04/15/2013 SANDEE FOURNIER APRN 466.0 ACUTE BRONCHITIS 04/15/2013 VALDIVIA DO, JORDAN K 466.0 ACUTE BRONCHITIS 06/22/2013 VALDIVIA DO, JORDAN K 112.1 CANDIDIASIS VAGINAL 06/22/2013 VALDIVIA DO, JORDAN K V18.0 FAM HX DIABETES MELLITUS 06/22/[address] [facility] APRN E 112.1 CANDIDIASIS VAGINAL 06/22/[address] [facility]N E V18.0 FAM HX DIABETES MELLITUS 06/22/2013 VALDIVIA DO, JORDAN K 112.1 CANDIDIASIS VAGINAL 06/22/2013 VALDIVIA DO, JORDAN K V18.0 FAM HX DIABETES MELLITUS 06/22/2013 VALDIVIA DO, JORDAN K 112.1 CANDIDIASIS VAGINAL 06/22/2013 VALDIVIA DO, JORDAN K V18.0 FAM HX DIABETES MELLITUS 06/22/2013 JONATHAN GOMEZ MD 112.1 CANDIDIASIS VAGINAL 06/22/2013 JONATHAN GOMEZ MD V18.0 FAM HX DIABETES MELLITUS 06/22/2013 [employer], RAFAEL E 112.1 CANDIDIASIS VAGINAL 06/22/[address] [facility] APRN E V18.0 FAM HX DIABETES MELLITUS 06/22/2013 SANDEE FOURNIER APRN 112.1 CANDIDIASIS VAGINAL 06/22/2013 FOURNIERSANDEE HIRSCH APRN R V18.0 FAM HX DIABETES MELLITUS 06/22/2013 [employer]L [employer], DORITA A 112.1 CANDIDIASIS VAGINAL 06/22/2013 [employer], DORITA A V18.0 FAM HX DIABETES MELLITUS 06/22/2013 VALDIVIA DO, JORDAN K 112.1 CANDIDIASIS VAGINAL 06/22/2013 VALDIVIA DO, JORDAN K V18.0 FAM HX DIABETES MELLITUS 06/22/2013 LUKERAFAEL CODY APRN E 112.1 CANDIDIASIS VAGINAL 06/22/[address] [facility] APRN E V18.0 FAM HX DIABETES MELLITUS 06/22/2013 VALDIVIA DO, JORDAN K 112.1 CANDIDIASIS VAGINAL 06/22/2013 VALDIVIA DO, JORDAN K V18.0 FAM HX DIABETES MELLITUS 06/22/2013 KESHA DE PAZ, MAME R 112.1 CANDIDIASIS VAGINAL 06/22/2013 KESHA ALVAREZN, MAME R V18.0 FAM HX DIABETES MELLITUS 06/22/2013 VALDIVIA DO, JORDAN K 112.1 CANDIDIASIS VAGINAL 06/22/2013 VALDIVIA DO, JORDAN K V18.0 FAM HX DIABETES MELLITUS 06/22/2013 VALDIVIA DO, JORDAN K 112.1 CANDIDIASIS VAGINAL 06/22/2013 VALDIVIA DO, JORDAN K V18.0 FAM HX DIABETES MELLITUS 06/22/2013 VALDIVIA DO, JORDAN K 112.1 CANDIDIASIS VAGINAL 06/22/2013 VALDIVIA DO, JORDAN K V18.0 FAM HX DIABETES MELLITUS 06/22/2013 LUKERAFAEL CODY APRN E 112.1 CANDIDIASIS VAGINAL 06/22/2013 [facility] IRENE DE PAZE E V18.0 FAM HX DIABETES MELLITUS 06/22/2013 VALDIVIA DO, JORDAN K 112.1 CANDIDIASIS VAGINAL 06/22/2013 VALDIVIA DO, JORDAN K V18.0 FAM HX DIABETES MELLITUS 06/22/2013 SANDEE FOURNIER APRN 112.1 CANDIDIASIS VAGINAL 06/22/2013 SANDEE FOURNIER APRN V18.0 FAM HX DIABETES MELLITUS 06/22/2013 VALDIVIA DO, JORDAN K 112.1 CANDIDIASIS VAGINAL 06/22/2013 JORDAN VALDIVIA DO K V18.0 FAM HX DIABETES MELLITUS 07/27/2013 SHEA LUIS, JORDAN K 346.00 MIGRAINE WITH AURA WITHOUT MENTION OF INTRACTABLE MIGRAINE WITHOUT MENTION OF STATUS MIGRAINOSUS 07/27/2013 VALDIVIA DO, JORDAN K 346.00 MIGRAINE WITH AURA WITHOUT MENTION OF INTRACTABLE MIGRAINE WITHOUT MENTION OF STATUS MIGRAINOSUS 07/27/2013 JONATHAN GOMEZ MD 346.00 MIGRAINE WITH AURA WITHOUT MENTION OF INTRACTABLE MIGRAINE WITHOUT MENTION OF STATUS MIGRAINOSUS 07/27/2013 RAFAEL HERNANDEZ APRN 346.00 MIGRAINE WITH AURA WITHOUT MENTION OF INTRACTABLE MIGRAINE WITHOUT MENTION OF STATUS MIGRAINOSUS 07/27/2013 SANDEE FOURNIER APRN 346.00 MIGRAINE WITH AURA WITHOUT MENTION OF INTRACTABLE MIGRAINE WITHOUT MENTION OF STATUS MIGRAINOSUS 07/27/2013 DORITA CORDOBA APRN 346.00 MIGRAINE WITH AURA WITHOUT MENTION OF INTRACTABLE MIGRAINE WITHOUT MENTION OF STATUS MIGRAINOSUS 07/27/2013 MONICA VALDIVIA DOA K 346.00 MIGRAINE WITH AURA WITHOUT MENTION OF INTRACTABLE MIGRAINE WITHOUT MENTION OF STATUS MIGRAINOSUS 07/27/2013 RAFAEL HERNANDEZ APRN 346.00 MIGRAINE WITH AURA WITHOUT MENTION OF INTRACTABLE MIGRAINE WITHOUT MENTION OF STATUS MIGRAINOSUS 07/27/2013 SHEA LUIS, JORDAN K 346.00 MIGRAINE WITH AURA WITHOUT MENTION OF INTRACTABLE MIGRAINE WITHOUT MENTION OF STATUS MIGRAINOSUS 07/27/2013 MAME REBOLLEDO APRN 346.00 MIGRAINE WITH AURA WITHOUT MENTION OF INTRACTABLE MIGRAINE WITHOUT MENTION OF STATUS MIGRAINOSUS 07/27/2013 SHEA LUIS JORDAN K 346.00 MIGRAINE WITH AURA WITHOUT MENTION OF INTRACTABLE MIGRAINE WITHOUT MENTION OF STATUS MIGRAINOSUS 07/27/2013 SHEA LUIS, JORDAN K 346.00 MIGRAINE WITH AURA WITHOUT MENTION OF INTRACTABLE MIGRAINE WITHOUT MENTION OF STATUS MIGRAINOSUS 07/27/2013 SHEA LUIS, JORDAN K 346.00 MIGRAINE WITH AURA WITHOUT MENTION OF INTRACTABLE MIGRAINE WITHOUT MENTION OF STATUS MIGRAINOSUS 07/27/2013 RAFAEL HERNANDEZ APRN 346.00 MIGRAINE WITH AURA WITHOUT MENTION OF INTRACTABLE MIGRAINE WITHOUT MENTION OF STATUS MIGRAINOSUS 07/27/2013 SHEA LUIS, JORDAN K 346.00 MIGRAINE WITH AURA WITHOUT MENTION OF INTRACTABLE MIGRAINE WITHOUT MENTION OF STATUS MIGRAINOSUS 07/27/2013 SANDEE FOURNIER APRN 346.00 MIGRAINE WITH AURA WITHOUT MENTION OF INTRACTABLE MIGRAINE WITHOUT MENTION OF STATUS MIGRAINOSUS 07/27/2013 JORDAN VALDIVIA DO K 346.00 MIGRAINE WITH AURA WITHOUT MENTION OF INTRACTABLE MIGRAINE WITHOUT MENTION OF STATUS MIGRAINOSUS 08/06/2013 SHEA LUIS JORDAN K 599.0 URINARY TRACT INFECTION SITE NOT SPECIFIED 08/06/2013 MONICA VLADIVIA DOA K 704.8 OTHER SPECIFIED DISEASES OF HAIR AND HAIR FOLLICLES 08/06/2013 JONATHAN GOMEZ MD 599.0 URINARY TRACT INFECTION SITE NOT SPECIFIED 08/06/2013 JONATHAN GOMEZ MD 704.8 OTHER SPECIFIED DISEASES OF HAIR AND HAIR FOLLICLES 08/06/2013 RAFAEL HERNANDEZ APRN E 599.0 URINARY TRACT INFECTION SITE NOT SPECIFIED 08/06/2013 RAFAEL HERNANDEZ APRN E 704.8 OTHER SPECIFIED DISEASES OF HAIR AND HAIR FOLLICLES 08/06/2013 SANDEE FOURNIER APRN 599.0 URINARY TRACT INFECTION SITE NOT SPECIFIED 08/06/2013 SANDEE FOURNIER APRN 704.8 OTHER SPECIFIED DISEASES OF HAIR AND HAIR FOLLICLES 08/06/2013 DORITA CORDOBA APRN A 599.0 URINARY TRACT INFECTION SITE NOT SPECIFIED 08/06/2013 DORITA CORDOBA APRN A 704.8 OTHER SPECIFIED DISEASES OF HAIR AND HAIR FOLLICLES 08/06/2013 MONICA VALDIVIA DOA K 599.0 URINARY TRACT INFECTION SITE NOT SPECIFIED 08/06/2013 MONICA VALDIVIA DOA K 704.8 OTHER SPECIFIED DISEASES OF HAIR AND HAIR FOLLICLES 08/06/2013 RAFAEL HERNANDEZ APRN E 599.0 URINARY TRACT INFECTION SITE NOT SPECIFIED 08/06/2013 RAFAEL HERNANDEZ APRN E 704.8 OTHER SPECIFIED DISEASES OF HAIR AND HAIR FOLLICLES 08/06/2013 SHEA LUIS JORDAN K 599.0 URINARY TRACT INFECTION SITE NOT SPECIFIED 08/06/2013 SHEA LUIS JRODAN K 704.8 OTHER SPECIFIED DISEASES OF HAIR AND HAIR FOLLICLES 08/06/2013 MAME REBOLLEDO APRN R 599.0 URINARY TRACT INFECTION SITE NOT SPECIFIED 08/06/2013 MAME REBOLLEDO APRN R 704.8 OTHER SPECIFIED DISEASES OF HAIR AND HAIR FOLLICLES 08/06/2013 SHEA LUIS JORDAN K 599.0 URINARY TRACT INFECTION SITE NOT SPECIFIED 08/06/2013 SHEA DO, JORDAN K 704.8 OTHER SPECIFIED DISEASES OF HAIR AND HAIR FOLLICLES 08/06/2013 VALDIVIA DO, JORDAN K 599.0 URINARY TRACT INFECTION SITE NOT SPECIFIED 08/06/2013 VALDIVIA DO, JORDAN K 704.8 OTHER SPECIFIED DISEASES OF HAIR AND HAIR FOLLICLES 08/06/2013 VALDIVIA DO, JORDAN K 599.0 URINARY TRACT INFECTION SITE NOT SPECIFIED 08/06/2013 VALDIVIA DO, JORDAN K 704.8 OTHER SPECIFIED DISEASES OF HAIR AND HAIR FOLLICLES 08/06/2013 RAFAEL HERNANDEZ APRN E 599.0 URINARY TRACT INFECTION SITE NOT SPECIFIED 08/06/2013 RAFAEL HERNANDEZ APRN E 704.8 OTHER SPECIFIED DISEASES OF HAIR AND HAIR FOLLICLES 08/06/2013 VALDIVIA DO, JORDAN K 599.0 URINARY TRACT INFECTION SITE NOT SPECIFIED 08/06/2013 VALDIVIA DO JORDAN K 704.8 OTHER SPECIFIED DISEASES OF HAIR AND HAIR FOLLICLES 08/06/2013 SANDEE FOURNIER APRN 599.0 URINARY TRACT INFECTION SITE NOT SPECIFIED 08/06/2013 SANDEE FOURNIER APRN 704.8 OTHER SPECIFIED DISEASES OF HAIR AND HAIR FOLLICLES 08/06/2013 SHEA DO, JORDAN K 599.0 URINARY TRACT INFECTION SITE NOT SPECIFIED 08/06/2013 SHEA LUIS JORDAN K 704.8 OTHER SPECIFIED DISEASES OF HAIR AND HAIR FOLLICLES 08/11/2013 JONATHAN GOMEZ MD 314.00 ADHD INATTENTIVE 08/11/2013 RAFAEL HERNANDEZ APRN E 314.00 ADHD INATTENTIVE 08/11/2013 SANDEE FOURNIER APRN 314.00 ADHD INATTENTIVE 08/11/2013 DORITA CORDOBA APRN 314.00 ADHD INATTENTIVE 08/11/2013 SHEA DO, JORDAN K 314.00 ADHD INATTENTIVE 08/11/2013 RAFAEL HERNANDEZ APRN E 314.00 ADHD INATTENTIVE 08/11/2013 VALDIVIA DO, JORDAN K 314.00 ADHD INATTENTIVE 08/11/2013 MAME REBOLLEDO APRN 314.00 ADHD INATTENTIVE 08/11/2013 VALDIVIA DO, JORDAN K 314.00 ADHD INATTENTIVE 08/11/2013 VALDIVIA DO, JORDAN K 314.00 ADHD INATTENTIVE 08/11/2013 VALDIVIA DO, JORDAN K 314.00 ADHD INATTENTIVE 08/11/2013 RAFAEL HERNANDEZ APRN E 314.00 ADHD INATTENTIVE 08/11/2013 VALDIVIA DO, JORDAN K 314.00 ADHD INATTENTIVE 08/11/2013 SANDEE FOURNIER APRN 314.00 ADHD INATTENTIVE 08/11/2013 VALDIVIA DO, JORDAN K 314.00 ADHD INATTENTIVE 09/14/2013 BERYLSean DE PAZ DORITA A 625.8 OTHER SPECIFIED SYMPTOMS ASSOCIATED WITH FEMALE GENITAL ORGANS 09/14/2013 VALDIVIA DO, JORDAN K 625.8 OTHER SPECIFIED SYMPTOMS ASSOCIATED WITH FEMALE GENITAL ORGANS 09/14/2013 RAFAEL HERNANDEZ APRN E 625.8 OTHER SPECIFIED SYMPTOMS ASSOCIATED WITH FEMALE GENITAL ORGANS 09/14/2013 VALDIVIA DO, JORDAN K 625.8 OTHER SPECIFIED SYMPTOMS ASSOCIATED WITH FEMALE GENITAL ORGANS 09/14/2013 MAME REBOLLEDO APRN 625.8 OTHER SPECIFIED SYMPTOMS ASSOCIATED WITH FEMALE GENITAL ORGANS 09/14/2013 VALDIVIA DO, JORDAN K 625.8 OTHER SPECIFIED SYMPTOMS ASSOCIATED WITH FEMALE GENITAL ORGANS 09/14/2013 VALDIVIA DO, JORDAN K 625.8 OTHER SPECIFIED SYMPTOMS ASSOCIATED WITH FEMALE GENITAL ORGANS 09/14/2013 VALDIVIA DO, JORDAN K 625.8 OTHER SPECIFIED SYMPTOMS ASSOCIATED WITH FEMALE GENITAL ORGANS 09/14/2013 RAFAEL HERNANDEZ APRN E 625.8 OTHER SPECIFIED SYMPTOMS ASSOCIATED WITH FEMALE GENITAL ORGANS 09/14/2013 VALDIVIA DO, JORDAN K 625.8 OTHER SPECIFIED SYMPTOMS ASSOCIATED WITH FEMALE GENITAL ORGANS 09/14/2013 SANDEE FOURNIER APRN 625.8 OTHER SPECIFIED SYMPTOMS ASSOCIATED WITH FEMALE GENITAL ORGANS 09/14/2013 VALDIVIA DO, JORDAN K 625.8 OTHER SPECIFIED SYMPTOMS ASSOCIATED WITH FEMALE GENITAL ORGANS 10/08/2013 VALDIVIA DO, JORDAN K 734 FLAT FOOT 10/08/2013 RAFAEL HERNANDEZ APRN E 734 FLAT FOOT 10/08/2013 VALDIVIA DO, JORDAN K 734 FLAT FOOT 10/08/2013 MAME REBOLLEDO APRN R 734 FLAT FOOT 10/08/2013 VALDIVIA DO, JORDAN K 734 FLAT FOOT 10/08/2013 VALDIVIA DO, JORDAN K 734 FLAT FOOT 10/08/2013 VALDIVIA DO, JORDAN K 734 FLAT FOOT 10/08/2013 RAFAEL HERNANDEZ APRN E 734 FLAT FOOT 10/08/2013 VALDIVIA DO, JORDAN K 734 FLAT FOOT 10/08/2013 SANDEE FOURNIER APRN 734 FLAT FOOT 10/08/2013 VALDIVIA DO, JORDAN K 734 FLAT FOOT 11/24/2013 RAFAEL HERNANDEZ APRN 701.9 UNSPECIFIED HYPERTROPHIC AND ATROPHIC CONDITIONS OF SKIN 11/24/2013 VALDIVIA DO, JORDAN K 701.9 UNSPECIFIED HYPERTROPHIC AND ATROPHIC CONDITIONS OF SKIN 11/24/2013 MAME REBOLLEDO APRN R 701.9 UNSPECIFIED HYPERTROPHIC AND ATROPHIC CONDITIONS OF SKIN 11/24/2013 VALDIVIA DO, JORDAN K 701.9 UNSPECIFIED HYPERTROPHIC AND ATROPHIC CONDITIONS OF SKIN 11/24/2013 VALDIVIA DO, JORDAN K 701.9 UNSPECIFIED HYPERTROPHIC AND ATROPHIC CONDITIONS OF SKIN 11/24/2013 VALDIVIA DO, JORDAN K 701.9 UNSPECIFIED HYPERTROPHIC AND ATROPHIC CONDITIONS OF SKIN 11/24/2013 RAFAEL HERNANDEZ APRN 701.9 UNSPECIFIED HYPERTROPHIC AND ATROPHIC CONDITIONS OF SKIN 11/24/2013 VALDIVIA DO, JORDAN K 701.9 UNSPECIFIED HYPERTROPHIC AND ATROPHIC CONDITIONS OF SKIN 11/24/2013 SANDEE FOURNIER APRN 701.9 UNSPECIFIED HYPERTROPHIC AND ATROPHIC CONDITIONS OF SKIN 11/24/2013 VALDIVIA DO, JORDAN K 701.9 UNSPECIFIED HYPERTROPHIC AND ATROPHIC CONDITIONS OF SKIN 01/26/2014 VALDIVIA DO, JORDAN K 305.1 TOBACCO ABUSE 01/26/2014 MAME REBOLLEDO APRN 305.1 TOBACCO ABUSE 01/26/2014 VALDIVIA DO, JORDAN K 305.1 TOBACCO ABUSE 01/26/2014 VALDIVIA DO, JORDAN K 305.1 TOBACCO ABUSE 01/26/2014 VALDIVIA DO, JORDAN K 305.1 TOBACCO ABUSE 01/26/2014 RAFAEL HERNANDEZ APRN 305.1 TOBACCO ABUSE 01/26/2014 VALDIVIA DO, JORDAN K 305.1 TOBACCO ABUSE 01/26/2014 SANDEE FOURNIER APRN 305.1 TOBACCO ABUSE 01/26/2014 VALDIVIA DO, JORDAN K 305.1 TOBACCO ABUSE 02/28/2014 VALDIVIA DO, JORDAN K 789.09 ABDOMINAL PAIN OTHER SPECIFIED SITE 02/28/2014 VALDIVIA DO, JORDAN K 789.09 ABDOMINAL PAIN OTHER SPECIFIED SITE 02/28/2014 VALDIVIA DO, JORDAN K 789.09 ABDOMINAL PAIN OTHER SPECIFIED SITE 02/28/2014 RAFAEL HERNANDEZ APRN 789.09 ABDOMINAL PAIN OTHER SPECIFIED SITE 02/28/2014 SHEA LUIS JORDAN K 789.09 ABDOMINAL PAIN OTHER SPECIFIED SITE 02/28/2014 SANDEE FOURNIER APRN 789.09 ABDOMINAL PAIN OTHER SPECIFIED SITE 02/28/2014 VALDIVIA DO JORDAN K 789.09 ABDOMINAL PAIN OTHER SPECIFIED SITE 03/09/2014 SHEA LUIS JORDAN K 847.1 SPRAIN THORACIC REGION 03/09/2014 VALDIVIA DO JORDAN K 847.1 SPRAIN THORACIC REGION 03/09/2014 RAFAEL HERNANDEZ APRN 847.1 SPRAIN THORACIC REGION 03/09/2014 VALDIVIA DO JORDAN K 847.1 SPRAIN THORACIC REGION 03/09/2014 SANDEE FOURNIER APRN 847.1 SPRAIN THORACIC REGION 03/09/2014 SHEA LUIS JORDAN K 847.1 SPRAIN THORACIC REGION 03/31/2014 SHEA LUIS JORDAN K 724.1 PAIN IN THORACIC SPINE 03/31/2014 SHEA LUIS JORDAN K 737.30 SCOLIOSIS (AND KYPHOSCOLIOSIS) IDIOPATHIC 03/31/2014 RAFAEL HERNANDEZ APRN 724.1 PAIN IN THORACIC SPINE 03/31/2014 RAFAEL HERNANDEZ APRN E 737.30 SCOLIOSIS (AND KYPHOSCOLIOSIS) IDIOPATHIC 03/31/2014 MONICA VALDIVIA DOA K 724.1 PAIN IN THORACIC SPINE 03/31/2014 SHEA LUIS JORDAN K 737.30 SCOLIOSIS (AND KYPHOSCOLIOSIS) IDIOPATHIC 03/31/2014 SANDEE FOURNIER APRN 724.1 PAIN IN THORACIC SPINE 03/31/2014 SANDEE FOURNIER APRN 737.30 SCOLIOSIS (AND KYPHOSCOLIOSIS) IDIOPATHIC 03/31/2014 SHEA LUIS JORDAN K 724.1 PAIN IN THORACIC SPINE 03/31/2014 SHEA LUIS JORDAN K 737.30 SCOLIOSIS (AND KYPHOSCOLIOSIS) IDIOPATHIC 05/19/2014 RAFAEL HERNANDEZ APRN V25.9 UNSPECIFIED CONTRACEPTIVE MANAGEMENT 05/19/2014 SHEA LUIS JORDAN K V25.9 UNSPECIFIED CONTRACEPTIVE MANAGEMENT 05/19/2014 SANDEE FOURNIER APRN V25.9 UNSPECIFIED CONTRACEPTIVE MANAGEMENT 05/19/2014 MONICA VALDIVIA DOA K V25.9 UNSPECIFIED CONTRACEPTIVE MANAGEMENT 06/08/2014 MONICA VALDIVIA DOA K 372.30 CONJUNCTIVITIS UNSPECIFIED 06/08/2014 SANDEE FOURNIER APRN 372.30 CONJUNCTIVITIS UNSPECIFIED 06/08/2014 JORDAN VALDIVIA DO Jocelyne 372.30 CONJUNCTIVITIS UNSPECIFIED 06/09/2014 Ot 611.72 06/09/2014 Ot 793.89 06/09/2014 Ot 611.72 06/09/2014 LEONARDA BENAVIDES MD Ot 611.72 06/09/2014 LEONARDA BENAVIDES MD Ot V72.83 06/09/2014 ALY GARCIA, LEONARDA Ot V74.8 06/09/2014 CLAU GARCIA, JONO Simth Ot 360.00 PURULENT ENDOPHTHALM NOS 06/09/2014 CLAU GARCIA, JONO Smith Ot 379.93 REDNESS/DISCHARGE OF EYE 08/11/2014 SANDEE FOURNIER APRN 487.1 INFLUENZA 08/11/2014 MONICA VALDIVIA DORupinder Casanova 487.1 INFLUENZA 01/09/2017 Ot 611.72 LUMP OR MASS IN BREAST 01/09/2017 Ot 793.89 OTH (ABN) FINDINGS ON RADIOLOGICAL EXAMI 01/09/2017 Ot 611.72 LUMP OR MASS IN BREAST 01/09/2017 LEONARDA BENAVIDES MD Ot 611.72 LUMP OR MASS IN BREAST 01/09/2017 LEONARDA BENAVIDES MD Ot V72.83 EXAM PRE-OPERATIVE NEC 01/09/2017 LEONARDA BENAVIDES MD Ot V74.8 SCREEN-BACTERIAL DIS NEC 01/22/2017 Ot 611.72 LUMP OR MASS IN BREAST 01/22/2017 Ot 793.89 OTH (ABN) FINDINGS ON RADIOLOGICAL EXAMI 01/22/2017 Ot 611.72 LUMP OR MASS IN BREAST 01/22/2017 LEONARDA BENAVIDES MD Ot 611.72 LUMP OR MASS IN BREAST 01/22/2017 LEONARDA BENAVIDES MD Ot V72.83 EXAM PRE-OPERATIVE NEC 01/22/2017 LEONARDA BENAVIDES MD Ot V74.8 SCREEN-BACTERIAL DIS NEC 01/28/2017 JOSE EDUARDO ISRAEL MD Ot Z36 ENCOUNTER FOR SCREENING OF MOT 01/28/2017 JOSE EDUARDO ISRAEL MD, Ot Z3A.01 LESS THAN 8 WEEKS GESTATION OF 02/11/2017 JOSE EDUARDO ISRAEL MD, Ot Z36 ENCOUNTER FOR SCREENING OF MOT 02/11/2017 JOSE EDUARDO ISRAEL MD, Ot Z3A.01 LESS THAN 8 WEEKS GESTATION OF 02/23/2017 ARABELLA PHELPSEN Enedina Ot F32.9 MAJOR DEPRESSIVE DISORDER, SINGLE EPISOD 02/23/2017 JOSE PHELPS Ot F41.9 ANXIETY DISORDER, UNSPECIFIED 02/23/2017 JOSE PHELPS Ot J20.9 ACUTE BRONCHITIS, UNSPECIFIED 02/23/2017 JOSE PHELPS Ot J45.909 UNSPECIFIED ASTHMA, UNCOMPLICATED 02/23/2017 JOSE PHELPS Ot O99.341 OTH MENTAL DISORDERS COMPLICATING PREGNA 02/23/2017 JOSE PHELPS Ot O99.511 DISEASES OF THE RESP SYS COMP , 02/23/2017 JOSE PHELPS Ot Z3A.12 12 WEEKS GESTATION OF 02/25/2017 JOSE PHELPS Ot F32.9 MAJOR DEPRESSIVE DISORDER, SINGLE EPISOD 02/25/2017 JOSE PHELPS Ot F41.9 ANXIETY DISORDER, UNSPECIFIED 02/25/2017 ARABELLA PHELPSEN Enedina Ot J20.9 ACUTE BRONCHITIS, UNSPECIFIED 02/25/2017 JOSE PHELPS Ot J45.909 UNSPECIFIED ASTHMA, UNCOMPLICATED 02/25/2017 ARABELLA PHELPSEN Enedina Ot O99.341 OTH MENTAL DISORDERS COMPLICATING PREGNA 02/25/2017 JOSE PHELPS Ot O99.511 DISEASES OF THE RESP SYS COMP , 02/25/2017 JOSE PHELPS Ot Z3A.12 12 WEEKS GESTATION OF 04/08/2017 Ot 611.72 LUMP OR MASS IN BREAST 04/08/2017 Ot 793.89 OTH (ABN) FINDINGS ON RADIOLOGICAL EXAMI 04/08/2017 Ot 611.72 LUMP OR MASS IN BREAST 04/08/2017 LEONARDA BENAVIDES MD Ot 611.72 LUMP OR MASS IN BREAST 04/08/2017 LEONARDA BENAVIDES MD Ot V72.83 EXAM PRE-OPERATIVE NEC 04/08/2017 LEONARDA BENAVIDES MD Ot V74.8 SCREEN-BACTERIAL DIS NEC 04/08/2017 JOSE EDUARDO ISRAEL MD, Ot Z36 ENCOUNTER FOR SCREENING OF MOT 04/08/2017 JOSE EDUARDO ISRAEL MD, Ot Z3A.01 LESS THAN 8 WEEKS GESTATION OF 04/09/2017 JOSE EDUARDO ISRAEL MD, Ot Z36.3 ENCOUNTER FOR SCREENING FOR MA 04/09/2017 JOSE EDUARDO ISRAEL MD, Ot Z3A.18 18 WEEKS GESTATION OF 04/17/2017 JOSE EDUARDO ISRAEL MD, Ot Z36.3 ENCOUNTER FOR SCREENING FOR MA 04/17/2017 JOSE EDUARDO ISRAEL MD, Ot3A.18 18 WEEKS GESTATION OF 07/25/2017 Ot 611.72 LUMP OR MASS IN BREAST 07/25/2017 ALY GARCIA, LEONARDA Ot 611.72 LUMP OR MASS IN BREAST 07/25/2017 LEONARDA BENAVIDES MD Ot V72.83 EXAM PRE-OPERATIVE NEC 07/25/2017 LEONARDA BENAVIDES MD Ot V74.8 SCREEN-BACTERIAL DIS NEC 07/25/2017 JOSE EDUARDO ISRAEL MD, Ot Z36 ENCOUNTER FOR SCREENING OF MOT 07/25/2017 JOSE EDUARDO ISRAEL MD, Ot Z3A.01 LESS THAN 8 WEEKS GESTATION OF 07/25/2017 JOSE EDUARDO ISRAEL MD, Ot Z36.3 ENCOUNTER FOR SCREENING FOR MA 07/25/2017 JOSE EDUARDO ISRAEL MD, Ot ZGabriela.18 18 WEEKS GESTATION OF 07/30/2017 ABHINAV GOEL DO, Ot Z34.03 ENCNTR FOR SUPRVSN OF NORMAL FIRST PREG, 07/30/2017 ABHINAV GOEL DO, Ot Z3A.33 33 WEEKS GESTATION OF 07/30/2017 ABHINAV GOEL DO, Ot Z34.03 ENCNTR FOR SUPRVSN OF NORMAL FIRST PREG, 07/30/2017 ABHINAV GOEL DO, Ot Z3A.33 33 WEEKS GESTATION OF Procedures Code Description [place] [address] THERAPUTIC INJ SQ/IM 04/23/2012 J1055 DEPO-PROVERA INJ 150 MG 04/23/2012 30328 URINE TEST (IN- HOUSE) 04/23/2012 16513 GC/CHLAM URINE (STATE) 04/23/2012 71379 INDIV PSYTX 45/50 MIN 05/11/2012 06519 PSYCH PHARM MGMT 05/20/2012 01282 THERAPUTIC INJ SQ/IM 07/14/2012 J1055 DEPO-PROVERA INJ 150 MG 07/14/2012 96698 URINE TEST (IN- HOUSE) 07/14/2012 33595 PSYTX PT&/FAMILY 45 MINUTES 07/28/2012 31482 US BREAST ULTRASOUND, LEFT 07/28/2012 General S Chino Benavides 07/28/2012 50285 PSYTX PT&/FAMILY 45 MINUTES 09/11/2012 28256 URINE TEST (IN- HOUSE) 09/29/2012 20160 THERAPUTIC INJ SQ/IM 09/29/2012 J1050 DEPO PROVERA 09/29/2012 81178 UA LONG DIP 10/21/2012 32113 PSYTX PT&/FAMILY 45 MINUTES 10/23/2012 29636 STREP A (IN-HOUSE) 02/18/2013 36158 INFLUENZA A & B (IN-HOUSE) 02/18/2013 14677 THERAPUTIC INJ SQ/IM 03/05/2013 10599 URINE TEST (IN- HOUSE) 03/05/2013 J1050 DEPO PROVERA 03/09/2013 04065 PSYTX PT&/FAMILY 45 MINUTES 03/22/2013 77926 PSYTX PT&/FAMILY 45 MINUTES 04/21/2013 89989 PSYTX PT&/FAMILY 45 MINUTES 05/26/2013 76570 ROUTINE VENIPUNCTURE 06/22/2013 53765 TRICHOMONAS (IN-HOUSE) 06/22/2013 23166 A1C (RML) 06/22/2013 73510 CULTURE UROGENITAL 06/22/2013 66529 GC/CHLAM PROBE (STATE) 06/22/2013 03889 CULTURE FUNGAL 07/15/2013 06222 UA LONG DIP 08/06/2013 49098 TEST, URINE (IN- HOUSE) 09/06/2013 01018 THERAPUTIC INJ SQ/IM 09/06/2013 J1050 DEPO PROVERA 09/06/2013 62948 XRAY KNEE LEFT 3 VIEWS 10/11/2013 10651 THERAPUTIC INJ SQ/IM 11/24/2013 J1050 DEPO PROVERA 11/24/2013 55253 TEST, URINE (IN- HOUSE) 11/24/2013 55717 SKIN TAG REM 1-15 11/24/2013 J1050 DEPO PROVERA 02/23/2014 03019 TEST, URINE (IN- HOUSE) 02/23/2014 66686 THERAPUTIC INJ SQ/IM 02/23/2014 86721 UA LONG DIP 02/28/2014 93733 CULTURE URINE 02/28/2014 OBSTETRIC JULIO PEREZ 02/28/[address] SPINE, LUMBAR W/O CONTRAST 03/31/2014 27795 THERAPUTIC INJ SQ/IM 05/19/2014 J1050 DEPO PROVERA 05/19/2014 95907 TEST, URINE (IN- HOUSE) 05/19/2014 Results There is no data. Encounters ACCT No. Visit Date/Time Discharge Status Pt. Type Provider Facility Loc./Unit Complaint [id number] 08/14/2017 15:30:00 08/14/2017 23:59:59 CLS Preadmit BELLA GARCIA, CHANTE Ramirez [facility] RAD O35.5930 SMALL FOR DATES [id number] 07/29/2017 10:34:00 07/29/2017 23:59:59 CLS Outpatient ABHINAV GOEL DO [facility] RAD Z34.03 [id number] 04/08/2017 11:44:00 04/08/2017 23:59:59 CLS Outpatient JOSE EDUARDO ISRAEL MD [facility] RAD SURVEY [id number] 02/23/2017 20:16:00 02/23/2017 22:45:00 DIS Emergency JOSE PHELPS [facility] ER CHEST PAIN POSS PNEUMONIA 12 WKS PG [id number] 01/22/2017 11:30:00 01/22/2017 23:59:59 CLS Outpatient JOSEE DUARDO ISRAEL MD [facility] RAD DATES [id number] 06/09/2014 11:06:00 06/09/2014 11:34:00 DIS Emergency JONO OLGUIN MD [facility] ER RIGHT EYE REDNESS/ SWOLLEN [id number] 02/19/2013 18:14:00 02/19/2013 19:52:00 DIS Emergency RELL CRABTREE APRN [facility] ER RIB PAIN [id number] 12/31/2012 08:35:00 12/31/2012 14:40:00 DIS Outpatient LEONARDA BENAVIDES MD [facility] SDC LEFT BREAST LUMP [id number] 12/28/2012 12:18:00 12/28/2012 23:59:59 CLS Outpatient LEONARDA BENAVIDES MD [facility] PREOP LEFT BREAST LUMP [id number] 08/03/2012 11:12:00 Document Registration [id number] 01/15/2012 15:19:00 Document Registration [id number] 09/19/2014 10:46:00 09/19/2014 23:59:59 CLS Outpatient JORDAN VALDIVIA DO [id number] 08/11/2014 09:50:00 08/11/2014 23:59:59 CLS Outpatient SANDEE FOURNIER APRN [id number] 06/08/2014 11:16:00 06/08/2014 23:59:59 CLS Outpatient JORDAN VALDIVIA DO [id number] 05/19/2014 14:12:00 05/19/2014 23:59:59 CLS Outpatient RAFAEL HERNANDEZ APRN [id number] 03/31/2014 10:58:00 03/31/2014 23:59:59 CLS Outpatient JORDAN VALDIVIA DO [id number] 03/09/2014 09:20:00 03/09/2014 23:59:59 CLS Outpatient JORDAN VALDIVIA DO [id number] 02/28/2014 11:45:00 02/28/2014 23:59:59 CLS Outpatient JORDAN VALDIVIA DO [id number] 02/23/2014 11:55:00 02/23/2014 23:59:59 CLS Outpatient MAME REBOLLEDO APRN [id number] 01/26/2014 10:10:00 01/26/2014 23:59:59 CLS Outpatient JORDAN VALDIVIA DO [id number] 11/24/2013 09:34:00 11/24/2013 23:59:59 CLS Outpatient RAFAEL HERNANDEZ APRN [id number] 10/08/2013 15:47:00 10/08/2013 23:59:59 CLS Outpatient JORDAN VALDIVIA DO [id number] 09/14/2013 11:00:00 09/14/2013 23:59:59 CLS Outpatient DORITA CORDOBA APRN [id number] 09/06/2013 16:10:00 09/06/2013 23:59:59 CLS Outpatient IRLANDA ALVAREZN SANDEE Ramirez [id number] 08/11/2013 14:04:00 08/11/2013 23:59:59 CLS Outpatient JONATHAN GOMEZ MD [id number] 08/06/2013 15:14:00 08/06/2013 23:59:59 CLS Outpatient DAVID ALVAREZNIRENELeonel Castaneda [id number] 08/06/2013 15:14:00 08/06/2013 23:59:59 CLS Outpatient VALDIVIA DOJORDAN [id number] 07/27/2013 15:40:00 07/27/2013 23:59:59 CLS Outpatient VALDIVIA DOJORDAN [id number] 07/15/2013 13:44:00 07/15/2013 23:59:59 CLS Outpatient DAVID ALVAREZN RAFAEL E [id number] 06/22/2013 15:34:00 06/22/2013 23:59:59 CLS Outpatient VALDIVIA DO JORDAN Casanova [id number] 06/16/2013 13:32:00 06/16/2013 23:59:59 CLS Outpatient VALDIVIA DOJORDAN [id number] 05/25/2013 09:10:00 05/25/2013 23:59:59 CLS Outpatient KEELY CADENA PHD [id number] 04/20/2013 09:06:00 04/20/2013 23:59:59 CLS Outpatient KEELY CADENA PHD [id number] 04/15/2013 11:27:00 04/15/2013 23:59:59 CLS Outpatient VALDIVIA DOJORDAN [id number] 03/18/2013 12:55:00 03/18/2013 23:59:59 CLS Outpatient KEELY CADENA PHD [id number] 03/05/2013 15:37:00 03/05/2013 23:59:59 CLS Outpatient IRLANDA ALVAREZSANDEE Estrada [id number] 09/10/2012 08:58:00 09/10/2012 23:59:59 CLS Outpatient [id number] 07/28/2012 15:54:00 07/28/2012 23:59:59 CLS Outpatient VALDIVIA DO, JORDAN K [id number] 07/27/2012 15:10:00 07/27/2012 23:59:59 CLS Outpatient [id number] 07/20/2012 17:31:00 07/20/2012 23:59:59 CLS Outpatient [id number] 07/14/2012 16:22:00 07/14/2012 23:59:59 CLS Outpatient [id number] 05/20/2012 16:00:00 05/20/2012 23:59:59 CLS Outpatient SANDEE FOURNIER APRN [id number] 04/23/2012 14:48:00 04/23/2012 23:59:59 CLS Outpatient KEELY CADENA PHD [id number] 02/18/2013 16:27:00 Document Registration [id number] 11/17/2012 16:28:00 Document Registration [id number] 10/21/2012 15:07:00 Document Registration [id number] 09/29/2012 16:00:00 Document Registration [id number] 09/23/2012 10:48:00 Document Registration
--- NOTE | 2017-08-18 12:09 | Labor Progress Note ---
Labor Progress Note Labor Progress Note Date Seen by Provider: Aug 18, 2017 Time Seen by Provider: 11:07 S: No complaints from patient. Epidural placed. O: Vitals stable, SVE 4/80/-2 A/P - AROM: minimal clear fluid @ 1105 - Pitocin started - IUGR Vitals - Labs Vital Signs - I&O Vital Signs Date Time Temp Pulse Resp B/P (MAP) Pulse Ox O2 Delivery O2 Flow Rate FiO2 08/18/17 10:45 84 18 114/59 (77) 97 Non Rebreather 15.00 08/18/17 10:30 86 18 101/58 (72) 96 Non Rebreather 15.00 08/18/17 10:15 63 18 95/53 (67) 99 Non Rebreather 15.00 08/18/17 10:00 70 18 103/55 (71) 99 Non Rebreather 15.00 08/18/17 09:45 74 18 103/55 (71) 94 Non Rebreather 15.00 08/18/17 09:30 89 18 94 Room Air 08/18/17 09:20 90 18 113/79 (90) 96 Room Air 08/18/17 09:15 89 18 118/56 (76) 96 Room Air 08/18/17 09:00 93 18 118/78 (91) 96 Room Air 08/18/17 08:53 88 18 110/67 (81) 96 Room Air 08/18/17 08:50 90 18 114/82 (93) 97 Room Air 08/18/17 08:47 99 18 121/78 (92) 95 Room Air 08/18/17 08:43 99 18 121/78 (92) 95 Room Air 08/18/17 08:40 96 18 127/77 (94) 97 Room Air 08/18/17 08:37 103 18 124/64 (84) 97 Room Air 08/18/17 08:33 102 18 112/68 (83) 96 Room Air 08/18/17 08:31 102 18 120/74 (89) 97 Room Air 08/18/17 08:28 97 18 133/82 (99) 97 Room Air 08/18/17 08:24 101 18 135/74 (94) 97 Room Air 08/18/17 08:20 105 18 135/74 (94) 98 Room Air 3/12/18 08:14 85 18 123/83 (96) Room Air 08/18/17 08:00 85 18 123/83 (96) Room Air 08/18/17 07:45 77 18 119/70 (86) Room Air 08/18/17 07:30 88 18 117/60 (79) Room Air 08/18/17 07:15 97.2 85 18 116/79 (91) Room Air 08/18/17 07:00 92 18 114/64 (81) Room Air 08/18/17 06:45 85 18 108/66 (80) Room Air 08/18/17 06:30 81 18 105/68 (80) Room Air 08/18/17 06:15 81 18 107/66 (80) Room Air 08/18/17 06:00 85 18 122/69 (86) 94 Room Air 08/18/17 05:45 87 18 97/57 (70) 94 Room Air 08/18/17 05:15 88 18 97/57 (70) 97 Non Rebreather 15.00 08/18/17 04:45 86 18 99/55 (70) 100 Non Rebreather 15.00 08/18/17 04:15 87 18 111/71 (84) 100 Non Rebreather 15.00 08/18/17 03:50 97.2 93 18 124/72 (89) 97 Non Rebreather 15.00 08/18/17 03:15 92 18 124/72 (89) Non Rebreather 15.00 08/18/17 02:45 99.0 92 18 124/72 (89) Room Air 08/18/17 02:15 101 18 125/67 (86) Room Air 08/18/17 01:45 115 18 95/55 (68) Room Air 08/18/17 01:15 112 18 105/55 (72) Room Air 08/18/17 00:45 97.0 105 18 116/70 (85) Room Air 08/17/17 23:15 94 18 110/63 (79) Room Air 08/17/17 22:15 91 18 125/75 (92) Room Air 08/17/17 22:14 94 18 118/75 (89) Room Air 08/17/17 22:00 97.5 83 18 135/91 (106) 97 Room Air 08/17/17 21:50 97 Room Air 08/17/17 21:30 98.0 92 18 128/78 (95) 97 Room Air 08/17/17 21:00 97 Room Air I & O 08/18/17 07:00 Intake Total 1000 ml Balance 1000 ml Labs Laboratory Tests 08/17/17 21:00: White Blood Count 18.7H, Red Blood Count 3.62L, Hemoglobin 11.1L, Hematocrit 33L , Mean Corpuscular Volume 90, Mean Corpuscular Hemoglobin 31, Mean Corpuscular Hemoglobin Concent 34, Red Cell Distribution Width 13.5, Platelet Count 235, Mean Platelet Volume 13.0H, Neutrophils (%) (Auto) 78H, Lymphocytes (%) (Auto) 13, Monocytes (%) (Auto) 9, Eosinophils (%) (Auto) 0, Basophils (%) (Auto) 0, Neutrophils # (Auto) 14.5H, Lymphocytes # (Auto) 2.5, Monocytes # (Auto) 1.6H, Eosinophils # (Auto) 0.0, Basophils # (Auto) 0.0 DANTE LIM MD Aug 18, 2017 12:08 pm
[2017-08-18] MEDS: PRENATAL VITAMIN 1 EA TAB PO SCH (13:34)
[2017-08-18] MEDS ORDERED: LORazepam 1 MG (ATIVAN) TAB PO PRN (17:30)
[2017-08-18] MEDS ORDERED: BENZOCAINE/MENTHOL (DERMOPLAST) 56 ML CAN TP PRN (17:30)
[2017-08-18] MEDS ORDERED: WITCH HAZEL(TUCKS) 40 EA JAR TOP PRN (17:30)
[2017-08-18] MEDS ORDERED: HYDROcodone/APAP 5 MG/325 MG (LORTAB) TAB PO PRN (17:30)
[2017-08-18] MEDS ORDERED: DIBUCAINE (NUPERCAINAL) 1% OINT 30 GM TOP PRN (17:30)
--- NOTE | 2017-08-18 17:44 | OB Labor & Delivery Record ---
L&D History Date of Service Date of Service: Aug 18, 2017 History Expected Date of Delivery: Sep 08, 2018 Gestational Age in Weeks: 37 Hx : 1 Hx Para: 0 Complications Events: Routine care Insufficient care in third trimester US at 33 wks showed growth in 18th %-tile, but otherwise normal anatomy US at 36 wks showed growth in 8th %-tile, asymmetric with HC <2nd %-tile and femur length 23rd %-tile Operative Indications (Cesarea: N/A-Vaginal Delivery Intrapartal Events: None L&D Stage1 Stage One Onset of Labor - Date: Aug 18, 2017 Onset of Labor - Time: 02:00 Duration - Stage I: 11 hr 13 min Monitors and Tracing Monitor Mode: External Heart Rate: 120 Monitor Accelerations: Uniform Monitor Decelerations: Variable Station: +1 Supervisor Tellers Variability: Average (6-10) Short Term Variability: Present Presentation: Vertex Vital Signs VS - Last 72 Hours, by Label 08/17/17 08/17/17 08/17/17 08/17/17 21:00 21:30 21:50 22:00 Temp 98.0 97.5 Pulse 92 83 Resp 18 18 B/P (MAP) 128/78 (95) 135/91 (106) Pulse Ox 97 97 97 97 O2 Delivery Room Air Room Air Room Air Room Air 08/17/17 08/17/17 08/17/17 08/18/17 22:14 22:15 23:15 00:45 Temp 97.0 Pulse 94 91 94 105 Resp 18 18 18 18 B/P (MAP) 118/75 (89) 125/75 (92) 110/63 (79) 116/70 (85) O2 Delivery Room Air Room Air Room Air Room Air 08/18/17 08/18/17 08/18/17 08/18/17 01:15 01:45 02:15 02:45 Temp 99.0 Pulse 112 115 101 92 Resp 18 18 18 18 B/P (MAP) 105/55 (72) 95/55 (68) 125/67 (86) 124/72 (89) O2 Delivery Room Air Room Air Room Air Room Air 08/18/17 08/18/17 08/18/17 08/18/17 03:15 03:50 04:15 04:45 Temp 97.2 Pulse 92 93 87 86 Resp 18 18 18 18 B/P (MAP) 124/72 (89) 124/72 (89) 111/71 (84) 99/55 (70) Pulse Ox 97 100 100 O2 Delivery Non Rebreather Non Rebreather Non Rebreather Non Rebreather O2 Flow Rate 15.00 15.00 15.00 15.00 08/18/17 08/18/17 08/18/17 08/18/17 05:15 05:45 06:00 06:15 Pulse 88 87 85 81 Resp 18 18 18 18 B/P (MAP) 97/57 (70) 97/57 (70) 122/69 (86) 107/66 (80) Pulse Ox 97 94 94 O2 Delivery Non Rebreather Room Air Room Air Room Air O2 Flow Rate 15.00 08/18/17 08/18/17 08/18/17 08/18/17 06:30 06:45 07:00 07:15 Temp 97.2 Pulse 81 85 92 85 Resp 18 18 18 18 B/P (MAP) 105/68 (80) 108/66 (80) 114/64 (81) 116/79 (91) O2 Delivery Room Air Room Air Room Air Room Air 08/18/17 08/18/17 08/18/17 08/18/17 07:30 07:45 08:00 08:14 Pulse 88 77 85 85 Resp 18 18 18 18 B/P (MAP) 117/60 (79) 119/70 (86) 123/83 (96) 123/83 (96) O2 Delivery Room Air Room Air Room Air Room Air 08/18/17 08/18/17 08/18/17 08/18/17 08:20 08:24 08:28 08:31 Pulse 105 101 97 102 Resp 18 18 18 18 B/P (MAP) 135/74 (94) 135/74 (94) 133/82 (99) 120/74 (89) Pulse Ox 98 97 97 97 O2 Delivery Room Air Room Air Room Air Room Air 08/18/17 08/18/17 08/18/17 08/18/17 08:33 08:37 08:40 08:43 Pulse 102 103 96 99 Resp 18 18 18 18 B/P (MAP) 112/68 (83) 124/64 (84) 127/77 (94) 121/78 (92) Pulse Ox 96 97 97 95 O2 Delivery Room Air Room Air Room Air Room Air 08/18/17 08/18/17 08/18/17 08/18/17 08:47 08:50 08:53 09:00 Pulse 99 90 88 93 Resp 18 18 18 18 B/P (MAP) 121/78 (92) 114/82 (93) 110/67 (81) 118/78 (91) Pulse Ox 95 97 96 96 O2 Delivery Room Air Room Air Room Air Room Air 08/18/17 08/18/17 08/18/17 08/18/17 09:15 09:20 09:30 09:45 Pulse 89 90 89 74 Resp 18 18 18 18 B/P (MAP) 118/56 (76) 113/79 (90) 103/55 (71) Pulse Ox 96 96 94 94 O2 Delivery Room Air Room Air Room Air Non Rebreather O2 Flow Rate 15.00 08/18/17 08/18/17 08/18/17 08/18/17 10:00 10:15 10:30 10:45 Pulse 70 63 86 84 Resp 18 18 18 18 B/P (MAP) 103/55 (71) 95/53 (67) 101/58 (72) 114/59 (77) Pulse Ox 99 99 96 97 O2 Delivery Non Rebreather Non Rebreather Non Rebreather Non Rebreather O2 Flow Rate 15.00 15.00 15.00 15.00 08/18/17 08/18/17 08/18/17 08/18/17 11:00 11:15 11:30 11:45 Pulse 73 97 72 74 Resp 18 18 18 18 B/P (MAP) 109/71 (84) 107/58 (74) 98/56 (70) Pulse Ox 97 97 94 100 O2 Delivery Non Rebreather Non Rebreather Non Rebreather Non Rebreather O2 Flow Rate 15.00 15.00 15.00 15.00 08/18/17 08/18/17 08/18/17 08/18/17 12:00 12:15 12:30 12:45 Temp 98.1 Pulse 76 71 64 80 Resp 18 18 18 18 B/P (MAP) 94/50 (65) 97/53 (68) 97/61 (73) 95/62 (73) Pulse Ox 100 100 100 100 O2 Delivery Non Rebreather Non Rebreather Non Rebreather Non Rebreather O2 Flow Rate 15.00 15.00 15.00 15.00 08/18/17 08/18/17 08/18/17 08/18/17 13:00 13:15 13:30 13:45 Pulse 80 88 80 75 Resp 18 18 18 18 B/P (MAP) 95/62 (73) 96/53 (67) 90/52 (65) 95/58 (70) Pulse Ox 100 96 96 96 O2 Delivery Room Air Room Air Room Air Room Air 08/18/17 08/18/17 08/18/17 08/18/17 14:00 14:15 14:30 14:45 Pulse 85 81 83 87 Resp 18 18 18 18 B/P (MAP) 109/73 (85) 111/72 (85) 109/73 (85) 111/58 (75) Pulse Ox 95 97 97 97 O2 Delivery Room Air Non Rebreather Non Rebreather Room Air O2 Flow Rate 15.00 15.00 08/18/17 08/18/17 08/18/17 08/18/17 15:00 15:15 15:31 15:52 Pulse 105 74 136 93 Resp 18 18 18 18 B/P (MAP) 109/66 (80) 113/73 (86) 122/69 (86) 127/61 (83) O2 Delivery Room Air Room Air Room Air Room Air Fundal Ht/Cervical Dilatation Uterus Position: -2 Rupture of Membranes Spontaneous Ruture of Membrane: No Amniotic Membrane Rupture Time: 1104 Amniotic Membrane Fluid Desc.: Clear Vaginal Bleeding Description: Normal Show Induction/Anesthesia Epidural Cath Placement - Time: 830 L&D Stage2 Stage Two Stage II Date: Aug 18, 2017 Stage II Time: 13:13 Stage II Duration: 1 hr 18 min Monitors and Tracing Monitor Mode: External Heart Rate: 120 Monitor Accelerations: Non-Uniform Monitor Decelerations: Variable Senior Care Variability: Average (6-10) Short Term Variability: Present Position: Left Occiput Anterior Presentation: Vertex Cord Descript/Complications Cord Vessel Description: 3 Vessels Delivery Type Infant Delivery Method: Spontaneous Vaginal Anterior Shoulder: Left Episiotomy/Perineal Laceration Laceraction(s)/Extensions: Yes Episiotomy Description: 1st degree Sutures Used: Vicryl Condition of Infant Delivery Delivery Date & Time: 08/18/2017 at 1430 1 minute Comment: 1 5 minute Comment: 3 Notes at 10 minutes - 5 Condition of Condition of Infant: Living Exam: No Observed Abnormalities Resuscitation Resuscitation: Bag and Mask Resuscitation Comments: Attended to immediately after delivery with nursing staff, additional assistance called for and Dr. Cruz present, care of turned over L&D Stage3 Stage Three Stage III Date: Aug 18, 2017 Stage III Time: 14:38 Stage III Duration: 8 minutes Pictocin Pitocin Administration mu/min: 4 Pitocin ml/hr: 4 Pitocin Administration Comment: PITOCIN RESTARTED. Placenta Delivery Placenta Delivery: Spontaneous Delivery Summary Summary Total Labor Time 12 hrs 38 minutes Estimated blood loss (mL): 200 Attending at delivery: Dr. Goel Condition of Delivery Examined: Cervix Examined, Uterus Explored Post Hemorrhage: No Condition of Mother Stable Condition of Infant (s) Taken to nursery with nursery staff, RT and Dr. Cruz. Quiñonez called for transfer secondary to respiratory distress. ABHINAV GOEL DO Aug 18, 2017 17:44
[2017-08-18] MEDS: IBUPROFEN 600 MG (MOTRIN) TAB PO SCH (17:53)
--- NOTE | 2017-08-18 18:19 | OB Labor & Delivery Record ---
Vag Delivery Note Vag Delivery Note Date of Delivery: 08/18/17 Preoperative Diagnosis: Azul Joseph is a 21 /Para 1 / 0, Gestational Age 37 0/7 wks with growth restriction, insufficient care, tobacco abuse, s/p betamethasone x2 at 36 5/7 and 36 6/7 Postoperative Diagnosis: Same Surgeon: ABHINAV GOEL Anesthesia: Epidural Delivery Type: Spontaneous Vaginal Delivery Findings: Viable female infant, apgars 1,3,5, weight 2520 grams/5 lb 9 oz Lacerations: first degree Intact placenta with 3 vessel cord. No nuchal cord, body cord or shoulder dystocia Pitocin bolus for hemorrhage prophylaxis Estimated Blood Loss: 200 ml Complications: None Condition: Stable Description of Procedure: The patient is a 21 year old at 37 0/7 wks gestation who presented for scheduled induction last night secondary to growth restriction and asymmetric growth. She was admitted and informed consent was obtained. Her labor course was remarkable for periods of hyperstimulation and occasional decelerations. She progressed to complete dilatation and began to push. She was then set up for delivery. The infant's head was delivered atraumatically in the ITZEL position. The shoulders and remainder of the 's body were then delivered without difficulty. Upon delivery of the head, a nuchal cord was checked for and none was found. The was placed on the maternal abdomen with a weak cry and dusky color. The cord was allowed to pulsate briefly, but when the did not respond to stimulation, the cord was doubly clamped and cut and the was handed off to the pediatric staff. An intact placenta with 3-vessel cord delivered via Kylie and there was found to be minimal bleeding.~ Vigorous fundal massage was performed and the fundus was found to be firm. IV oxytocin was given. Examination of the vagina and perineum revealed a first degree laceration repaired in the usual fashion with 3-0 vicryl suture. Following the repair, sponge, instrument and needle counts were correct. Mom was in stable condition in the labor suite, was taken to the nursery with nursery staff, RT and Dr. Cruz for further assessment and stabilization. Vitals - Labs Vital Signs - I&O Vital Signs Date Time Temp Pulse Resp B/P (MAP) Pulse Ox O2 Delivery O2 Flow Rate FiO2 08/18/17 15:52 93 18 127/61 (83) Room Air 08/18/17 15:31 136 18 122/69 (86) Room Air 08/18/17 15:15 74 18 113/73 (86) Room Air 08/18/17 15:00 105 18 109/66 (80) Room Air 08/18/17 14:45 87 18 111/58 (75) 97 Room Air 08/18/17 14:30 83 18 109/73 (85) 97 Non Rebreather 15.00 08/18/17 14:15 81 18 111/72 (85) 97 Non Rebreather 15.00 08/18/17 14:00 85 18 109/73 (85) 95 Room Air 08/18/17 13:45 75 18 95/58 (70) 96 Room Air 08/18/17 13:30 80 18 90/52 (65) 96 Room Air 08/18/17 13:15 88 18 96/53 (67) 96 Room Air 08/18/17 13:00 80 18 95/62 (73) 100 Room Air 08/18/17 12:45 98.1 80 18 95/62 (73) 100 Non Rebreather 15.00 08/18/17 12:30 64 18 97/61 (73) 100 Non Rebreather 15.00 08/18/17 12:15 71 18 97/53 (68) 100 Non Rebreather 15.00 08/18/17 12:00 76 18 94/50 (65) 100 Non Rebreather 15.00 08/18/17 11:45 74 18 98/56 (70) 100 Non Rebreather 15.00 08/18/17 11:30 72 18 107/58 (74) 94 Non Rebreather 15.00 08/18/17 11:15 97 18 97 Non Rebreather 15.00 08/18/17 11:00 73 18 109/71 (84) 97 Non Rebreather 15.00 08/18/17 10:45 84 18 114/59 (77) 97 Non Rebreather 15.00 08/18/17 10:30 86 18 101/58 (72) 96 Non Rebreather 15.00 08/18/17 10:15 63 18 95/53 (67) 99 Non Rebreather 15.00 08/18/17 10:00 70 18 103/55 (71) 99 Non Rebreather 15.00 08/18/17 09:45 74 18 103/55 (71) 94 Non Rebreather 15.00 08/18/17 09:30 89 18 94 Room Air 08/18/17 09:20 90 18 113/79 (90) 96 Room Air 08/18/17 09:15 89 18 118/56 (76) 96 Room Air 08/18/17 09:00 93 18 118/78 (91) 96 Room Air 08/18/17 08:53 88 18 110/67 (81) 96 Room Air 08/18/17 08:50 90 18 114/82 (93) 97 Room Air 08/18/17 08:47 99 18 121/78 (92) 95 Room Air 08/18/17 08:43 99 18 121/78 (92) 95 Room Air 08/18/17 08:40 96 18 127/77 (94) 97 Room Air 08/18/17 08:37 103 18 124/64 (84) 97 Room Air 08/18/17 08:33 102 18 112/68 (83) 96 Room Air 08/18/17 08:31 102 18 120/74 (89) 97 Room Air 08/18/17 08:28 97 18 133/82 (99) 97 Room Air 08/18/17 08:24 101 18 135/74 (94) 97 Room Air 08/18/17 08:20 105 18 135/74 (94) 98 Room Air 08/18/17 08:14 85 18 123/83 (96) Room Air 08/18/17 08:00 85 18 123/83 (96) Room Air 08/18/17 07:45 77 18 119/70 (86) Room Air 08/18/17 07:30 88 18 117/60 (79) Room Air 08/18/17 07:15 97.2 85 18 116/79 (91) Room Air 08/18/17 07:00 92 18 114/64 (81) Room Air 08/18/17 06:45 85 18 108/66 (80) Room Air 08/18/17 06:30 81 18 105/68 (80) Room Air 08/18/17 06:15 81 18 107/66 (80) Room Air 08/18/17 06:00 85 18 122/69 (86) 94 Room Air 08/18/17 05:45 87 18 97/57 (70) 94 Room Air 08/18/17 05:15 88 18 97/57 (70) 97 Non Rebreather 15.00 08/18/17 04:45 86 18 99/55 (70) 100 Non Rebreather 15.00 08/18/17 04:15 87 18 111/71 (84) 100 Non Rebreather 15.00 08/18/17 03:50 97.2 93 18 124/72 (89) 97 Non Rebreather 15.00 08/18/17 03:15 92 18 124/72 (89) Non Rebreather 15.00 08/18/17 02:45 99.0 92 18 124/72 (89) Room Air 08/18/17 02:15 101 18 125/67 (86) Room Air 08/18/17 01:45 115 18 95/55 (68) Room Air 08/18/17 01:15 112 18 105/55 (72) Room Air 08/18/17 00:45 97.0 105 18 116/70 (85) Room Air 08/17/17 23:15 94 18 110/63 (79) Room Air 08/17/17 22:15 91 18 125/75 (92) Room Air 08/17/17 22:14 94 18 118/75 (89) Room Air 08/17/17 22:00 97.5 83 18 135/91 (106) 97 Room Air 08/17/17 21:50 97 Room Air 08/17/17 21:30 98.0 92 18 128/78 (95) 97 Room Air 08/17/17 21:00 97 Room Air I & O 08/18/17 07:00 Intake Total 1000 ml Balance 1000 ml Labs Laboratory Tests 08/17/17 21:00: White Blood Count 18.7H, Red Blood Count 3.62L, Hemoglobin 11.1L, Hematocrit 33L , Mean Corpuscular Volume 90, Mean Corpuscular Hemoglobin 31, Mean Corpuscular Hemoglobin Concent 34, Red Cell Distribution Width 13.5, Platelet Count 235, Mean Platelet Volume 13.0H, Neutrophils (%) (Auto) 78H, Lymphocytes (%) (Auto) 13, Monocytes (%) (Auto) 9, Eosinophils (%) (Auto) 0, Basophils (%) (Auto) 0, Neutrophils # (Auto) 14.5H, Lymphocytes # (Auto) 2.5, Monocytes # (Auto) 1.6H, Eosinophils # (Auto) 0.0, Basophils # (Auto) 0.0 ABHINAV GOEL DO Aug 18, 2017 18:19
[2017-08-18] MEDS ORDERED: ACHD5005 PO (18:37)
[2017-08-18] MEDS ORDERED: IBUP-1773 PO (18:37)
[2017-08-18] MEDS ORDERED: LORA1TAB PO (18:37)
[2017-08-18] MEDS ORDERED: NITR100C10 PO (18:37)
--- NOTE | 2017-08-18 18:50 | Discharge Instructions ---
Discharge Inst-Women's Serv Depart Medications New, Converted or Re-Newed RX: Transmitted to Pharmacy Final Diagnosis 37 week IUP - Delivered Insufficient Care Tobacco Abuse Anxiety Bipolar Disorder UTI - present on admission New Medications: Hydrocodone Bit/Acetaminophen (Hydrocodone/Acetaminophen 5/325mg Tablet) 1 Tab Tab 1-2 TAB PO Q6H PRN for PAIN-MODERATE MDD 6 tabs for 7 Days, #30 TAB Ibuprofen (Ibuprofen) 600 Mg Tablet 600 MG PO Q6H PRN for PAIN-MILD for 14 Days, #60 TAB Lorazepam (Lorazepam) 1 Mg Tablet 1 MG PO Q6H PRN for ANXIETY for 7 Days, #28 TAB Nitrofurantoin Monohyd/M-Cryst (Nitrofurantoin [place]-Mcr 100 mg) 100 Mg Capsule 100 MG PO BID for 4 Days, #8 CAP Continued Medications: Tki128/Iron Fumarate/FA/Dss ( 19 Tablet) 1 Each Tablet 1 EACH PO DAILY, TAB Follow Up/Instructions Goal/Follow Up: Dr. Goel in 6 weeks Patient Instructions: Pelvic rest until after seen at 6 week visit Activity Activity: Activity as Tolerated Driving Instructions: No Driving for 24 Hours NO SMOKING: NO SMOKING Nothing Inside Vagina: No Douching, No [place], No Tampons Diet Discharge Diet: No Restrictions Return to The Hospital For: Temp >100.4 that does not improve with Tylenol or Motrin, Pain unrelieved by prescription medications, foul vaginal discharge, heavy bleeding that saturates a pad per hour for two hours in a row, chest pain or pressure, shortness of breath, nausea or vomiting that makes you unable to keep down clear liquids for more than 6-12 hours, if directed by switchboard receptionist provider, or any other emergent complaints or concerns Symptoms to Report to : Extremity Discoloration, Bleeding Excessive, Fever Over 101 Degrees F, Pain/Pressure in Chest, Cough Up/Vomit Blood, Vaginal Discharge Foul, Diarrhea(Persistant), Questions/Concerns, Dizziness/Fainting, Shortness of Breath For Any Problems or Questions: Contact Your Physician, Go to Emergency Room, Go to [facility] Care Skin/Wound Care Bathing Instructions: Tub, Shower Copies To 1: ABHINAV GOEL MARGARET E DO Aug 18, 2017 18:50
[2017-08-18] MEDS ORDERED: NITROFURANTOIN 100 MG (MACROBID) CAPSULE PO SCH (21:00)
[2017-08-18] MEDS ORDERED: CATHETER FLUSH 10 ML SYR IV SCH (22:00)
[2017-08-18] MEDS: DOCUSATE SODIUM 100 MG (COLACE) CAP PO SCH (22:21)
[2017-08-19 00:30] VITALS: BP 112/72
[2017-08-19 04:15] VITALS: BP 119/78
[2017-08-19] MEDS: IBUPROFEN 600 MG (MOTRIN) TAB PO SCH ×2 (04:15→09:47)
[2017-08-19 06:44] LABS: BASOPHILS % (AUTO) 0 % (0-10); EOSINOPHILS # (AUTO) 0.1 10^3/uL (0.0-0.3); EOSINOPHILS % (AUTO) 0 % (0-10); HEMATOCRIT 31 % (35-52); HEMOGLOBIN 10.3 G/DL (11.5-16.0); LYMPHOCYTES # (AUTO) 2.5 X 10^3 (1.0-4.0); LYMPHOCYTES % (AUTO) 19 % (12-44); MEAN CORPUSCULAR HEMOGLOBIN 30 PG (25-34); MEAN CORPUSCULAR HGB CONC 33 G/DL (32-36); MEAN CORPUSCULAR VOLUME 91 FL (80-99); MONOCYTES # (AUTO) 1.2 X 10^3 (0.0-1.0); MONOCYTES % (AUTO) 9 % (0-12); NEUTROPHILS # (AUTO) 9.8 X 10^3 (1.8-7.8); NEUTROPHILS % (AUTO) 72 % (42-75); PLATELET COUNT 185 10^3/uL (130-400); RED BLOOD COUNT 3.41 10^6/uL (4.35-5.85); RED CELL DISTRIBUTION WIDTH 13.4 % (10.0-14.5); WHITE BLOOD COUNT 13.6 10^3/uL (4.3-11.0)
[2017-08-19 09:45] VITALS: BP 123/89
[2017-08-19] MEDS: DOCUSATE SODIUM 100 MG (COLACE) CAP PO SCH (09:47)
[2017-08-19] MEDS: PRENATAL VITAMIN 1 EA TAB PO SCH (09:48)
--- NOTE | 2017-08-19 10:06 | Discharge Summary ---
Diagnosis/Chief Complaint Date of Admission Aug 17, 2017 at 8:20 pm Date of Discharge August 19, 2017 Admission Diagnosis Admission Diagnosis of 37 week gestation female with IUGR and Oligo Discharge Diagnosis Term of female infant @ 37 weeks gestation with IUGR, Oligo - transferred for respiratory distress Discharge Summary-Simple/Stand Discharge Physical Examination Allergies: Coded Allergies: No Known Drug Allergies (Unverified , 12/28/12) Vitals & I&Os Vital Sign - Last 12Hours Date Time Temp Pulse Resp B/P (MAP) Pulse Ox O2 Delivery O2 Flow Rate FiO2 08/19/17 09:45 97.5 85 20 123/89 (100) Room Air 08/19/17 04:15 96 08/18/17 14:30 15.00 Intake and Output 08/19/17 00:00 Intake Total 1500 ml Balance 1500 ml General Appearance: Alert, Oriented X3, Cooperative, No Acute Distress HEENT: Mucous Memb Moist/[place] Respiratory: Clear to Auscultation, Normal Air Movement Cardiovascular: Regular Rate, No Murmurs Abdominal: Normal Bowel Sounds, Soft, No Tenderness, No Masses Extremities: No Edema, No Tenderness/Swelling Skin: No Rashes Neuro: Normal Speech, Strength at 5/5 X4 Ext Psych/Mental Status: Mental Status NL, Mood NL Hospital Course See final discharge diagnosis. Discussion & Recommendations @ 37 weeks with IUGR and Oligo Discharge Condition at discharge stable Instructions to patient/family Please see electronic discharge instructions given to patient. Discharge Medications Reviewed and agree with Discharge Medication list on patient's Discharge Instruction sheet Clinical Quality Measures DVT/VTE Risk/Contraindication: Risk Factor Score Per Nursin RFS Level Per Nursing on Admit: 2=Moderate Copy Copies To 1: ABHINAV GOEL HOLLY R MD Aug 19, 2017 10:06 am
--- NOTE | 2017-08-19 14:49 | Anesthesia-Regional Post-Op ---
Regional Patient Condition Mental Status: Alert, Oriented x3 Circulation: Same as Pre-Op Headache: Absent Sensation: Full Recovery Motor Block: Absent Post Op Complications Complications None Follow Up Care/Instructions Patient Instructions None needed. Anesthesia/Patient Condition Patient was seen this morning by AILYN Mazariegos and was doing well, no complaints, stable vital signs, no apparent adverse anesthesia problems. When I came to see patient at 1415 to see patient, she was already discharged. No complaints per RN. DESI CAZARES DO Aug 19, 2017 14:49
== END 2017-08-19 12:10 | disposition home or self-care (01) | DRG 775 ==
LOC: LDRP 20:20
PROVIDERS: ADMIT Family Medicine; ATTEND Family Medicine
PROC: 0W8NXZZ Division of Female Perineum, External Approach (ICD-10-PCS; principal; 2017-08-18)
PROC: 10E0XZZ Delivery of Products of Conception, External Approach (ICD-10-PCS; 2017-08-18)
PROC: 3E033VJ Introduction of Other Hormone into Peripheral Vein, Percutaneous Approach (ICD-10-PCS; 2017-08-18)
DX: O36.5930 Maternal care for other known or suspected poor fetal growth, third trimester, not applicable or unspecified (principal); O70.0 First degree perineal laceration during delivery; O41.03X0 Oligohydramnios, third trimester, not applicable or unspecified; O99.513 Diseases of the respiratory system complicating pregnancy, third trimester; J45.20 Mild intermittent asthma, uncomplicated; O99.344 Other mental disorders complicating childbirth; F31.9 Bipolar disorder, unspecified; M41.9 Scoliosis, unspecified; O99.354 Diseases of the nervous system complicating childbirth; G43.909 Migraine, unspecified, not intractable, without status migrainosus; O99.334 Smoking (tobacco) complicating childbirth; F17.210 Nicotine dependence, cigarettes, uncomplicated; O26.893 Other specified pregnancy related conditions, third trimester; F98.8 Other specified behavioral and emotional disorders with onset usually occurring in childhood and adolescence; Z3A.37 37 weeks gestation of pregnancy; Z37.0 Single live birth; Z23 Encounter for immunization
CPT/HCPCS: 36415; 85025; 86850; 86900; 86901

== ENCOUNTER → 2021-01-04 | Outpatient (CLI) | payer MEDICAID ==
[~2021-01-04] MED LIST changes: +ACHD5005 PO; +IBUP-1773 PO; +LORA1TAB PO; +NITR100C10 PO
--- NOTE | 2021-01-04 09:05 | Diagnostic Imaging Report ---
PROCEDURE: US Abdomen, limited. TECHNIQUE: Multiple realtime grayscale images were obtained over the abdomen in various projections. INDICATION: Right upper quadrant pain The liver, gallbladder and bile ducts are normal. Pancreas is obscured by gas. The aorta is obscured by gas. The IVC is normal. The right kidney is normal. There is no ascites. IMPRESSION: No acute abnormality is seen. Dictated by: Dictated on workstation # [id number]
== END ==
LOC: RAD 07:00
PROVIDERS: ATTEND Family Medicine
DX: R10.11 Right upper quadrant pain (principal)
CPT/HCPCS: 76705

== ENCOUNTER 2021-03-07 19:50 | Outpatient (CLI) | payer MEDICAID ==
[~2021-03-07] VITALS: Ht 167.7 cm; Wt 82.1 kg
[2021-03-07 20:46] VITALS: BP 117/60
[2021-03-07 21:04] LABS: BILIRUBIN,URINE NEGATIVE (NEGATIVE); CLARITY,URINE CLEAR; COLOR,URINE YELLOW; GLUCOSE, URINE (UA) NEGATIVE (NEGATIVE); KETONES,URINE NEGATIVE (NEGATIVE); LEUKOCYTE ESTERASE ,URINE NEGATIVE (NEGATIVE); NITRITE,URINE NEGATIVE (NEGATIVE); PROTEIN,URINE NEGATIVE (NEGATIVE)
[2021-03-07 21:25] LABS: BACTERIA,URINE NEGATIVE /HPF; RBC,URINE 0-2 /HPF; SQUAMOUS EPITHELIAL CELL,UR 0-2 /HPF; WBC,URINE 0-2 /HPF
[2021-03-07] MEDS ORDERED: SERT50TA2 PO (21:59)
[2021-03-07] MEDS ORDERED: hydrOXYzine (VISTARIL/ATARAX) 25 MG capsule/tablet PO ONE (22:00)
[2021-03-07 22:06] VITALS: BP 117/60
--- NOTE | 2021-03-08 08:55 | Physician Query-Final Dx ---
Clinic Account Progress/Dx Physician Query: Please give diagnosis Please include # weeks gestation Date of Service Mar 07, 2021 at 19:50 RENA CM Mar 08, 2021 08:55
== END 2021-03-07 22:26 ==
LOC: LDRP 19:50 → WSo 19:50
PROVIDERS: ATTEND Family Medicine
DX: Z34.90 Encounter for supervision of normal pregnancy, unspecified, unspecified trimester (principal); Z3A.00 Weeks of gestation of pregnancy not specified
CPT/HCPCS: 81000; 99213